=== PATIENT | female | born 1940 | race Caucasian/White ===

== ENCOUNTER 2016-04-08 15:17 | Outpatient (CLI) | payer MEDICARE | END 2016-04-08 15:18 | disposition home or self-care (01) | DX: R61 Generalized hyperhidrosis (principal); R68.83 Chills (without fever); R05 Cough ==

== ENCOUNTER 2016-04-08 15:40 | Outpatient (CLI) | payer MEDICARE | END 2016-04-08 15:41 | disposition home or self-care (01) | DX: J98.11 Atelectasis (principal); R05 Cough; R61 Generalized hyperhidrosis; R68.83 Chills (without fever) ==

== ENCOUNTER 2016-04-25 08:28 | Outpatient (CLI) | payer MEDICARE | END 2016-04-25 08:29 | disposition home or self-care (01) | DX: Q50.5 Embryonic cyst of broad ligament (principal) ==

== ENCOUNTER 2016-06-26 12:07 | Outpatient (CLI) | payer MEDICARE | END 2016-06-26 12:08 | disposition home or self-care (01) | DX: R50.9 Fever, unspecified (principal); M79.1 Myalgia; R05 Cough ==

== ENCOUNTER 2016-07-07 10:04 | Emergency (ER) | payer MEDICARE ==
[2016-07-07] MEDS ORDERED: SODIUM CHLORIDE 0.9% 1,000 ML IV ONE (10:48)
[2016-07-07] MEDS ORDERED: ONDANSETRON 4 MG/2 ML VIAL IVP STA (10:49)
[2016-07-07] MEDS ORDERED: ONDANSETRON 4 MG/2 ML VIAL ONE (11:03)
[2016-07-07] MEDS ORDERED: IOPAMIDOL-300 100 ML VIAL IVP ONE (12:03)
[2016-07-07] MEDS ORDERED: POTASSIUM BICARB 25 MEQ TABLET PO STA (12:21)
[2016-07-07] MEDS ORDERED: POTASSIUM BICARB 25 MEQ TABLET PO ONE (12:23)
[2016-07-07] MEDS ORDERED: DOXYCYCLINE 100 MG TABLET PO STA (13:10)
[2016-07-07] MEDS ORDERED: DOXYCYCLINE 100 MG TABLET PO ONE (13:22)
== END 2016-07-07 14:08 | disposition home or self-care (01) ==
DX: K57.32 Diverticulitis of large intestine without perforation or abscess without bleeding (principal); E86.0 Dehydration; R55 Syncope and collapse; K21.9 Gastro-esophageal reflux disease without esophagitis; Z90.49 Acquired absence of other specified parts of digestive tract; E03.9 Hypothyroidism, unspecified; Z88.1 Allergy status to other antibiotic agents; Z88.0 Allergy status to penicillin
CPT/HCPCS: 36415; 74177; 80053; 81003; 83605; 83690; 84484; 85025; 87040; 99283; 99284; A9270; Q9967

== ENCOUNTER 2016-10-10 11:13 | Outpatient (CLI) | payer MEDICARE ==
--- NOTE | 2016-10-10 18:12 | Ultrasound Report ---
LEFT BREAST ULTRASOUND: 10/10/2016 CLINICAL INDICATION: Nodule on mammogram. TECHNIQUE: Real-time scanning was performed with petroleum products sales representative static images obtained. Ultrasound of the left periareolar breast was performed. In the lower-outer periareolar breast, ther e is a 0.9 x 0.5 x 0.8 cm nodule, with vascularity. The appearance is suspicious. Biopsy is recomme nded. The nodule appears amenable to ultrasound-guided core needle biopsy. IMPRESSION: SMALL SOLID NODULE IN THE LEFT PERIAREOLAR BREAST. RECOMMENDATION: BIOPSY. THE NODULE APPEARS AMENABLE TO ULTRASOUND-GUIDED CORE NEEDLE BIOPSY. BIRADS CATEGORY: 4, SUSPICIOUS ABNORMALITY. Results and recommendations discussed with the patient at the time of the examination, and called to Dr. Sharma on 10/10/2016. Biopsy is scheduled for 10/24/2016 at 9:45 a.m. JOB #: [id number] EXT JOB #:[id number]
--- NOTE | 2016-10-10 19:24 | Mammography Report ---
DIGITAL DIAGNOSTIC BILATERAL MAMMOGRAM: 10/10/2016 CLINICAL INDICATION: Nipple itching left greater than right. TECHNIQUE: Bilateral CC, MLO, true lateral views. COMPARISON: 01/04/2016, 11/26/2013, 10/22/2012, 09/27/2011, 12/12/2009, 11/20/2007, 11/20/2006. The breasts again demonstrate fatty replacement bilaterally. A few coarse, typically benign calcific ations are present. In the left retroareolar breast, there is a circumscribed 9 mm nodule. No mammo graphically suspicious findings are appreciated in the right breast. Please also refer to left breas t ultrasound of the same day. IMPRESSION: SUSPICIOUS ABNORMALITY, WITH A SOLID NODULE ON ULTRASOUND CORRELATING WITH THE LEFT RETR OAREOLAR MAMMOGRAPHIC ABNORMALITY. RECOMMENDATION: BIOPSY. THE NODULE APPEARS AMENABLE TO ULTRASOUND-GUIDED CORE NEEDLE BIOPSY. BIRADS CATEGORY: 4, SUSPICIOUS ABNORMALITY. Results and recommendations discussed with the patient at the time of the examination, and called to Dr. Sharma on 10/10/2016. Biopsy is scheduled for 10/24/2016 at 9:45 a.m. STANDARD QUALIFYING STATEMENTS 1. This examination was reviewed with the aid of Computed-Aided Detection (CAD). 2. A negative or benign imaging report should not delay biopsy if clinically suspicious findings are present. Consider surgical consultation if warranted. More than 5% of cancers are not identified b y imaging. 3. Dense breasts may obscure an underlying neoplasm. JOB #: [id number] EXT JOB #:[id number]
== END 2016-10-10 11:14 | disposition home or self-care (01) ==
LOC: DI 11:13
PROVIDERS: ATTEND Internal Medicine
DX: N63 Unspecified lump in breast (principal)
CPT/HCPCS: 76642; G0204; 77066

== ENCOUNTER 2016-10-23 08:50 | Outpatient (CLI) | payer MEDICARE ==
[2016-10-23] MEDS: BUFFERED LIDOCAINE 10 ML SYRINGE IU ONE ×2 (11:01→11:03)
[2016-10-23 11:36] VITALS: BP 152/91
[2016-10-23] MEDS ORDERED: SODIUM CHLORIDE 0.9% EPI SCH (12:00)
[2016-10-23] MEDS ORDERED: BUPIVACAINE 0.5% EPI SCH (12:00)
--- NOTE | 2016-10-23 12:08 | Ultrasound Report ---
ULTRASOUND-GUIDED CORE NEEDLE BIOPSY LEFT BREAST NODULE: 10/23/2016 CLINICAL INDICATION: Periareolar nodule. FINDINGS: Following obtaining informed consent, the left breast was prepped and draped in the usual sterile fashion. Using standard aseptic technique, both 1% buffered lidocaine and Marcaine were injec falguni into the left breast for local anesthesia. A small sade was made in the skin with a #11 blade. A 12-gauge Celero vacuum-assisted device was used to obtain three specimens. A Celero marker was placed into the biopsy cavity under ultrasound guidance. The patient was taken to a separate mammography machine, and a two view digital mammogram was performed, documenting the greg er in the expected location and no significant postbiopsy hematoma. The wound was dressed and ice applied. The patient was observed for approximately 15 minutes, then wa s discharged from [facility] in good condition following instructions on wound care and obtai margaret biopsy results. The tissue was sent for histologic analysis. IMPRESSION: ULTRASOUND-GUIDED BIOPSY OF THE LEFT BREAST. AN ADDENDUM WILL BE MADE TO THIS REPORT WHEN PATHOLOGY IS REVIEWED TO ESTABLISH CONCORDANCE. JOB #: [id number] EXT JOB #:[id number]
== END 2016-10-23 08:51 | disposition home or self-care (01) ==
LOC: DI 08:50
PROVIDERS: ATTEND Internal Medicine
DX: N60.02 Solitary cyst of left breast (principal); N60.82 Other benign mammary dysplasias of left breast
CPT/HCPCS: 19083; G0206; 88305

== ENCOUNTER 2016-11-05 13:59 | Inpatient (IN) | payer MEDICARE ==
[2016-11-05] MEDS ORDERED: HYDROmorphone 1 MG/ML SYRINGE IVP STA (15:17)
[2016-11-05] MEDS ORDERED: SODIUM CHLORIDE 0.9% 1,000 ML IV ONE (15:17)
[2016-11-05] MEDS ORDERED: ONDANSETRON 4 MG/2 ML VIAL IVP STA (15:18)
[2016-11-05 15:40] LABS: BASOPHILS # (AUTO) 0.1 10^3/uL (0.0-0.1); BASOPHILS % (AUTO) 0.6 %; EOSINOPHILS % (AUTO) 0.3 %; HCT - HEMATOCRIT 38.6 % (37.0-47.0); HGB - HEMOGLOBIN 13.1 g/dL (12.0-16.0); LYMPHOCYTES # (AUTO) 1.4 10^3/uL (1.5-3.5); LYMPHOCYTES % (AUTO) 12.7 %; MEAN CORPUSCULAR HEMOGLOBIN 29.7 pg (27.0-31.0); MEAN CORPUSCULAR HGB CONC 33.9 g/dL (32.0-36.0); MEAN CORPUSCULAR VOLUME 87.8 fL (81.0-99.0); MEAN PLATELET VOLUME 8.5 fL (7.9-10.8); MONOCYTES # (AUTO) 0.8 10^3/uL (0.0-1.0); NEUTROPHILS # (AUTO) 8.9 10^3/uL (1.5-6.6); NEUTROPHILS % (AUTO) 79.4 %; UNCORRECTED WHITE BLOOD COUNT 11.2 x10^3/uL; WHITE BLOOD COUNT 11.2 x10^3/uL (4.8-10.8)
[2016-11-05] MEDS ORDERED: HYDROmorphone 1 MG/ML SYRINGE ONE (15:46)
[2016-11-05] MEDS ORDERED: ONDANSETRON 4 MG/2 ML VIAL ONE (15:46)
--- NOTE | 2016-11-05 15:48 | ED Physician Documentation ---
History of Present Illness - Stated complaint Stated Complaint: DEVERTICULITIS - Chief complaint Chief Complaint: Abd Pain - Additonal information Additional information: hx from pt 76 female hx recurrent diverticulitis onset lower abd pain last night felt like prior case of divertic so she started doxy which is the only ab she is not allergic too now pain is severe - much worse than prior episode, mostly lower abd, + diarrhea pshx appy Review of Systems Constitutional: denies: Fever Cardiac: denies: Chest pain / pressure Respiratory: denies: Dyspnea GI: reports: Abdominal Pain, Diarrhea Neurologic: denies: Generalized weakness Endocrine: denies: Easy bruising / bleeding Immunocompromised: denies: Immunocompromised PD PAST MEDICAL HISTORY - Past Medical History Cardiovascular: None Respiratory: None Neuro: None Endocrine/Autoimmune: HyPOthyroidism GI: GERD, Diverticulitis, 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 HEENT: Chronic hearing loss Musculoskeletal: None Derm: Herpes zoster - Past Surgical History Past Surgical History: Yes General: Appendectomy HEENT: Tonsil/Adenoidectomy - Present Medications Home Medications: Ambulatory Orders Medication Instructions Recorded Confirmed Levothyroxine Sodium [Tirosint] 100 mcg PO DAILY 06/08/13 11/05/16 Doxycycline Hyclate 100 mg PO BID #20 capsule 07/07/16 11/05/16 - Allergies Allergies/Adverse Reactions: Allergies Allergy/AdvReac Type Severity Reaction Status Date / Time metronidazole [From Flagyl] Allergy Severe Unknown Verified 11/05/16 14:33 Metronidazole HCl * Allergy Mild Unknown Verified 11/05/16 14:33 [From Flagyl] acetaminophen [From Vicodin] Allergy Unknown Verified 11/05/16 14:33 cephalexin monohydrate * Allergy Unknown Verified 11/05/16 14:33 [From Keflex] codeine Allergy Respiratory Verified 11/05/16 14:33 hydrocodone bitartrate * Allergy Unknown Verified 11/05/16 14:33 [From Vicodin] meperidine HCl * Allergy Hives Verified 11/05/16 14:33 [From Demerol] moxifloxacin HCl * Allergy Unknown Verified 11/05/16 14:33 [From Avelox] naproxen [From Naprosyn] Allergy Hives Verified 11/05/16 14:33 Penicillins Allergy Unknown Verified 11/05/16 14:33 ciprofloxacin AdvReac Mild vomiting Verified 11/05/16 14:33 - Social History Does the pt smoke?: No Smoking Status: Never smoker Does the pt drink ETOH?: Yes Does the pt have substance abuse?: No - Immunizations Immunizations are current?: Yes - POLST Patient has POLST: No PD ED PE NORMAL - Vitals Vital signs reviewed: Yes - Cardiac Cardiac: RRR - Respiratory Respiratory: No respiratory distress - Abdomen Abdomen: Other (dec bowel sounds, mildly distended, markedly tender with rebound to lower abd diffusely, no inguinal hernia apprciated) - Derm Derm: Normal color - Neuro Neuro: Alert and oriented X 3 Results - Vitals Vitals: Vital Signs - 24 hr 11/05/16 11/05/16 11/05/16 14:30 17:53 20:13 Temperature 37.6 C H 36.7 C Heart Rate 91 74 83 Respiratory 16 14 18 Rate Blood Pressure 142/84 H 124/65 120/77 O2 Saturation 96 99 96 Oxygen O2 Source Room air - Labs Labs: Laboratory Tests 11/05/16 11/05/16 11/05/16 15:25 15:25 17:45 WBC 11.2 H RBC 4.40 Hgb 13.1 Hct 38.6 MCV 87.8 MCH 29.7 MCHC 33.9 RDW 13.0 Plt Count 220 MPV 8.5 Neut # 8.9 H Lymph # 1.4 L [place] # 0.8 Eos # 0.0 Baso # 0.1 Absolute Nucleated RBC 0.00 Nucleated RBCs 0.0 Sodium 139 Potassium 2.8 L Chloride 104 Carbon Dioxide 26 Anion Gap 9.0 BUN 9 Creatinine 0.9 Estimated GFR (MDRD) 61 L Glucose 131 H Calcium 9.3 Total Bilirubin 0.8 AST 15 ALT 20 Alkaline Phosphatase 62 Total Protein 6.8 Albumin 3.8 Globulin 3.0 Albumin/Globulin Ratio 1.3 Lipase 21 L Urine Color YELLOW Urine Clarity CLEAR Urine pH 5.5 Ur Specific [place] 1.015 Urine Protein NEGATIVE Urine Glucose (UA) NEGATIVE Urine Ketones NEGATIVE Urine Occult Blood TRACE-INTA Urine Nitrite NEGATIVE Urine Bilirubin NEGATIVE Urine Urobilinogen 0.2 (NORMAL) Ur Leukocyte Esterase NEGATIVE Ur Microscopic Review NOT INDICATED Urine Culture Comments NOT INDICATED - Rads (name of study) CT abd pelvis Radiology: See rad report (marked mid and distal sigmoid diverticultis without obstruction or abscess, large ddx) PD MEDICAL DECISION MAKING - ED course ED course: pt has many med allergies and only can take doxy already on PO doxy at home states she cannot take penicillins or cephalosporins or cipro or flagyl so will try doxy IV given severity of pain and CT findings and failing PO tx at home albeit with a less than ideal ab regimen 2/2 allergies, feel pt merits admission Departure - Departure Disposition: [facility] DC/Evaristo Clinical Impression: Diverticulitis of gastrointestinal tract Discharge Date/Time: 11/05/16 22:32
[2016-11-05 15:52] LABS: ALBUMIN/GLOBULIN RATIO 1.3 (1.0-2.2); BILIRUBIN,TOTAL 0.8 mg/dL (0.2-1.0); CALCIUM 9.3 mg/dL (8.5-10.3); CREATININE 0.9 mg/dL (0.4-1.0); POTASSIUM 2.8 mmol/L (3.5-5.0); TOTAL PROTEIN 6.8 g/dL (6.7-8.2)
[2016-11-05 18:16] LABS: BILIRUBIN,URINE NEGATIVE (NEGATIVE); PH,URINE 5.5 PH (5.0-7.5); UA CHARGE (STRIP ONLY) YES; UR CULTURE IF IND NOT INDICATED
--- NOTE | 2016-11-05 19:46 | CT Preliminary Report ---
Exam: CT Abdomen/Pelvis W/O IMPRESSION: Marked mid and distal sigmoid diverticulitis without obstruction or abscess formation at this time. Full differential would also include colitis, pseudomembranous colitis, inflammatory bowel disease, ischemia. This is in the same region that previously had very mild inflammatory changes. [facility] SITE ID: [id number]
--- NOTE | 2016-11-05 20:17 | CT Report ---
EXAM: CT ABDOMEN AND PELVIS EXAM DATE: 11/05/2016 04:16 PM. CLINICAL HISTORY: History of diverticulitis. Lower abdominal pain for the last 2 days. COMPARISONS: 07/07/2016. TECHNIQUE: Routine helical CT imaging was performed through the abdomen and pelvis. IV contrast: None . Enteric contrast: No. Reconstructions: Coronal and sagittal. In accordance with CT protocol optimization, one or more of the following dose reduction techniques w ere utilized for this exam: automated exposure control, adjustment of mA and/or KV based on patient s ize, or use of iterative reconstructive technique. FINDINGS: Lung Bases: Unremarkable. Liver: Normal. No masses. Gallbladder/Bile Ducts: Cholecystectomy. Spleen: Normal. Pancreas: Normal. Adrenal Glands: Normal. Kidneys: Normal. No masses or hydronephrosis. Peritoneal Cavity/Bowel: Diverticula off the colon. Interval development of marked irregular wall thi ckening, multiple inflamed diverticuli, and moderate amount of adjacent mesenteric edema involving th e mid and distal 10 cm of the sigmoid colon. This is in the same region where previously only a small amount of mesenteric edema was present. No extraluminal air. Small amount of free fluid adjacent to it. Appendix not visualized. No free air nor significant adenopathy. Large and small bowel normal caliber. Pelvic Organs: No stones in the small caliber urinary bladder. Uterus is normal caliber. Small amount of free fluid adjacent to the inflamed sigmoid colon. Vasculature: No aneurysms or other significant abnormality. Bones: Marked degenerative disk disease L5-S1. Other: None. IMPRESSION: Marked mid and distal sigmoid diverticulitis without obstruction or abscess formation at this time. Full differential would also include colitis, pseudomembranous colitis, inflammatory bowel disease, ischemia. This is in the same region that previously had very mild inflammatory changes. [facility] Referring Provider Line: [phone] SITE ID: [id number]
[2016-11-05] MEDS ORDERED: DOXYCYCLINE INJ 100 MG in SODIUM CHLORIDE 0.9% MINIBAG 100 ML IV STA (20:22)
[2016-11-05] MEDS ORDERED: ONDANSETRON ODT 4 MG TABLET TL PRN (20:50)
[2016-11-05] MEDS ORDERED: ONDANSETRON 4 MG/2 ML VIAL IVP PRN (20:50)
[2016-11-05] MEDS ORDERED: HYDROmorphone 1 MG/ML SYRINGE IVP PRN (20:50)
[2016-11-05] MEDS ORDERED: IMIPENEM/CILASTATIN 250 MG in SODIUM CHLORIDE 0.9% MINIBAG 100 ML IV SCH (21:00)
[2016-11-05] MEDS ORDERED: CLINDAMYCIN INJ 300 MG in SODIUM CHLORIDE 0.9% 50 ML IV SCH (21:23)
[2016-11-05] MEDS ORDERED: SODIUM CHLORIDE 0.9% 50 ML IV ONE (22:35)
[2016-11-05] MEDS: SODIUM CHLORIDE 0.9% 1,000 ML IV SCH (22:38)
[2016-11-05] MEDS: AZTREONAM 2 GM in SODIUM CHLORIDE 0.9% MINIBAG 100 ML IV SCH (22:38)
[2016-11-05] MEDS: SODIUM CHLORIDE FLUSH 0.9% 10 ML SYRINGE IVP SCH (23:04)
[2016-11-05] MEDS ORDERED: CLINDAMYCIN 300 MG/2 ML VIAL ONE (23:10)
--- NOTE | 2016-11-06 00:01 | HISTORY & PHYSICAL EXAMINATION ---
Chief Complaint - Chief Complaint Chief Complaint: LLQ pain in a patient with recurrent boughts of diverticulitis for 7 years. History of Present Illness - Admitted From Admitted From:: Emergency room - History Obtained [facility] History obtained from: Patient and Dr. Chavez - History of Present Illness HPI Comment/Other: She has had multiple episodes over the last 6-7 years with several episodes documented by ct scan : 2008, 2013, 03/2014, 12/2015 and 06/2016. She recently had abdominal pain again starting 10 days or so again on the left side side and was started on doxycycline again. She states this is her 10th episode and is lamenting this is unfair because she is on a high fiber diet and drinks plenty of water. She has multiple drug allergies. In reviewing her ct scans, the disease is usually confined to the sigmoid colon. However, the 03/2014 event was located in the splenic flexure area on 11/12. She is allergic to pcn, flagyl and cipro which limits the oral antibiotics that can be used to treated her disease. She has not needed to be hospitalized for the diverticulitis. Her last colonoscopies were about 2010 as well as 05/2015 with no significant problems being identified other than benign tubular adenomas. She has history of Barretts with upper endoscopy in 2012 and most recently 05/2015 (pathology is negative for dysplasia and H pylori) . She denies any problems with chronic diarrhea or constipation and or problems emptying her rectum. She gets pain from time to time in the mid lower abdominal area that may improve by having a bowel movement. A pelvic ultrasound was done 04/16 and a small ovarian cyst was seen but nothing else. No c/o seeing blood in her stools. No family history of colon cancer. She has received opinions from multiple surgeons including Dr. Cunningham at [facility] 02/2015, and a surgeon at [facility] 06/2015. She's also had an opinion from Dr. Jonah Hairston in 2014 and 2015. All have recommended surgery and she agreed to have a bowel resection in November [address] Hairston. However Dr. Hairston referred her to [facility]. She is unclear why she's not had surgery. She states this is by far the worst episode she's ever had. The pain was ferocious. At first it was just lower abdominal aching with diarrhea and nausea for greater than a week. She finally saw her primary care provider was put on doxycycline but it hasn't helped. She was seen by Dr. Susan Chavez in the emergency room where she is afebrile with a mildly elevated white cell count and has mild peritoneal findings on exam. CAT scan confirms the recurrent diverticulitis but no abscess, or free air. She is now admitted for IV antibiotics. Review of Systems - Constitutional Constitutional: reports: Fatigue, Fever (maybe low grade, she can't tell), Poor appetite. denies: Chills, Malaise, Weakness, Diaphoresis, Night sweats - Eyes Eyes: denies: Pain, Irritation, Amaurosis, Blurred vision - Ears, Nose & Throat Ears, Nose & Throat: denies: Ear pain - Cardiovascular Cariovascular: denies: Irregular heart rate, Palpitations, Chest pain, Lightheadedness, Syncope - Respiratory Respiratory: reports: Snoring (loudly at times). denies: Cough, Sputum production, Wheezing, SOB at rest, SOB with exertion, Apnea - Gastrointestinal Gastrointestinal: reports: Abdominal pain, Abdominal distention, Diarrhea, Reflux/heartburn. denies: Rectal bleeding - Genitourinary Genitourinary: denies: Dysuria, Frequency, Urgency, Flank pain - Musculoskeletal Musculoskeletal: denies: Muscle pain, Back pain, Muscle aches - Integumentary Integumentary: denies: Rash, Pruritis, Lesions - Neurological Neurological: denies: General weakness, Focal weakness, Headache, Dizziness, Numbness, Memory problems - Psychiatric Psychiatric: reports: Anxiety (and stress with husbands recent diagnosis of prostate cancer) - Endocrine Endocrine: denies: Polyuria, Polydypsia - Hematologic/Lymphatic Hematologic/Lymphatic: denies: Anemia, Bruising, Petechiae History - Past Medical History Cardiovascular: reports: High cholesterol Respiratory: reports: None Neuro: reports: None Endocrine/Autoimmune: reports: HyPOthyroidism GI: reports: GERD (EGD 2010, and 05/2015. Stomach polyp. Barretts visually seen by path negtive with the last EGD), Hiatal hernia, Colon polyps, Diverticulitis (10 episodes. surgery recommended since 2014. ), Cholelithiasis (s/p lap frankie here 2008 and post op with retained CBD. Sent to [facility] and had pancreatitis after ERCP so then sent to [facility]. 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 She is still completely independent, cleans house, drives a car, pays bills.) Living Situation: With spouse/s.o. Social History Notes: stopped smoking in 1974 and smoke less than half a pack per day - Substance History Use: Uses substance without health or social issues: NONE (5 glasses a year of wine) - POLST Patient has POLST: No POLST Status: DNR (While she would like all measures to save her life such as emergency surgery, intubation for pneumonia and respiratory failure, blood transfusion products, antibiotics, ICU care, she does not want to be resuscitated in the event of a cardiopulmonary arrest that occurs after all the above been done) Meds/Allgy - Home Medications Home Medications: Ambulatory Orders Medication Instructions Recorded Confirmed Levothyroxine Sodium [Tirosint] 100 mcg PO DAILY 06/08/13 11/05/16 Doxycycline Hyclate 100 mg PO BID #20 capsule 07/07/16 11/05/16 - Allergies Allergies/Adverse Reactions: Allergies Allergy/AdvReac Type Severity Reaction Status Date / Time metronidazole [From Flagyl] Allergy Severe Unknown Verified 11/05/16 14:33 Metronidazole HCl * Allergy Mild Unknown Verified 11/05/16 14:33 [From Flagyl] acetaminophen [From Vicodin] Allergy Unknown Verified 11/05/16 14:33 cephalexin monohydrate * Allergy Unknown Verified 11/05/16 14:33 [From Keflex] codeine Allergy Respiratory Verified 11/05/16 14:33 hydrocodone bitartrate * Allergy Unknown Verified 11/05/16 14:33 [From Vicodin] meperidine HCl * Allergy Hives Verified 11/05/16 14:33 [From Demerol] moxifloxacin HCl * Allergy Unknown Verified 11/05/16 14:33 [From Avelox] naproxen [From Naprosyn] Allergy Hives Verified 11/05/16 14:33 Penicillins Allergy Unknown Verified 11/05/16 14:33 ciprofloxacin AdvReac Mild vomiting Verified 11/05/16 14:33 Exam - Vital Signs Vital Signs: Vital Signs x48h Temp Pulse Resp BP Pulse Ox 11/05/16 22:47 37.6 C H 79 18 121/77 92 - Physical Exam General Appearance: positive: Alert, Mild distress, Other (thin slender elderly female who looks stated age) Eyes Bilateral: positive: PERRL, EOMI ENT: positive: Dry mucous membranes (with dried lip stick) Neck: positive: Thyroid nml, No JVD. negative: Lymphadenopathy (R), Lymphadenopathy (L), Stiff neck, Carotid bruit Respiratory: positive: Chest non-tender. negative: Wheezes, Rales, Rhonchi Cardiovascular: positive: Regular rate & rhythm. negative: Systolic murmur, Gallop/S4, Friction rub Peripheral Pulses: positive: 2+ Abdomen: positive: No distention, Tenderness (with moving bed or moving pelvis) , Guarding, Abnml bowel sounds (quiet). negative: Rebound Back: positive: Nml inspection Skin: positive: Color nml, No rash, Warm, Dry Extremities: positive: Non-tender, Full ROM, Nml appearance Neurologic/Psychiatric: positive: Oriented x3, CN's nml (2-12), Motor nml, Sensation nml. negative: Facial droop, Slurred/abnml speech Conclusion/Plan - Problem List (1) Sigmoid diverticulitis Conclusion/Plan: recurrent and treatment limited by multiple allergies to antibiotics. peritoneal findings on exam but CT negative for free air or abcess. I called the infectious disease consult line with the [facility] and spoke to Dr. Infante. He offered 3 recommendations. One was a combination of clindamycin and aztreonam. OR cefepime as a single agent in spite of her history of allergy to penicillin. OR ceftriaxone and clindamycin given that she doesn't do well with Flagyl. Again he feels that her risk of reaction to the cephalosporin is much lower in spite of her history of penicillin allergy. But I explained that she does have a documented history with rash to cephalosporins. As such I will be ordering clindamycin and aztreonam. She would like to see Dr. Hairston again. She really wants to be considered for a bowel resection. I will call his office and let him know that she is here. He is not construction economist tonight but she has specifically requested him. Check CBC in am. (2) Hypokalemia due to loss of potassium Conclusion/Plan: most likely the diarrhea she describes. will supplement with 4 K rider 10 meq bags. recheck in am, (3) LLQ abdominal pain Conclusion/Plan: she is NPO. will control pain with dilaudid 0.5 mg IVP q2 h prn. - Lab Results Fish Bones: 11/05/16 15:25 11/05/16 15:25 Issues/Core Measures - Anticipated LOS Anticipated Stay Length: 2 or more midnights - DVT/VTE - Prophylaxis VTE/DVT Device ordered at admit?: Yes
[2016-11-06] MEDS: POTASSIUM CHLOR 10 MEQ/100 ML 100 ML IV SCH ×4 (00:58→07:21)
[2016-11-06] MEDS: SODIUM CHLORIDE FLUSH 0.9% 10 ML SYRINGE IVP SCH ×3 (05:39→21:31)
[2016-11-06 05:57] LABS: BASOPHILS # (AUTO) 0.1 10^3/uL (0.0-0.1); BASOPHILS % (AUTO) 0.6 %; EOSINOPHILS % (AUTO) 0.3 %; HCT - HEMATOCRIT 34.2 % (37.0-47.0); HGB - HEMOGLOBIN 11.7 g/dL (12.0-16.0); LYMPHOCYTES # (AUTO) 1.6 10^3/uL (1.5-3.5); LYMPHOCYTES % (AUTO) 15.7 %; MEAN CORPUSCULAR HEMOGLOBIN 30.2 pg (27.0-31.0); MEAN CORPUSCULAR HGB CONC 34.3 g/dL (32.0-36.0); MEAN CORPUSCULAR VOLUME 87.9 fL (81.0-99.0); MEAN PLATELET VOLUME 8.7 fL (7.9-10.8); MONOCYTES # (AUTO) 0.8 10^3/uL (0.0-1.0); MONOCYTES % (AUTO) 7.4 %; NEUTROPHILS # (AUTO) 7.8 10^3/uL (1.5-6.6); RED BLOOD COUNT 3.89 10^6/uL (4.20-5.40); RED CELL DISTRIBUTION WIDTH 12.8 % (12.0-15.0); UNCORRECTED WHITE BLOOD COUNT 10.3 x10^3/uL; WHITE BLOOD COUNT 10.3 x10^3/uL (4.8-10.8)
[2016-11-06] MEDS: AZTREONAM 2 GM in SODIUM CHLORIDE 0.9% MINIBAG 100 ML IV SCH ×3 (05:58→21:30)
[2016-11-06 06:07] LABS: CALCIUM 8.5 mg/dL (8.5-10.3); CREATININE 0.7 mg/dL (0.4-1.0); POTASSIUM 3.5 mmol/L (3.5-5.0)
--- NOTE | 2016-11-06 08:07 | PROVIDER PROGRESS NOTE ---
Assessment/Plan - Problem List (1) Sigmoid diverticulitis Assessment/Plan: improving with less pain continue Clindamycin and Aztreonam start clear liquid today patient prefers outpatient f/u with Dr. Hairston for possible surgical intervention (2) LLQ abdominal pain Assessment/Plan: due to above; improving (3) Hypokalemia due to loss of potassium Assessment/Plan: received supplement resolving (4) Leukocytosis Assessment/Plan: resolving; likely due to diverticulitis (5) Hypothyroid Assessment/Plan: continue home medicine - Current Meds Current Meds: Current Medications Generic Name Dose Route Start Last Admin Trade Name Freq PRN Reason Stop Dose Admin Sodium Chloride 1,000 mls @ 100 mls/hr 11/05/16 21:00 11/05/16 22:38 Normal Saline 0.9% IV 100 mls/hr .Q10H ADEBAYO Administration Aztreonam 2 gm/ Sodium 100 mls @ 100 mls/hr 11/05/16 22:00 11/06/16 05:58 Chloride IV 100 mls/hr TID ADEBAYO Administration Sodium Chloride 10 ml 11/05/16 22:00 11/06/16 05:39 Normal Saline Flush 0.9% IVP 10 ml Q8HR ADEBAYO Administration - Lab Result Fish Bone Diagrams: 11/06/16 05:39 11/06/16 05:39 - Diagnostic Imaging Results Diagnostic Imaging Results: Final report reviewed - Additional Planning Condition/Complexity: Improved Plan Discussed with:: Patient Time Spent: 31-60 minutes Subjective - Subjective Patient Reports: Headache Nursing Reports: Headache Objective Vital Signs: Vital Signs - 24 hr 11/05/16 11/06/16 22:47 00:45 Temperature 37.6 C H 36.8 C Heart Rate [ 79 72 Brachial] Respiratory 18 12 Rate Blood Pressure 121/77 108/64 [Right Brachial artery] O2 Saturation 92 92 Oxygen O2 Source Room air I&O (Last 24 Hrs): Intake and Output Totals x24h 11/04/16 11/05/16 11/06/16 23:59 23:59 23:59 Intake Total 770 Output Total 350 Balance 420 General: Alert, Oriented x3, Cooperative HEENT: Atraumatic, PERRLA, EOMI Neck: Supple Neuro: Alert, Oriented Times 3 Cardiovascular: Regular rate, Normal S1, Normal S2 Respiratory: No respiratory distress, Breath sounds nml Abdomen: Normal bowel sounds, Soft, Other (tender in lower abdomen; positive for guarding, no rebound.) Extremities: No clubbing, No cyanosis Skin: No rashes - Results Results: Laboratory Results WBC 10.3 x10^3/uL (4.8-10.8) 11/06/16 05:39 RBC 3.89 10^6/uL (4.20-5.40) L 11/06/16 05:39 Hgb 11.7 g/dL (12.0-16.0) L 11/06/16 05:39 Hct 34.2 % (37.0-47.0) L 11/06/16 05:39 MCV 87.9 fL (81.0-99.0) 11/06/16 05:39 MCH 30.2 pg (27.0-31.0) 11/06/16 05:39 MCHC 34.3 g/dL (32.0-36.0) 11/06/16 05:39 RDW 12.8 % (12.0-15.0) 11/06/16 05:39 Plt Count 196 10^3/uL (130-450) 11/06/16 05:39 MPV 8.7 fL (7.9-10.8) 11/06/16 05:39 Neut # 7.8 10^3/uL (1.5-6.6) H 11/06/16 05:39 Lymph # 1.6 10^3/uL (1.5-3.5) 11/06/16 05:39 [place] # 0.8 10^3/uL (0.0-1.0) 11/06/16 05:39 Eos # 0.0 10^3/uL (0.0-0.7) 11/06/16 05:39 Baso # 0.1 10^3/uL (0.0-0.1) 11/06/16 05:39 Absolute Nucleated RBC 0.00 x10^3/uL 11/06/16 05:39 Nucleated RBCs 0.0 /100WBC 11/06/16 05:39 Sodium 141 mmol/L (135-145) 11/06/16 05:39 Potassium 3.5 mmol/L (3.5-5.0) 11/06/16 05:39 Chloride 110 mmol/L (101-111) 11/06/16 05:39 Carbon Dioxide 23 mmol/L (21-32) 11/06/16 05:39 Anion Gap 8.0 (6-13) 11/06/16 05:39 BUN 7 mg/dL (6-20) 11/06/16 05:39 Creatinine 0.7 mg/dL (0.4-1.0) 11/06/16 05:39 Estimated GFR (MDRD) 82 (>89) L 11/06/16 05:39 Glucose 104 mg/dL (70-100) H 11/06/16 05:39 Calcium 8.5 mg/dL (8.5-10.3) 11/06/16 05:39 Total Bilirubin 0.8 mg/dL (0.2-1.0) 11/05/16 15:25 AST 15 IU/L (10-42) 11/05/16 15:25 ALT 20 IU/L (10-60) 11/05/16 15:25 Alkaline Phosphatase 62 IU/L (42-121) 11/05/16 15:25 Total Protein 6.8 g/dL (6.7-8.2) 11/05/16 15:25 Albumin 3.8 g/dL (3.2-5.5) 11/05/16 15:25 Globulin 3.0 g/dL (2.1-4.2) 11/05/16 15:25 Albumin/Globulin Ratio 1.3 (1.0-2.2) 11/05/16 15:25 Lipase 21 U/L (22-51) L 11/05/16 15:25 Urine Color YELLOW 11/05/16 17:45 Urine Clarity CLEAR (CLEAR) 11/05/16 17:45 Urine pH 5.5 PH (5.0-7.5) 11/05/16 17:45 Ur Specific [place] 1.015 (1.002-1.030) 11/05/16 17:45 Urine Protein NEGATIVE mg/dL (NEGATIVE) 11/05/16 17:45 Urine Glucose (UA) NEGATIVE mg/dL (NEGATIVE) 11/05/16 17:45 Urine Ketones NEGATIVE mg/dL (NEGATIVE) 11/05/16 17:45 Urine Occult Blood TRACE-INTA (NEGATIVE) 11/05/16 17:45 Urine Nitrite NEGATIVE (NEGATIVE) 11/05/16 17:45 Urine Bilirubin NEGATIVE (NEGATIVE) 11/05/16 17:45 Urine Urobilinogen 0.2 (NORMAL) E.U./dL (NORMAL) 11/05/16 17:45 Ur Leukocyte Esterase NEGATIVE (NEGATIVE) 11/05/16 17:45 Ur Microscopic Review NOT INDICATED 11/05/16 17:45 Urine Culture Comments NOT INDICATED 11/05/16 17:45 - Procedures Procedures: Procedures EXCISION OF ASCENDING COLON, ENDO (06/08/15) EXCISION OF DUODENUM, ENDO, DIAGN (06/08/15) EXCISION OF LOWER ESOPHAGUS, ENDO, DIAGN (06/08/15) EXCISION OF STOMACH, ENDO (06/08/15)
[2016-11-06] MEDS: POLYETHYLENE GLYCOL 3350 17 GM PACKET PO SCH (10:28)
[2016-11-06] MEDS: LEVOTHYROXINE 100 MCG TABLET PO SCH (10:29)
[2016-11-06] MEDS: SODIUM CHLORIDE FLUSH 0.9% 10 ML SYRINGE IVP PRN (10:48)
[2016-11-06] MEDS: SODIUM CHLORIDE 0.9% 1,000 ML IV SCH ×2 (12:22→23:37)
[2016-11-07] MEDS: AZTREONAM 2 GM in SODIUM CHLORIDE 0.9% MINIBAG 100 ML IV SCH ×3 (05:56→21:29)
[2016-11-07] MEDS: SODIUM CHLORIDE FLUSH 0.9% 10 ML SYRINGE IVP SCH ×3 (05:57→21:28)
[2016-11-07] MEDS: POLYETHYLENE GLYCOL 3350 17 GM PACKET PO SCH (08:56)
[2016-11-07] MEDS: LEVOTHYROXINE 100 MCG TABLET PO SCH (09:46)
[2016-11-07] MEDS: SODIUM CHLORIDE 0.9% 1,000 ML IV SCH ×2 (09:49→21:29)
--- NOTE | 2016-11-07 10:04 | PROVIDER PROGRESS NOTE ---
Assessment/Plan - Problem List (1) Sigmoid diverticulitis Assessment/Plan: Assessment/Plan: improving with less pain continue Clindamycin and Aztreonam tolerated clear; change to full liquid diarrhea-- check stool culture and C-diff patient prefers outpatient f/u with Dr. Hairston for possible surgical intervention may be able to do outpatient iv treatment for total 7 days for diverticulitis (2) LLQ abdominal pain Assessment/Plan: due to above; improving (3) Hypokalemia due to loss of potassium Assessment/Plan: received supplement resolving (4) Leukocytosis Assessment/Plan: resolving; likely due to diverticulitis (5) Hypothyroid Assessment/Plan: continue home medicine - Current Meds Current Meds: Current Medications Generic Name Dose Route Start Last Admin Trade Name Freq PRN Reason Stop Dose Admin Sodium Chloride 1,000 mls @ 100 mls/hr 11/05/16 21:00 11/06/16 23:37 Normal Saline 0.9% IV 100 mls/hr .Q10H ADEBAYO Administration Aztreonam 2 gm/ Sodium 100 mls @ 100 mls/hr 11/05/16 22:00 11/07/16 05:56 Chloride IV 100 mls/hr TID ADEBAYO Administration Levothyroxine Sodium 100 mcg 11/06/16 09:00 11/06/16 10:29 Synthroid PO 100 mcg DAILY ADEBAYO Administration Polyethylene Glycol 17 gm 11/06/16 09:00 11/07/16 08:56 Miralax PO Not Given DAILY ADEBAYO Sodium Chloride 10 ml 11/05/16 20:50 11/06/16 10:48 Normal Saline Flush 0.9% IVP 10 ml PRN PRN Administration NEEDED PER PROVIDER ORDERS Sodium Chloride 10 ml 11/05/16 22:00 11/07/16 05:57 Normal Saline Flush 0.9% IVP Not Given Q8HR ADEBAYO - Lab Result Fish Bone Diagrams: 11/06/16 05:39 11/06/16 05:39 - Diagnostic Imaging Results Diagnostic Imaging Results: Final report reviewed - Additional Planning Condition/Complexity: Improved My Orders: My Active Orders 11/06/16 14:30 Acetaminophen [Tylenol] 650 mg PO Q6HR PRN 11/07/16 CDIFF [C. DIFF BY PCR] [RAPID] Routine CUL, STOOL [CULTURE, STOOL] [RM] Routine 11/07/16 Lunch Full Liquid Diet [DIET] Plan Discussed with:: Patient, Family Time Spent: 15-30 minutes Subjective - Subjective Patient Reports: Diarrhea, Other Nursing Reports: Diarrhea Objective Vital Signs: Vital Signs - 24 hr 11/06/16 11/06/16 11/07/16 15:37 23:29 07:45 Temperature 37.4 C 37 C 36.9 C Heart Rate [ 80 82 70 Brachial] Respiratory 18 18 16 Rate Blood Pressure 114/64 [Left Brachial artery] Blood Pressure 110/60 106/59 L [Right Brachial artery] O2 Saturation 93 94 95 Oxygen O2 Source Room air I&O (Last 24 Hrs): Intake and Output Totals x24h 11/05/16 11/06/16 11/07/16 23:59 23:59 23:59 Intake Total 2994 1581 Output Total 1495 650 Balance 1499 931 General: Alert, Oriented x3, Cooperative HEENT: Atraumatic, PERRLA Neck: Supple Neuro: Alert, Non Focal Cardiovascular: Regular rate, Normal S1, Normal S2 Respiratory: No respiratory distress, Breath sounds nml Abdomen: Normal bowel sounds, Soft, Other (still having mild guarding @ lower abdomen) Extremities: No clubbing, No cyanosis Skin: No rashes - Results Results: Laboratory Results WBC 10.3 x10^3/uL (4.8-10.8) 11/06/16 05:39 RBC 3.89 10^6/uL (4.20-5.40) L 11/06/16 05:39 Hgb 11.7 g/dL (12.0-16.0) L 11/06/16 05:39 Hct 34.2 % (37.0-47.0) L 11/06/16 05:39 MCV 87.9 fL (81.0-99.0) 11/06/16 05:39 MCH 30.2 pg (27.0-31.0) 11/06/16 05:39 MCHC 34.3 g/dL (32.0-36.0) 11/06/16 05:39 RDW 12.8 % (12.0-15.0) 11/06/16 05:39 Plt Count 196 10^3/uL (130-450) 11/06/16 05:39 MPV 8.7 fL (7.9-10.8) 11/06/16 05:39 Neut # 7.8 10^3/uL (1.5-6.6) H 11/06/16 05:39 Lymph # 1.6 10^3/uL (1.5-3.5) 11/06/16 05:39 [place] # 0.8 10^3/uL (0.0-1.0) 11/06/16 05:39 Eos # 0.0 10^3/uL (0.0-0.7) 11/06/16 05:39 Baso # 0.1 10^3/uL (0.0-0.1) 11/06/16 05:39 Absolute Nucleated RBC 0.00 x10^3/uL 11/06/16 05:39 Nucleated RBCs 0.0 /100WBC 11/06/16 05:39 Sodium 141 mmol/L (135-145) 11/06/16 05:39 Potassium 3.5 mmol/L (3.5-5.0) 11/06/16 05:39 Chloride 110 mmol/L (101-111) 11/06/16 05:39 Carbon Dioxide 23 mmol/L (21-32) 11/06/16 05:39 Anion Gap 8.0 (6-13) 11/06/16 05:39 BUN 7 mg/dL (6-20) 11/06/16 05:39 Creatinine 0.7 mg/dL (0.4-1.0) 11/06/16 05:39 Estimated GFR (MDRD) 82 (>89) L 11/06/16 05:39 Glucose 104 mg/dL (70-100) H 11/06/16 05:39 Calcium 8.5 mg/dL (8.5-10.3) 11/06/16 05:39 Total Bilirubin 0.8 mg/dL (0.2-1.0) 11/05/16 15:25 AST 15 IU/L (10-42) 11/05/16 15:25 ALT 20 IU/L (10-60) 11/05/16 15:25 Alkaline Phosphatase 62 IU/L (42-121) 11/05/16 15:25 Total Protein 6.8 g/dL (6.7-8.2) 11/05/16 15:25 Albumin 3.8 g/dL (3.2-5.5) 11/05/16 15:25 Globulin 3.0 g/dL (2.1-4.2) 11/05/16 15:25 Albumin/Globulin Ratio 1.3 (1.0-2.2) 11/05/16 15:25 Lipase 21 U/L (22-51) L 11/05/16 15:25 Urine Color YELLOW 11/05/16 17:45 Urine Clarity CLEAR (CLEAR) 11/05/16 17:45 Urine pH 5.5 PH (5.0-7.5) 11/05/16 17:45 Ur Specific [place] 1.015 (1.002-1.030) 11/05/16 17:45 Urine Protein NEGATIVE mg/dL (NEGATIVE) 11/05/16 17:45 Urine Glucose (UA) NEGATIVE mg/dL (NEGATIVE) 11/05/16 17:45 Urine Ketones NEGATIVE mg/dL (NEGATIVE) 11/05/16 17:45 Urine Occult Blood TRACE-INTA (NEGATIVE) 11/05/16 17:45 Urine Nitrite NEGATIVE (NEGATIVE) 11/05/16 17:45 Urine Bilirubin NEGATIVE (NEGATIVE) 11/05/16 17:45 Urine Urobilinogen 0.2 (NORMAL) E.U./dL (NORMAL) 11/05/16 17:45 Ur Leukocyte Esterase NEGATIVE (NEGATIVE) 11/05/16 17:45 Ur Microscopic Review NOT INDICATED 11/05/16 17:45 Urine Culture Comments NOT INDICATED 11/05/16 17:45 - Procedures Procedures: Procedures EXCISION OF ASCENDING COLON, ENDO (06/08/15) EXCISION OF DUODENUM, ENDO, DIAGN (06/08/15) EXCISION OF LOWER ESOPHAGUS, ENDO, DIAGN (06/08/15) EXCISION OF STOMACH, ENDO (06/08/15)
[2016-11-07] MEDS ORDERED: CLINDAMYCIN INJ 900 MG in SODIUM CHLORIDE 0.9% 50 ML IV SCH (14:00)
[2016-11-07] MEDS ORDERED: CLINDAMYCIN IV SCH (14:00)
[2016-11-07] MEDS ORDERED: SODIUM CHLORIDE 0.9% IV SCH (14:00)
[2016-11-07] MEDS: CLINDAMYCIN 600 MG/50 ML 50 ML IV SCH ×2 (14:08→19:28)
[2016-11-07] MEDS: SACCHAROMYCES BOULARDII 250 MG CAPSULE PO SCH (16:42)
[2016-11-07] MEDS ORDERED: SACCHAROMYCES BOULARDII 250 MG CAPSULE ONE (16:42)
[2016-11-07] MEDS ORDERED: SODIUM CHLORIDE 0.9% 1,000 ML IV ONE (21:29)
[2016-11-08] MEDS: CLINDAMYCIN 600 MG/50 ML 50 ML IV SCH ×2 (03:44→12:21)
[2016-11-08] MEDS: SODIUM CHLORIDE FLUSH 0.9% 10 ML SYRINGE IVP SCH ×3 (05:45→22:47)
[2016-11-08] MEDS: AZTREONAM 2 GM in SODIUM CHLORIDE 0.9% MINIBAG 100 ML IV SCH ×3 (05:45→21:54)
[2016-11-08] MEDS: SODIUM CHLORIDE 0.9% 1,000 ML IV SCH ×3 (08:43→19:04)
[2016-11-08] MEDS: POLYETHYLENE GLYCOL 3350 17 GM PACKET PO SCH (08:44)
[2016-11-08] MEDS: LEVOTHYROXINE 100 MCG TABLET PO SCH (08:44)
[2016-11-08] MEDS: SACCHAROMYCES BOULARDII 250 MG CAPSULE PO SCH ×2 (08:44→17:17)
--- NOTE | 2016-11-08 11:19 | PROVIDER PROGRESS NOTE ---
Assessment/Plan - Problem List (1) Sigmoid diverticulitis Assessment/Plan: improving with less pain continue Clindamycin and Aztreonam tolerated full liquid diarrhea-- checked stool culture and C-diff; both are negative patient had multiple bowel movement after eating; couldn't rest well scared about infection, side effects of antibiotic treatment agree surgery consult today check lab in am added probiotic yesterday (2) LLQ abdominal pain Assessment/Plan: due to above; improving (3) Hypokalemia due to loss of potassium Assessment/Plan: received supplement resolving (4) Leukocytosis Assessment/Plan: resolving; likely due to diverticulitis (5) Hypothyroid Assessment/Plan: continue home medicine - Current Meds Current Meds: Current Medications Generic Name Dose Route Start Last Admin Trade Name Freq PRN Reason Stop Dose Admin Sodium Chloride 1,000 mls @ 100 mls/hr 11/05/16 21:00 11/08/16 08:43 Normal Saline 0.9% IV 100 mls/hr .Q10H ADEBAYO Administration Aztreonam 2 gm/ Sodium 100 mls @ 100 mls/hr 11/05/16 22:00 11/08/16 05:45 Chloride IV 100 mls/hr TID ADEBAYO Administration Clindamycin Phosphate 50 mls @ 100 mls/hr 11/07/16 12:00 11/08/16 03:44 Cleocin 600 Mg/50 Ml IV 100 mls/hr Q8H ADEBAYO Administration Levothyroxine Sodium 100 mcg 11/06/16 09:00 11/08/16 08:44 Synthroid PO 100 mcg DAILY ADEBAYO Administration Polyethylene Glycol 17 gm 11/06/16 09:00 11/08/16 08:44 Miralax PO Not Given DAILY ADEBAYO Saccharomyces Boulardii 250 mg 11/07/16 17:00 11/08/16 08:44 Florastor PO 250 mg BIDWM ADEBAYO Administration Sodium Chloride 10 ml 11/05/16 20:50 11/06/16 10:48 Normal Saline Flush 0.9% IVP 10 ml PRN PRN Administration NEEDED PER PROVIDER ORDERS Sodium Chloride 10 ml 11/05/16 22:00 11/08/16 05:45 Normal Saline Flush 0.9% IVP Not Given Q8HR ADEBAYO - Lab Result Fish Bone Diagrams: 11/06/16 05:39 11/06/16 05:39 - Additional Planning Condition/Complexity: Stable My Orders: My Active Orders 11/07/16 10:40 CUL, STOOL [CULTURE, STOOL] [RM] Routine 11/07/16 12:00 Clindamycin 600 mg/50 ml [Cleocin 600 mg/50 ml] 50 ml IV Q8H 11/07/16 17:00 Saccharomyces Boulardii [Florastor] 250 mg PO BIDWM 11/07/16 Lunch Full Liquid Diet [DIET] 11/08/16 Dietitian to Assess and Manage Nutrition [CONS] Routine General Surgery Consult [CONS] Routine 11/09/16 05:00 BMP - BASIC METABOLIC PANEL [CHEM] Routine CBC [CBC - COMP BLD CT W/AUTO DIFF] [HEME] Routine Consult/Specialty: Surgery Plan Discussed with:: Patient, Case Management, Other (surgeon) Time Spent: 15-30 minutes Subjective - Subjective Patient Reports: Other (has had frequent small amount diarrhea since yesterday after eating; seems some better; didn't rest well enough due to bowel movement; less pain at abdomen. does not like full liquid diet; drinks a lot of water) Objective Vital Signs: Vital Signs - 24 hr 11/07/16 11/08/16 11/08/16 16:05 00:10 07:56 Temperature 36.5 C 36.8 C 36.6 C Heart Rate [ 62 66 61 Brachial] Respiratory 16 16 18 Rate Blood Pressure 125/64 [Left Brachial artery] Blood Pressure 126/65 147/74 H [Right Brachial artery] O2 Saturation 96 94 96 Oxygen O2 Source Room air I&O (Last 24 Hrs): Intake and Output Totals x24h 11/06/16 11/07/16 11/08/16 23:59 23:59 23:59 Intake Total 2994 3351 1082 Output Total 1495 650 Balance 1499 2701 1082 General: Alert, Oriented x3, Cooperative, Other (emotional; crying, feel frustrated about her condition) HEENT: Atraumatic, PERRLA Neck: Supple Neuro: Non Focal Cardiovascular: Regular rate, Normal S1, Normal S2 Respiratory: No respiratory distress, Breath sounds nml Abdomen: Normal bowel sounds, Soft, Other (no guarding today) Extremities: No clubbing, No cyanosis - Results Results: Laboratory Results WBC 10.3 x10^3/uL (4.8-10.8) 11/06/16 05:39 RBC 3.89 10^6/uL (4.20-5.40) L 11/06/16 05:39 Hgb 11.7 g/dL (12.0-16.0) L 11/06/16 05:39 Hct 34.2 % (37.0-47.0) L 11/06/16 05:39 MCV 87.9 fL (81.0-99.0) 11/06/16 05:39 MCH 30.2 pg (27.0-31.0) 11/06/16 05:39 MCHC 34.3 g/dL (32.0-36.0) 11/06/16 05:39 RDW 12.8 % (12.0-15.0) 11/06/16 05:39 Plt Count 196 10^3/uL (130-450) 11/06/16 05:39 MPV 8.7 fL (7.9-10.8) 11/06/16 05:39 Neut # 7.8 10^3/uL (1.5-6.6) H 11/06/16 05:39 Lymph # 1.6 10^3/uL (1.5-3.5) 11/06/16 05:39 [place] # 0.8 10^3/uL (0.0-1.0) 11/06/16 05:39 Eos # 0.0 10^3/uL (0.0-0.7) 11/06/16 05:39 Baso # 0.1 10^3/uL (0.0-0.1) 11/06/16 05:39 Absolute Nucleated RBC 0.00 x10^3/uL 11/06/16 05:39 Nucleated RBCs 0.0 /100WBC 11/06/16 05:39 Sodium 141 mmol/L (135-145) 11/06/16 05:39 Potassium 3.5 mmol/L (3.5-5.0) 11/06/16 05:39 Chloride 110 mmol/L (101-111) 11/06/16 05:39 Carbon Dioxide 23 mmol/L (21-32) 11/06/16 05:39 Anion Gap 8.0 (6-13) 11/06/16 05:39 BUN 7 mg/dL (6-20) 11/06/16 05:39 Creatinine 0.7 mg/dL (0.4-1.0) 11/06/16 05:39 Estimated GFR (MDRD) 82 (>89) L 11/06/16 05:39 Glucose 104 mg/dL (70-100) H 11/06/16 05:39 Calcium 8.5 mg/dL (8.5-10.3) 11/06/16 05:39 Total Bilirubin 0.8 mg/dL (0.2-1.0) 11/05/16 15:25 AST 15 IU/L (10-42) 11/05/16 15:25 ALT 20 IU/L (10-60) 11/05/16 15:25 Alkaline Phosphatase 62 IU/L (42-121) 11/05/16 15:25 Total Protein 6.8 g/dL (6.7-8.2) 11/05/16 15:25 Albumin 3.8 g/dL (3.2-5.5) 11/05/16 15:25 Globulin 3.0 g/dL (2.1-4.2) 11/05/16 15:25 Albumin/Globulin Ratio 1.3 (1.0-2.2) 11/05/16 15:25 Lipase 21 U/L (22-51) L 11/05/16 15:25 Urine Color YELLOW 11/05/16 17:45 Urine Clarity CLEAR (CLEAR) 11/05/16 17:45 Urine pH 5.5 PH (5.0-7.5) 11/05/16 17:45 Ur Specific [place] 1.015 (1.002-1.030) 11/05/16 17:45 Urine Protein NEGATIVE mg/dL (NEGATIVE) 11/05/16 17:45 Urine Glucose (UA) NEGATIVE mg/dL (NEGATIVE) 11/05/16 17:45 Urine Ketones NEGATIVE mg/dL (NEGATIVE) 11/05/16 17:45 Urine Occult Blood TRACE-INTA (NEGATIVE) 11/05/16 17:45 Urine Nitrite NEGATIVE (NEGATIVE) 11/05/16 17:45 Urine Bilirubin NEGATIVE (NEGATIVE) 11/05/16 17:45 Urine Urobilinogen 0.2 (NORMAL) E.U./dL (NORMAL) 11/05/16 17:45 Ur Leukocyte Esterase NEGATIVE (NEGATIVE) 11/05/16 17:45 Ur Microscopic Review NOT INDICATED 11/05/16 17:45 Urine Culture Comments NOT INDICATED 11/05/16 17:45 - Procedures Procedures: Procedures EXCISION OF ASCENDING COLON, ENDO (06/08/15) EXCISION OF DUODENUM, ENDO, DIAGN (06/08/15) EXCISION OF LOWER ESOPHAGUS, ENDO, DIAGN (06/08/15) EXCISION OF STOMACH, ENDO (06/08/15)
[2016-11-08] MEDS: CLINDAMYCIN 150 MG CAPSULE PO SCH (19:05)
[2016-11-09] MEDS: AZTREONAM 2 GM in SODIUM CHLORIDE 0.9% MINIBAG 100 ML IV SCH ×3 (05:19→21:22)
[2016-11-09] MEDS: CLINDAMYCIN 150 MG CAPSULE PO SCH ×3 (05:19→21:22)
[2016-11-09] MEDS: CALCIUM CARBONATE CHEW 500 MG TABLET PO PRN (05:19)
[2016-11-09] MEDS: SODIUM CHLORIDE FLUSH 0.9% 10 ML SYRINGE IVP SCH ×3 (05:37→21:23)
[2016-11-09 06:36] LABS: BASOPHILS # (AUTO) 0.1 10^3/uL (0.0-0.1); EOSINOPHILS # (AUTO) 0.2 10^3/uL (0.0-0.7); EOSINOPHILS % (AUTO) 2.5 %; HCT - HEMATOCRIT 32.8 % (37.0-47.0); HGB - HEMOGLOBIN 11.3 g/dL (12.0-16.0); LYMPHOCYTES % (AUTO) 30.1 %; MEAN CORPUSCULAR HEMOGLOBIN 30.1 pg (27.0-31.0); MEAN CORPUSCULAR HGB CONC 34.5 g/dL (32.0-36.0); MEAN CORPUSCULAR VOLUME 87.3 fL (81.0-99.0); MONOCYTES # (AUTO) 0.5 10^3/uL (0.0-1.0); MONOCYTES % (AUTO) 7.3 %; NEUTROPHILS % (AUTO) 59.1 %; NUCLEATED RED BLOOD CELLS AUTO 0.1 /100WBC; RED BLOOD COUNT 3.76 10^6/uL (4.20-5.40); RED CELL DISTRIBUTION WIDTH 12.8 % (12.0-15.0); UNCORRECTED WHITE BLOOD COUNT 6.8 x10^3/uL; WHITE BLOOD COUNT 6.8 x10^3/uL (4.8-10.8)
[2016-11-09 06:55] LABS: CALCIUM 8.6 mg/dL (8.5-10.3); CREATININE 0.8 mg/dL (0.4-1.0)
[2016-11-09] MEDS: SACCHAROMYCES BOULARDII 250 MG CAPSULE PO SCH ×2 (07:45→16:16)
[2016-11-09] MEDS: LEVOTHYROXINE 100 MCG TABLET PO SCH (07:45)
[2016-11-09] MEDS: SODIUM CHLORIDE 0.9% 1,000 ML IV SCH (07:45)
[2016-11-09] MEDS: POLYETHYLENE GLYCOL 3350 17 GM PACKET PO SCH (07:46)
[2016-11-09] MEDS: FAMOTIDINE 20 MG TABLET PO SCH ×2 (09:08→21:23)
--- NOTE | 2016-11-09 10:24 | PROVIDER PROGRESS NOTE ---
Assessment/Plan - Problem List (1) Sigmoid diverticulitis Assessment/Plan: improving with less pain continue Clindamycin and Aztreonam tolerated diet diarrhea-- checked stool culture and C-diff; both are negative seen by general surgery-- discussed with Dr. Hairston; no surgery this time; recommend iv antibiotics and outpatient follow up with him; he also recommended Entapenem to replace Aztreonam since it can be given daily if ID is okay discussed with ID in [facility] Dr. Manjarrez on 11/08/16. She does not recommend Entapenem unless " you have to" due to resistant issue; and patient may have allergic reaction since entapenem has cross sensitivity to PCN and Cephalosporins. she recommends that we continue the current treatment for total 7 to 10 days. another option is bactrim DS bid with clindamycin if patient has no allergy to Sulfa changed clinda to oral after the discussion with patient; soft diet as tolerated. on added probiotic pt has more epigastric pain after taking clinda, no N/V; one time diarrhea over the night; continue to monitor; if developing more SE from oral clinda, may need iv (2) LLQ abdominal pain Assessment/Plan: due to above; improving (3) Hypokalemia due to loss of potassium Assessment/Plan: worse; getting K rider (4) Leukocytosis Assessment/Plan: resolving; likely due to diverticulitis (5) Hypothyroid Assessment/Plan: continue home medicine - Current Meds Current Meds: Current Medications Generic Name Dose Route Start Last Admin Trade Name Freq PRN Reason Stop Dose Admin Calcium Carbonate/Glycine 500 mg 11/09/16 04:54 11/09/16 05:19 Tums PO 500 mg QID PRN Administration INDIGESTION Clindamycin HCl 600 mg 11/08/16 20:00 11/09/16 05:19 Cleocin PO 600 mg Q8HR ADEBAYO Administration Famotidine 20 mg 11/09/16 09:00 11/09/16 09:08 Pepcid PO 20 mg BID ADEBAYO Administration Sodium Chloride 1,000 mls @ 100 mls/hr 11/05/16 21:00 11/09/16 07:45 Normal Saline 0.9% IV 100 mls/hr .Q10H ADEBAYO Administration Aztreonam 2 gm/ Sodium 100 mls @ 100 mls/hr 11/05/16 22:00 11/09/16 05:19 Chloride IV 100 mls/hr TID ADEBAYO Administration Levothyroxine Sodium 100 mcg 11/06/16 09:00 11/09/16 07:45 Synthroid PO 100 mcg DAILY ADEBAYO Administration Polyethylene Glycol 17 gm 11/06/16 09:00 11/09/16 07:46 Miralax PO Not Given DAILY ADEBAYO Saccharomyces Boulardii 250 mg 11/07/16 17:00 11/09/16 07:45 Florastor PO 250 mg BIDWM ADEBAYO Administration Sodium Chloride 10 ml 11/05/16 20:50 11/06/16 10:48 Normal Saline Flush 0.9% IVP 10 ml PRN PRN Administration NEEDED PER PROVIDER ORDERS Sodium Chloride 10 ml 11/05/16 22:00 11/09/16 05:37 Normal Saline Flush 0.9% IVP Not Given Q8HR ADEBAYO - Lab Result Fish Bone Diagrams: 11/09/16 06:06 11/09/16 06:06 - Additional Planning My Orders: My Active Orders 11/08/16 20:00 Clindamycin [Cleocin] 600 mg PO Q8HR 11/08/16 Dinner Soft (Low Fiber) Diet [DIET] 11/09/16 09:00 Famotidine [Pepcid] 20 mg PO BID Consult/Specialty: Surgery (discussed with surgery today) Plan Discussed with:: Patient, Spouse Subjective - Subjective Patient Reports: Feeling Better, Abdominal Pain, Diarrhea Nursing Reports: No Complaints Objective Vital Signs: Vital Signs - 24 hr 11/08/16 11/08/16 11/09/16 15:26 20:41 00:02 Temperature 36.9 C 37.2 C 36.7 C Heart Rate [ 59 L 63 66 Brachial] Respiratory 16 18 Rate Blood Pressure 106/60 [Left Brachial artery] Blood Pressure 159/69 H 133/75 H [Right Brachial artery] O2 Saturation 98 96 96 11/09/16 08:54 Temperature 36.9 C Heart Rate [ 72 Brachial] Respiratory 16 Rate Blood Pressure [Left Brachial artery] Blood Pressure 131/67 H [Right Brachial artery] O2 Saturation 97 Oxygen O2 Source Room air I&O (Last 24 Hrs): Intake and Output Totals x24h 11/07/16 11/08/16 11/09/16 23:59 23:59 23:59 Intake Total 3351 4346 1454 Output Total 650 Balance 4891 4346 1454 General: Alert, Oriented x3, Cooperative HEENT: Atraumatic, PERRLA, EOMI Neck: Supple Neuro: Non Focal Cardiovascular: Regular rate, Normal S1, Normal S2 Respiratory: Chest non-tender, No respiratory distress, Breath sounds nml Abdomen: Normal bowel sounds, Soft, No tenderness, Other (more blowed today, no guarding) Extremities: No clubbing, No cyanosis Skin: No rashes - Results Results: Laboratory Results WBC 6.8 x10^3/uL (4.8-10.8) 11/09/16 06:06 RBC 3.76 10^6/uL (4.20-5.40) L 11/09/16 06:06 Hgb 11.3 g/dL (12.0-16.0) L 11/09/16 06:06 Hct 32.8 % (37.0-47.0) L 11/09/16 06:06 MCV 87.3 fL (81.0-99.0) 11/09/16 06:06 MCH 30.1 pg (27.0-31.0) 11/09/16 06:06 MCHC 34.5 g/dL (32.0-36.0) 11/09/16 06:06 RDW 12.8 % (12.0-15.0) 11/09/16 06:06 Plt Count 219 10^3/uL (130-450) 11/09/16 06:06 MPV 9.0 fL (7.9-10.8) 11/09/16 06:06 Neut # 4.0 10^3/uL (1.5-6.6) 11/09/16 06:06 Lymph # 2.0 10^3/uL (1.5-3.5) 11/09/16 06:06 [place] # 0.5 10^3/uL (0.0-1.0) 11/09/16 06:06 Eos # 0.2 10^3/uL (0.0-0.7) 11/09/16 06:06 Baso # 0.1 10^3/uL (0.0-0.1) 11/09/16 06:06 Absolute Nucleated RBC 0.00 x10^3/uL 11/09/16 06:06 Nucleated RBCs 0.1 /100WBC 11/09/16 06:06 Sodium 143 mmol/L (135-145) 11/09/16 06:06 Potassium 3.0 mmol/L (3.5-5.0) L 11/09/16 06:06 Chloride 110 mmol/L (101-111) 11/09/16 06:06 Carbon Dioxide 25 mmol/L (21-32) 11/09/16 06:06 Anion Gap 8.0 (6-13) 11/09/16 06:06 BUN 6 mg/dL (6-20) 11/09/16 06:06 Creatinine 0.8 mg/dL (0.4-1.0) 11/09/16 06:06 Estimated GFR (MDRD) 70 (>89) L 11/09/16 06:06 Glucose 140 mg/dL (70-100) H 11/09/16 06:06 Calcium 8.6 mg/dL (8.5-10.3) 11/09/16 06:06 Total Bilirubin 0.8 mg/dL (0.2-1.0) 11/05/16 15:25 AST 15 IU/L (10-42) 11/05/16 15:25 ALT 20 IU/L (10-60) 11/05/16 15:25 Alkaline Phosphatase 62 IU/L (42-121) 11/05/16 15:25 Total Protein 6.8 g/dL (6.7-8.2) 11/05/16 15:25 Albumin 3.8 g/dL (3.2-5.5) 11/05/16 15:25 Globulin 3.0 g/dL (2.1-4.2) 11/05/16 15:25 Albumin/Globulin Ratio 1.3 (1.0-2.2) 11/05/16 15:25 Lipase 21 U/L (22-51) L 11/05/16 15:25 Urine Color YELLOW 11/05/16 17:45 Urine Clarity CLEAR (CLEAR) 11/05/16 17:45 Urine pH 5.5 PH (5.0-7.5) 11/05/16 17:45 Ur Specific [place] 1.015 (1.002-1.030) 11/05/16 17:45 Urine Protein NEGATIVE mg/dL (NEGATIVE) 11/05/16 17:45 Urine Glucose (UA) NEGATIVE mg/dL (NEGATIVE) 11/05/16 17:45 Urine Ketones NEGATIVE mg/dL (NEGATIVE) 11/05/16 17:45 Urine Occult Blood TRACE-INTA (NEGATIVE) 11/05/16 17:45 Urine Nitrite NEGATIVE (NEGATIVE) 11/05/16 17:45 Urine Bilirubin NEGATIVE (NEGATIVE) 11/05/16 17:45 Urine Urobilinogen 0.2 (NORMAL) E.U./dL (NORMAL) 11/05/16 17:45 Ur Leukocyte Esterase NEGATIVE (NEGATIVE) 11/05/16 17:45 Ur Microscopic Review NOT INDICATED 11/05/16 17:45 Urine Culture Comments NOT INDICATED 11/05/16 17:45 - Procedures Procedures: Procedures EXCISION OF ASCENDING COLON, ENDO (06/08/15) EXCISION OF DUODENUM, ENDO, DIAGN (06/08/15) EXCISION OF LOWER ESOPHAGUS, ENDO, DIAGN (06/08/15) EXCISION OF STOMACH, ENDO (06/08/15)
--- NOTE | 2016-11-09 10:40 | PROVIDER PROGRESS NOTE ---
Subjective - General Admit Date: 11/05/16 - Review of Systems Gastrointestinal: positive: Diarrhea, Other (minimal abdominal pain) Objective - Patient Data Vital Signs: Vital Signs x48h Temp Pulse Resp BP Pulse Ox 11/09/16 08:54 36.9 C 72 16 131/67 H 97 Intake & Output: Intake and Output Totals x24h 11/07/16 11/08/16 11/09/16 23:59 23:59 23:59 Intake Total 3351 4346 1454 Output Total 650 Balance 2701 4346 1454 - Lab Results Lab Results: 11/09/16 06:06 11/09/16 06:06 Other Lab Results: Lab Results x24hrs 11/09/16 11/09/16 Range/Units 06:06 06:06 WBC 6.8 (4.8-10.8) x10^3/uL RBC 3.76 L (4.20-5.40) 10^6/uL Hgb 11.3 L (12.0-16.0) g/dL Hct 32.8 L (37.0-47.0) % MCV 87.3 (81.0-99.0) fL MCH 30.1 (27.0-31.0) pg MCHC 34.5 (32.0-36.0) g/dL RDW 12.8 (12.0-15.0) % Plt Count 219 (130-450) 10^3/uL MPV 9.0 (7.9-10.8) fL Neut # 4.0 (1.5-6.6) 10^3/uL Lymph # 2.0 (1.5-3.5) 10^3/uL Rich # 0.5 (0.0-1.0) 10^3/uL Eos # 0.2 (0.0-0.7) 10^3/uL Baso # 0.1 (0.0-0.1) 10^3/uL Absolute Nucleated RBC 0.00 x10^3/uL Nucleated RBCs 0.1 /100WBC Sodium 143 (135-145) mmol/L Potassium 3.0 L (3.5-5.0) mmol/L Chloride 110 (101-111) mmol/L Carbon Dioxide 25 (21-32) mmol/L Anion Gap 8.0 (6-13) BUN 6 (6-20) mg/dL Creatinine 0.8 (0.4-1.0) mg/dL Estimated GFR (MDRD) 70 L (>89) Glucose 140 H (70-100) mg/dL Calcium 8.6 (8.5-10.3) mg/dL - Current Medications Current Medications: Current Medications Generic Name Dose Route Start Last Admin Trade Name Freq PRN Reason Stop Dose Admin Calcium Carbonate/Glycine 500 mg 11/09/16 04:54 11/09/16 05:19 Tums PO 500 mg QID PRN Administration INDIGESTION Clindamycin HCl 600 mg 11/08/16 20:00 11/09/16 05:19 Cleocin PO 600 mg Q8HR ADEBAYO Administration Famotidine 20 mg 11/09/16 09:00 11/09/16 09:08 Pepcid PO 20 mg BID ADEBAYO Administration Sodium Chloride 1,000 mls @ 100 mls/hr 11/05/16 21:00 11/09/16 07:45 Normal Saline 0.9% IV 100 mls/hr .Q10H ADEBAYO Administration Aztreonam 2 gm/ Sodium 100 mls @ 100 mls/hr 11/05/16 22:00 11/09/16 05:19 Chloride IV 100 mls/hr TID ADEBAYO Administration Levothyroxine Sodium 100 mcg 11/06/16 09:00 11/09/16 07:45 Synthroid PO 100 mcg DAILY ADEBAYO Administration Polyethylene Glycol 17 gm 11/06/16 09:00 11/09/16 07:46 Miralax PO Not Given DAILY ADEBAYO Saccharomyces Boulardii 250 mg 11/07/16 17:00 11/09/16 07:45 Florastor PO 250 mg BIDWM ADEBAYO Administration Sodium Chloride 10 ml 11/05/16 20:50 11/06/16 10:48 Normal Saline Flush 0.9% IVP 10 ml PRN PRN Administration NEEDED PER PROVIDER ORDERS Sodium Chloride 10 ml 11/05/16 22:00 11/09/16 05:37 Normal Saline Flush 0.9% IVP Not Given Q8HR ADEBAYO - Physical Exam Abdomen: positive: Non-tender Impression/Plan - Problem List Problem List: Recurrent diverticulitis. Improved on IV antibiotics awaiting setup for home iv antibiotics. Discussed surgery in about 2 months. Will have patient f/u in clinic after discharge. May resume diet.
[2016-11-09] MEDS: POTASSIUM CHLOR 10 MEQ/100 ML 100 ML IV SCH ×4 (11:38→14:57)
[2016-11-09] MEDS: ACETAMINOPHEN 325 MG TABLET PO PRN ×2 (21:22→23:49)
[2016-11-10] MEDS: AZTREONAM 2 GM in SODIUM CHLORIDE 0.9% MINIBAG 100 ML IV SCH ×3 (06:18→22:08)
[2016-11-10] MEDS: SODIUM CHLORIDE FLUSH 0.9% 10 ML SYRINGE IVP SCH ×3 (06:18→22:08)
[2016-11-10] MEDS: CLINDAMYCIN 150 MG CAPSULE PO SCH ×3 (06:18→22:08)
[2016-11-10] MEDS: FAMOTIDINE 20 MG TABLET PO SCH ×2 (08:19→22:07)
[2016-11-10] MEDS: SACCHAROMYCES BOULARDII 250 MG CAPSULE PO SCH ×2 (08:19→17:57)
[2016-11-10] MEDS: POLYETHYLENE GLYCOL 3350 17 GM PACKET PO SCH (08:19)
[2016-11-10] MEDS: LEVOTHYROXINE 100 MCG TABLET PO SCH (08:19)
--- NOTE | 2016-11-10 08:28 | PROVIDER PROGRESS NOTE ---
Assessment/Plan - Problem List (1) Sigmoid diverticulitis Assessment/Plan: improving with less pain continue Clindamycin and Aztreonam tolerated diet diarrhea-- checked stool culture and C-diff; both are negative seen by general surgery-- discussed with Dr. Hairston; no surgery this time; recommend iv antibiotics and outpatient follow up with him; he also recommended Entapenem to replace Aztreonam since it can be given daily if ID is okay discussed with ID in [facility] Dr. Manjarrez on 11/08/16. She does not recommend Entapenem unless " you have to" due to resistant issue; and patient may have allergic reaction since entapenem has cross sensitivity to PCN and Cephalosporins. she recommends that we continue the current treatment for total 7 to 10 days. another option is bactrim DS bid with clindamycin if patient has no allergy to Sulfa changed clinda to oral after the discussion with patient; soft diet as tolerated. on added probiotic pt had more epigastric pain after taking clinda, no N/V; one time diarrhea over the night; continue to monitor; if developing more SE from oral clinda, may need iv so far tolerating regiment; no frequent diarrhea; no abdominal pain likely home in am (2) Hypertension Assessment/Plan: elevated BP noted since yesterday will monitor; could be situational. (3) LLQ abdominal pain Assessment/Plan: see #1 (4) Hypokalemia due to loss of potassium Assessment/Plan: see #1 (5) Leukocytosis Assessment/Plan: see #1 (6) Hypothyroid Assessment/Plan: see #1 (7) Diarrhea Assessment/Plan: see #1 - Current Meds Current Meds: Current Medications Generic Name Dose Route Start Last Admin Trade Name Freq PRN Reason Stop Dose Admin Acetaminophen 650 mg 11/06/16 14:30 11/09/16 23:49 Tylenol PO 325 mg Q6HR PRN Administration Pain or Fever > 38C (100.4F) Calcium Carbonate/Glycine 500 mg 11/09/16 04:54 11/09/16 05:19 Tums PO 500 mg QID PRN Administration INDIGESTION Clindamycin HCl 600 mg 11/08/16 20:00 11/10/16 06:18 Cleocin PO 600 mg Q8HR ADEBAYO Administration Famotidine 20 mg 11/09/16 09:00 11/10/16 08:19 Pepcid PO 20 mg BID ADEBAYO Administration Aztreonam 2 gm/ Sodium 100 mls @ 100 mls/hr 11/05/16 22:00 11/10/16 06:18 Chloride IV 100 mls/hr TID ADEBAYO Administration Levothyroxine Sodium 100 mcg 11/06/16 09:00 11/10/16 08:19 Synthroid PO 100 mcg DAILY ADEBAYO Administration Polyethylene Glycol 17 gm 11/06/16 09:00 11/10/16 08:19 Miralax PO Not Given DAILY ADEBAYO Saccharomyces Boulardii 250 mg 11/07/16 17:00 11/10/16 08:19 Florastor PO 250 mg BIDWM ADEBAYO Administration Sodium Chloride 10 ml 11/05/16 20:50 11/06/16 10:48 Normal Saline Flush 0.9% IVP 10 ml PRN PRN Administration NEEDED PER PROVIDER ORDERS Sodium Chloride 10 ml 11/05/16 22:00 11/10/16 06:18 Normal Saline Flush 0.9% IVP 10 ml Q8HR ADEBAYO Administration - Lab Result Fish Bone Diagrams: 11/09/16 06:06 11/09/16 06:06 - Additional Planning Condition/Complexity: Improved My Orders: My Active Orders 11/09/16 09:00 Famotidine [Pepcid] 20 mg PO BID Time Spent: 15-30 minutes (discussed the plan with patient; questions and concerns were answered.) Subjective - Subjective Patient Reports: Feeling Better, Other (my blood pressure high after the potassium) Nursing Reports: No Complaints Objective Vital Signs: Vital Signs - 24 hr 11/09/16 11/09/16 11/09/16 08:54 16:12 23:37 Temperature 36.9 C 36.6 C 36.7 C Heart Rate [ 72 62 67 Brachial] Respiratory 16 18 16 Rate Blood Pressure 131/67 H 148/86 H 151/73 H [Right Brachial artery] O2 Saturation 97 98 97 11/10/16 08:07 Temperature 36.6 C Heart Rate [ 70 Brachial] Respiratory 16 Rate Blood Pressure 147/86 H [Right Brachial artery] O2 Saturation 96 Oxygen O2 Source Room air I&O (Last 24 Hrs): Intake and Output Totals x24h 11/08/16 11/09/16 11/10/16 23:59 23:59 23:59 Intake Total 4346 3813 150 Balance 4346 3813 150 General: Alert, Oriented x3, Cooperative HEENT: Atraumatic, PERRLA Neck: Supple Neuro: Non Focal Cardiovascular: Regular rate, Normal S1, Normal S2 Respiratory: No respiratory distress Abdomen: Normal bowel sounds, Soft, No tenderness Extremities: No clubbing, No cyanosis Skin: No rashes - Results Results: Laboratory Results WBC 6.8 x10^3/uL (4.8-10.8) 11/09/16 06:06 RBC 3.76 10^6/uL (4.20-5.40) L 11/09/16 06:06 Hgb 11.3 g/dL (12.0-16.0) L 11/09/16 06:06 Hct 32.8 % (37.0-47.0) L 11/09/16 06:06 MCV 87.3 fL (81.0-99.0) 11/09/16 06:06 MCH 30.1 pg (27.0-31.0) 11/09/16 06:06 MCHC 34.5 g/dL (32.0-36.0) 11/09/16 06:06 RDW 12.8 % (12.0-15.0) 11/09/16 06:06 Plt Count 219 10^3/uL (130-450) 11/09/16 06:06 MPV 9.0 fL (7.9-10.8) 11/09/16 06:06 Neut # 4.0 10^3/uL (1.5-6.6) 11/09/16 06:06 Lymph # 2.0 10^3/uL (1.5-3.5) 11/09/16 06:06 [place] # 0.5 10^3/uL (0.0-1.0) 11/09/16 06:06 Eos # 0.2 10^3/uL (0.0-0.7) 11/09/16 06:06 Baso # 0.1 10^3/uL (0.0-0.1) 11/09/16 06:06 Absolute Nucleated RBC 0.00 x10^3/uL 11/09/16 06:06 Nucleated RBCs 0.1 /100WBC 11/09/16 06:06 Sodium 143 mmol/L (135-145) 11/09/16 06:06 Potassium 3.0 mmol/L (3.5-5.0) L 11/09/16 06:06 Chloride 110 mmol/L (101-111) 11/09/16 06:06 Carbon Dioxide 25 mmol/L (21-32) 11/09/16 06:06 Anion Gap 8.0 (6-13) 11/09/16 06:06 BUN 6 mg/dL (6-20) 11/09/16 06:06 Creatinine 0.8 mg/dL (0.4-1.0) 11/09/16 06:06 Estimated GFR (MDRD) 70 (>89) L 11/09/16 06:06 Glucose 140 mg/dL (70-100) H 11/09/16 06:06 Calcium 8.6 mg/dL (8.5-10.3) 11/09/16 06:06 Total Bilirubin 0.8 mg/dL (0.2-1.0) 11/05/16 15:25 AST 15 IU/L (10-42) 11/05/16 15:25 ALT 20 IU/L (10-60) 11/05/16 15:25 Alkaline Phosphatase 62 IU/L (42-121) 11/05/16 15:25 Total Protein 6.8 g/dL (6.7-8.2) 11/05/16 15:25 Albumin 3.8 g/dL (3.2-5.5) 11/05/16 15:25 Globulin 3.0 g/dL (2.1-4.2) 11/05/16 15:25 Albumin/Globulin Ratio 1.3 (1.0-2.2) 11/05/16 15:25 Lipase 21 U/L (22-51) L 11/05/16 15:25 Urine Color YELLOW 11/05/16 17:45 Urine Clarity CLEAR (CLEAR) 11/05/16 17:45 Urine pH 5.5 PH (5.0-7.5) 11/05/16 17:45 Ur Specific [place] 1.015 (1.002-1.030) 11/05/16 17:45 Urine Protein NEGATIVE mg/dL (NEGATIVE) 11/05/16 17:45 Urine Glucose (UA) NEGATIVE mg/dL (NEGATIVE) 08/08/17 17:45 Urine Ketones NEGATIVE mg/dL (NEGATIVE) 11/05/16 17:45 Urine Occult Blood TRACE-INTA (NEGATIVE) 11/05/16 17:45 Urine Nitrite NEGATIVE (NEGATIVE) 11/05/16 17:45 Urine Bilirubin NEGATIVE (NEGATIVE) 11/05/16 17:45 Urine Urobilinogen 0.2 (NORMAL) E.U./dL (NORMAL) 11/05/16 17:45 Ur Leukocyte Esterase NEGATIVE (NEGATIVE) 11/05/16 17:45 Ur Microscopic Review NOT INDICATED 11/05/16 17:45 Urine Culture Comments NOT INDICATED 11/05/16 17:45 - Procedures Procedures: Procedures EXCISION OF ASCENDING COLON, ENDO (06/08/15) EXCISION OF DUODENUM, ENDO, DIAGN (06/08/15) EXCISION OF LOWER ESOPHAGUS, ENDO, DIAGN (06/08/15) EXCISION OF STOMACH, ENDO (06/08/15)
[2016-11-10] MEDS: CALCIUM CARBONATE CHEW 500 MG TABLET PO PRN (17:55)
[2016-11-10] MEDS: ACETAMINOPHEN 325 MG TABLET PO PRN ×2 (19:46→22:07)
--- NOTE | 2016-11-11 03:39 | PROVIDER PROGRESS NOTE ---
Subjective - General Admit Date: 11/05/16 - Review of Systems Gastrointestinal: positive: Diarrhea, Other (minimal abdominal pain) Objective - Patient Data Vital Signs: Vital Signs x48h Temp Pulse Resp BP Pulse Ox 11/11/16 01:50 37.2 C 86 16 142/68 H 96 Intake & Output: Intake and Output Totals x24h 11/09/16 11/10/16 11/11/16 23:59 23:59 23:59 Intake Total 3813 2191 Balance 3813 2191 - Lab Results Lab Results: 11/09/16 06:06 11/09/16 06:06 - Current Medications Current Medications: Current Medications Generic Name Dose Route Start Last Admin Trade Name Freq PRN Reason Stop Dose Admin Acetaminophen 650 mg 11/06/16 14:30 11/10/16 22:07 Tylenol PO 325 mg Q6HR PRN Administration Pain or Fever > 38C (100.4F) Calcium Carbonate/Glycine 500 mg 11/09/16 04:54 11/10/16 17:55 Tums PO 500 mg QID PRN Administration INDIGESTION Clindamycin HCl 600 mg 11/08/16 20:00 11/10/16 22:08 Cleocin PO 600 mg Q8HR ADEBAYO Administration Famotidine 20 mg 11/09/16 09:00 11/10/16 22:07 Pepcid PO 20 mg BID ADEBAYO Administration Aztreonam 2 gm/ Sodium 100 mls @ 100 mls/hr 11/05/16 22:00 11/10/16 22:08 Chloride IV 100 mls/hr TID ADEBAYO Administration Levothyroxine Sodium 100 mcg 11/06/16 09:00 11/10/16 08:19 Synthroid PO 100 mcg DAILY ADEBAYO Administration Polyethylene Glycol 17 gm 11/06/16 09:00 11/10/16 08:19 Miralax PO Not Given DAILY ADEBAYO Saccharomyces Boulardii 250 mg 11/07/16 17:00 11/10/16 17:57 Florastor PO 250 mg BIDWM ADEBAYO Administration Sodium Chloride 10 ml 11/05/16 20:50 11/06/16 10:48 Normal Saline Flush 0.9% IVP 10 ml PRN PRN Administration NEEDED PER PROVIDER ORDERS Sodium Chloride 10 ml 11/05/16 22:00 11/10/16 22:08 Normal Saline Flush 0.9% IVP 10 ml Q8HR ADEBAYO Administration - Physical Exam Abdomen: positive: Non-tender Impression/Plan - Problem List Problem List: Recurrent diverticulitis. PCN allergy which limits IV antibiotic choice. Improving on clinda/azactam. Will go home on IV antibiotics. Discussed need for left colon resection within the next 2 months.
[2016-11-11 05:35] LABS: POTASSIUM 3.4 mmol/L (3.5-5.0)
[2016-11-11] MEDS: CLINDAMYCIN 150 MG CAPSULE PO SCH (06:43)
[2016-11-11] MEDS: AZTREONAM 2 GM in SODIUM CHLORIDE 0.9% MINIBAG 100 ML IV SCH (06:43)
[2016-11-11] MEDS: SODIUM CHLORIDE FLUSH 0.9% 10 ML SYRINGE IVP PRN (06:43)
[2016-11-11] MEDS: CALCIUM CARBONATE CHEW 500 MG TABLET PO PRN (06:49)
[2016-11-11] MEDS: SODIUM CHLORIDE FLUSH 0.9% 10 ML SYRINGE IVP SCH ×2 (06:55→08:26)
[2016-11-11 08:03] VITALS: BP 148/74
[2016-11-11] MEDS: SACCHAROMYCES BOULARDII 250 MG CAPSULE PO SCH (08:20)
[2016-11-11] MEDS: LEVOTHYROXINE 100 MCG TABLET PO SCH (08:20)
[2016-11-11] MEDS: FAMOTIDINE 20 MG TABLET PO SCH (08:20)
--- NOTE | 2016-11-11 08:59 | Discharge Plan ---
Discharge Plan Disposition: Home, Self Care Condition: Good Prescriptions: Acetaminophen [Tylenol] 650 mg PO Q6HR PRN #30 tablet PRN Reason: Pain Or Fever > 38c (100.4f) Clindamycin [Cleocin] 600 mg PO Q8HR #15 capsule Saccharomyces Boulardii [Florastor] 250 mg PO BID #60 capsule Polyethylene Glycol 3350 [Miralax] 17 gm PO DAILY #20 packet Famotidine [Pepcid] 20 mg PO BID #20 tablet Calcium Carbonate [Tums (Calcium Carbonate 500mg)] 500 mg PO QID PRN #30 tablet PRN Reason: Indigestion Diet: Soft Activity Restrictions: No Restrictions Additional Instructions or Follow Up instructions: see your PCP this week; monitor your condition see Dr Hairston in a week If you feel very sick, such as fever, chill, nausea, vomiting, chest pain or pressure, short of breath, contact your doctor right away or call 911 Exercise 30 minutes daily at least as you can tolerate Follow up with your PCP, specialist(s) as instructed. Monitor your blood pressure at home 1 to 2 times a day; show the results to your doctor(s). It will help your doctor decide if you really have high blood pressure or not infusion company will deliver the Aztreonam to your home; three times a day for 5 days. iv site care as instructed by staff No Smoking: If you smoke, Please STOP! Call for help.
--- NOTE | 2016-11-11 09:06 | DISCHARGE SUMMARY ---
Discharge Summary Admit Date: 11/05/16 Discharge Date: 11/11/16 Discharging Provider: ALESSIA Banuelos Primary Care Provider: Wilma Sharma MD Code Status: Attempt Resuscitation Condition at Discharge: Good Discharge Disposition: 01 Home, Self Care - DIAGNOSES Admission Diagnoses: sigmoid diverticulitis hypokalemia LLQ abdominal pain Discharge Diagnoses with Status of Each Condition: Sigmoid diverticulitis: improving; on oral clindamycin and iv Aztreonam for 5 more days; outpatient f/u with PCP and surgery team Hypertension: no medication given; could be situational; outpatient monitor LLQ abdominal pain-- resolving; 2/2 diverticulitis Hypokalemia due to loss of potassium; improving Leukocytosis-- resolved Hypothyroid: stable Diarrhea-- resolving; stool study negative - HPI History of Present Illness: this 66 year old lady with history of diverticulitis came to ED with LLQ abdominal pain. she stated that this was so far the worst episode she had ever had. in ED, her CT scan confirmed the recurrent diverticulitis. she was admitted then for further treatment. patient has had multiple allergies to antibiotics, which limited treatment options. ID consult line at the : spoke to Dr. Infante. combination of clindamycin and aztreonam recommended. - CONSULTS | PROCEDURES Consultations: surgery and phone consult to ID in Procedures: none - HOSPITAL COURSE Hospital Course: patient was treated with Clindamycin and Aztreonam iv; she was seen by general surgery, who recommended conservative management with antibiotics for now, outpatient follow up for possible surgery in the near future. Dr. Hairston also recommended Entapenem to replace Aztreonam since it can be given daily if ID is okay; the case was discussed with ID in [facility] Dr. Manjarrez on 11/08/16. She does not recommend Entapenem unless " you have to" due to resistant issue; and patient may have allergic reaction since entapenem has cross sensitivity to PCN and Cephalosporins. she recommends that we continue the current treatment for total 7 to 10 days. another option is bactrim DS bid with clindamycin, unfortunately, patient is also allergic to Sulfa in preparation of discharging patient to home, clindamycin was changed to oral; probiotic was added. patient had had more epigastric pain after taking clinda orally, but controlled with snacks and PRN TUMs; Pepcid was added for extra GI protection. so far, patient has tolerated the antibiotic regiment; she has no fever, chills , nausea, vomit, abdominal pain, diarrhea. she feels more comfortable to go home and get iv antibiotic treatment at home. discharge plan was discussed. since admission, her BP is mildly elevated comparing to her baseline. she is advised to monitor it at home. - ALLERGIES Allergies/Adverse Reactions: Allergies Allergy/AdvReac Type Severity Reaction Status Date / Time metronidazole [From Flagyl] Allergy Severe Unknown Verified 11/05/16 14:33 Metronidazole HCl * Allergy Mild Unknown Verified 11/05/16 14:33 [From Flagyl] acetaminophen [From Vicodin] Allergy Unknown Verified 11/05/16 14:33 cephalexin monohydrate * Allergy Unknown Verified 11/05/16 14:33 [From Keflex] codeine Allergy Respiratory Verified 11/05/16 14:33 hydrocodone bitartrate * Allergy Unknown Verified 11/05/16 14:33 [From Vicodin] meperidine HCl * Allergy Hives Verified 11/05/16 14:33 [From Demerol] moxifloxacin HCl * Allergy Unknown Verified 11/05/16 14:33 [From Avelox] naproxen [From Naprosyn] Allergy Hives Verified 11/05/16 14:33 Penicillins Allergy Unknown Verified 11/05/16 14:33 ciprofloxacin AdvReac Mild vomiting Verified 11/05/16 14:33 - MEDICATIONS Home Medications: Ambulatory Orders Medication Instructions Recorded Confirmed Levothyroxine Sodium [Tirosint] 100 mcg PO DAILY 06/08/13 11/05/16 Acetaminophen [Tylenol] 650 mg PO Q6HR PRN #30 tablet 11/11/16 Calcium Carbonate [Tums (Calcium 500 mg PO QID PRN #30 tablet 11/11/16 Carbonate 500mg)] Clindamycin [Cleocin] 600 mg PO Q8HR #15 capsule 11/11/16 Famotidine [Pepcid] 20 mg PO BID #20 tablet 11/11/16 Polyethylene Glycol 3350 [Miralax] 17 gm PO DAILY #20 packet 11/11/16 Saccharomyces Boulardii [Florastor] 250 mg PO BID #60 capsule 11/11/16 Home Medications Other | Comments: Aztreonam iv 2g every 8 hours x 5 days ( prescription was given to [facility]) - PHYSICAL EXAM AT DISCHARGE General Appearance: positive: No acute distress, Alert Eyes Bilateral: positive: Normal inspection, PERRL Neck: positive: Nml inspection Respiratory: positive: Chest non-tender, No respiratory distress, Breath sounds nml Cardiovascular: positive: Regular rate & rhythm, No murmur, No gallop Abdomen: positive: Non-tender, Nml bowel sounds, No distention Back: positive: Nml inspection Skin: positive: Color nml, No rash Extremities: positive: Non-tender, Full ROM Neurologic/Psychiatric: positive: Oriented x3 - LABS Result Diagrams: 11/09/16 06:06 11/11/16 05:07 - DIAGNOSTIC IMAGING Diagnostic Imaging Results: Final report reviewed Diagnostic Imaging Results Comments: CT of abdomen 11/05/16-- marked mid and distal sigmoid diverticulitis without obstruction or abscess formation at this time - FOLLOW UP Follow Up: PCP within a week general surgery in a week - TIME SPENT Time Spent in Discharge (Minutes): 36
[2016-11-11] MEDS: POLYETHYLENE GLYCOL 3350 17 GM PACKET PO SCH (10:27)
== END 2016-11-11 10:30 | disposition home or self-care (01) | DRG 392 ==
LOC: ED 13:59 → MS2 20:50
PROVIDERS: ADMIT Specialist; ATTEND Nurse Practitioner
DX: K57.32 Diverticulitis of large intestine without perforation or abscess without bleeding (principal); E87.6 Hypokalemia; I10 Essential (primary) hypertension; E03.9 Hypothyroidism, unspecified; K21.9 Gastro-esophageal reflux disease without esophagitis; Z88.1 Allergy status to other antibiotic agents; Z88.0 Allergy status to penicillin; Z86.010 Personal history of colon polyps; Z87.19 Personal history of other diseases of the digestive system; Z90.49 Acquired absence of other specified parts of digestive tract; Z86.19 Personal history of other infectious and parasitic diseases; Z87.891 Personal history of nicotine dependence
CPT/HCPCS: 36415; 74176; 80048; 80051; 80053; 81001; 81003; 83690; 85025; 87045; 87046; 87086; 87493; 96361; 96374; 96375; 99283; 99284

== ENCOUNTER 2016-11-12 07:09 | Emergency (ER) | payer MEDICARE ==
[2016-11-12 07:19] VITALS: BP 148/98
[2016-11-12] MEDS ORDERED: SODIUM CHLORIDE FLUSH 0.9% 10 ML SYRINGE IVP ONE (07:36)
--- NOTE | 2016-11-12 08:09 | ED Physician Documentation ---
History of Present Illness - Stated complaint Stated Complaint: LEFT ARM PX - Chief complaint Chief Complaint: General - History obtained from History obtained from: Patient, Family - History of Present Illness Timing: Today - Additonal information Additional information: 76-year-old female recently admitted for acute diverticulitis has a 5 day regimen of IV antibiotics to finish as an outpatient and she presents this morning with a IV site in the left antecubital that is infiltrated. 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: Other : None HEENT: Chronic hearing loss Psych: Anxiety (with recent diagnosis of husbands prostate cancer) Musculoskeletal: None Derm: Herpes zoster - Past Surgical History Past Surgical History: Yes General: Cholecystectomy, Appendectomy, Colonoscopy, EGD, 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: Tubal 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, Other HEENT: Tonsil/Adenoidectomy - Present Medications Home Medications: Ambulatory Orders Medication Instructions Recorded Confirmed Levothyroxine Sodium [Tirosint] 100 mcg PO DAILY 06/08/13 11/05/16 Acetaminophen [Tylenol] 650 mg PO Q6HR PRN #30 tablet 11/11/16 Calcium Carbonate [Tums (Calcium 500 mg PO QID PRN #30 tablet 11/11/16 Carbonate 500mg)] Clindamycin [Cleocin] 600 mg PO Q8HR #15 capsule 11/11/16 Famotidine [Pepcid] 20 mg PO BID #20 tablet 11/11/16 Polyethylene Glycol 3350 [Miralax] 17 gm PO DAILY #20 packet 11/11/16 Saccharomyces Boulardii [Florastor] 250 mg PO BID #60 capsule 11/11/16 - Allergies Allergies/Adverse Reactions: Allergies Allergy/AdvReac Type Severity Reaction Status Date / Time metronidazole [From Flagyl] Allergy Severe Unknown Verified 11/05/16 14:33 Metronidazole HCl * Allergy Mild Unknown Verified 11/05/16 14:33 [From Flagyl] acetaminophen [From Vicodin] Allergy Unknown Verified 11/05/16 14:33 cephalexin monohydrate * Allergy Unknown Verified 11/05/16 14:33 [From Keflex] codeine Allergy Respiratory Verified 11/05/16 14:33 hydrocodone bitartrate * Allergy Unknown Verified 11/05/16 14:33 [From Vicodin] meperidine HCl * Allergy Hives Verified 11/05/16 14:33 [From Demerol] moxifloxacin HCl * Allergy Unknown Verified 11/05/16 14:33 [From Avelox] naproxen [From Naprosyn] Allergy Hives Verified 11/05/16 14:33 Penicillins Allergy Unknown Verified 11/05/16 14:33 ciprofloxacin AdvReac Mild vomiting Verified 11/05/16 14:33 - Social History Does the pt smoke?: No Smoking Status: Former smoker Does the pt drink ETOH?: Yes Does the pt have substance abuse?: No - Immunizations Immunizations are current?: Yes - POLST Patient has POLST: No POLST Status: DNR (While she would like all measures to save her life such as emergency surgery, intubation for pneumonia and respiratory failure, blood transfusion products, antibiotics, ICU care, she does not want to be resuscitated in the event of a cardiopulmonary arrest that occurs after all the above been done) PD ED PE NORMAL - Vitals Vital signs reviewed: Yes (hypertensive) - General General: Alert and oriented X 3, No acute distress, Well developed/nourished - HEENT HEENT: Atraumatic, PERRL - Respiratory Respiratory: No respiratory distress - Derm Derm: Normal color, Warm and dry, No rash - Extremities Extremities: No deformity, Other (There is a left antecubital IV in place with mild surrounding swelling and tenerness. ) - Neuro Neuro: No motor deficit, No sensory deficit - Psych Psych: Normal mood, Normal affect Results - Vitals Vitals: Vital Signs - 24 hr 11/12/16 07:18 Temperature 36.8 C Heart Rate 80 Respiratory 16 Rate Blood Pressure 148/98 H O2 Saturation 97 Oxygen O2 Source Room air PD MEDICAL DECISION MAKING - ED course Complexity details: considered differential, d/w patient, d/w family ED course: 76-year-old female on outpatient IV antibiotic therapy has a failed IV site and a new IV site is placed. Departure - Departure Disposition: 01 Home, Self Care Clinical Impression: IV infiltration Qualifiers: Encounter type: initial encounter Qualified Code(s): T80.1XXA - Vascular complications following infusion, transfusion and therapeutic injection, initial encounter Condition: Stable Instructions: IV Care Using IV Abx Follow-Up: Wilma Sharma MD [Primary Care Provider] - Discharge Date/Time: 11/12/16 08:16
== END 2016-11-12 08:16 | disposition home or self-care (01) ==
LOC: ED 07:09
DX: T80.1XXA Vascular complications following infusion, transfusion and therapeutic injection, initial encounter (principal); E78.00 Pure hypercholesterolemia, unspecified; E03.9 Hypothyroidism, unspecified; Z87.891 Personal history of nicotine dependence
CPT/HCPCS: 99282; 99283

== ENCOUNTER 2017-02-13 10:29 | Outpatient (CLI) | payer MEDICARE ==
[2017-02-13 10:58] LABS: BASOPHILS # (AUTO) 0.1 10^3/uL (0.0-0.1); BASOPHILS % (AUTO) 1.6 %; EOSINOPHILS % (AUTO) 0.6 %; HCT - HEMATOCRIT 41.4 % (37.0-47.0); HGB - HEMOGLOBIN 14.2 g/dL (12.0-16.0); LYMPHOCYTES # (AUTO) 2.3 10^3/uL (1.5-3.5); LYMPHOCYTES % (AUTO) 31.9 %; MEAN CORPUSCULAR HEMOGLOBIN 29.8 pg (27.0-31.0); MEAN CORPUSCULAR HGB CONC 34.3 g/dL (32.0-36.0); MEAN CORPUSCULAR VOLUME 87.1 fL (81.0-99.0); MEAN PLATELET VOLUME 8.6 fL (7.9-10.8); MONOCYTES # (AUTO) 0.4 10^3/uL (0.0-1.0); MONOCYTES % (AUTO) 5.3 %; NEUTROPHILS # (AUTO) 4.3 10^3/uL (1.5-6.6); NEUTROPHILS % (AUTO) 60.6 %; NUCLEATED RED BLOOD CELLS AUTO 0.1 /100WBC; RED BLOOD COUNT 4.76 10^6/uL (4.20-5.40); RED CELL DISTRIBUTION WIDTH 12.6 % (12.0-15.0); UNCORRECTED WHITE BLOOD COUNT 7.1 x10^3/uL; WHITE BLOOD COUNT 7.1 x10^3/uL (4.8-10.8)
[2017-02-13 11:12] LABS: CALCIUM 9.6 mg/dL (8.5-10.3); CREATININE 0.9 mg/dL (0.4-1.0); POTASSIUM 3.5 mmol/L (3.5-5.0)
== END 2017-02-13 10:30 | disposition home or self-care (01) ==
LOC: LAB 10:29
PROVIDERS: ATTEND Nurse Anesthetist, Certified Registered
DX: Z01.812 Encounter for preprocedural laboratory examination (principal); E03.9 Hypothyroidism, unspecified; K57.92 Diverticulitis of intestine, part unspecified, without perforation or abscess without bleeding
CPT/HCPCS: 36415; 80048; 84443; 85025; 86850; 86900; 86901

== ENCOUNTER 2017-02-14 06:04 | Inpatient (IN) | payer MEDICARE ==
[2017-02-14] MEDS ORDERED: LACTATED RINGERS 1,000 ML IV ONE ×4 (06:35→14:00)
[2017-02-14] MEDS ORDERED: ERTAPENEM 1 GM VIAL ONE (06:36)
[2017-02-14] MEDS ORDERED: BUPIVACAINE 0.5%-EPI 1:200000 PF 10 ML VIAL SUBQ ONE (08:14)
[2017-02-14] MEDS ORDERED: ePHEDrine 50 MG/ML AMP IVP ONE (09:00)
[2017-02-14] MEDS ORDERED: ONDANSETRON 4 MG/2 ML VIAL IVP ONE (09:00)
[2017-02-14] MEDS ORDERED: fentaNYL 100 MCG/2 ML VIAL IVP ONE (09:00)
[2017-02-14] MEDS ORDERED: ROCURONIUM 50 MG/5 ML VIAL IVP ONE (09:00)
[2017-02-14] MEDS ORDERED: PROPOFOL 200 MG/20 ML VIAL IVP ONE (09:00)
[2017-02-14] MEDS ORDERED: LIDOCAINE-MPF 0.5% 50 ML VIAL IM ONE (11:54)
[2017-02-14] MEDS ORDERED: HYDROmorphone 1 MG/ML SYRINGE ONE (12:49)
[2017-02-14] MEDS ORDERED: fentaNYL 100 MCG/2 ML VIAL ONE (12:49)
[2017-02-14] MEDS ORDERED: ONDANSETRON 4 MG/2 ML VIAL ONE (12:49)
[2017-02-14] MEDS ORDERED: SODIUM CHLORIDE FLUSH 0.9% 10 ML SYRINGE IVP PRN (12:54)
[2017-02-14] MEDS ORDERED: ONDANSETRON 4 MG/2 ML VIAL IVP PRN (12:59)
[2017-02-14] MEDS ORDERED: D5NS W/20 MEQ KCL 1,000 ML IV SCH (13:00)
[2017-02-14] MEDS ORDERED: MORPHINE 2 MG/ML CARPUJECT ONE (13:18)
[2017-02-14] MEDS ORDERED: ACETAMINOPHEN 1,000 MG/100 ML 100 ML IV ONE (13:19)
[2017-02-14] MEDS ORDERED: KETOROLAC 15 MG/ML VIAL ONE (13:19)
[2017-02-14] MEDS ORDERED: METOCLOPRAMIDE 10 MG/2 ML VIAL ONE (13:51)
[2017-02-14] MEDS ORDERED: PROMETHAZINE 25 MG/1 ML VIAL ONE (14:01)
[2017-02-14] MEDS: SODIUM CHLORIDE FLUSH 0.9% 10 ML SYRINGE IVP SCH ×2 (15:47→21:28)
[2017-02-14] MEDS: KETOROLAC 15 MG/ML VIAL IVP PRN (16:31)
[2017-02-14] MEDS: ACETAMINOPHEN 1,000 MG/100 ML 100 ML IV SCH ×2 (16:36→23:30)
[2017-02-14] MEDS: D5NS W/20 MEQ KCL 1,000 ML IV SCH (16:55)
[2017-02-14] MEDS: HYDROmorphone PCA 10 MG IV PRN (17:00)
[2017-02-14 20:50] LABS: HCT - HEMATOCRIT 34.3 % (37.0-47.0); HGB - HEMOGLOBIN 11.3 g/dL (12.0-16.0)
[2017-02-14] MEDS: FAMOTIDINE 20 MG/50 ML 50 ML IV SCH (21:28)
[2017-02-14 21:43] LABS: MAGNESIUM 1.8 mg/dL (1.7-2.8); PHOSPHORUS 3.8 mg/dL (2.5-4.6)
[2017-02-14 21:44] LABS: ALBUMIN/GLOBULIN RATIO 1.3 (1.0-2.2); BILIRUBIN,TOTAL 0.5 mg/dL (0.2-1.0); BUN - BLOOD UREA NITROGEN 8 mg/dL (6-20); CARBON DIOXIDE - CO2 24 mmol/L (21-32); CHLORIDE 101 mmol/L (101-111); CREATININE 0.7 mg/dL (0.4-1.0); GFR - MDRD 82 (>89); GLUCOSE 141 mg/dL (70-100); POTASSIUM 3.6 mmol/L (3.5-5.0); SODIUM 135 mmol/L (135-145); TOTAL PROTEIN 5.4 g/dL (6.7-8.2)
[2017-02-14 21:50] LABS: CALCIUM, IONIZED 1.05 mmol/L (1.15-1.33); VBG PH 7.458 (7.31-7.41)
[2017-02-15 05:09] LABS: BASOPHILS % (AUTO) 0.5 %; EOSINOPHILS % (AUTO) 0.4 %; HCT - HEMATOCRIT 33.3 % (37.0-47.0); HGB - HEMOGLOBIN 11.2 g/dL (12.0-16.0); LYMPHOCYTES # (AUTO) 1.8 10^3/uL (1.5-3.5); LYMPHOCYTES % (AUTO) 20.3 %; MEAN CORPUSCULAR HEMOGLOBIN 30.1 pg (27.0-31.0); MEAN CORPUSCULAR HGB CONC 33.5 g/dL (32.0-36.0); MEAN CORPUSCULAR VOLUME 89.6 fL (81.0-99.0); MEAN PLATELET VOLUME 8.7 fL (7.9-10.8); MONOCYTES # (AUTO) 0.5 10^3/uL (0.0-1.0); MONOCYTES % (AUTO) 6.1 %; NEUTROPHILS # (AUTO) 6.5 10^3/uL (1.5-6.6); NEUTROPHILS % (AUTO) 72.7 %; RED BLOOD COUNT 3.72 10^6/uL (4.20-5.40); UNCORRECTED WHITE BLOOD COUNT 8.9 x10^3/uL; WHITE BLOOD COUNT 8.9 x10^3/uL (4.8-10.8)
[2017-02-15 05:15] LABS: CREATININE 0.7 mg/dL (0.4-1.0); POTASSIUM 3.6 mmol/L (3.5-5.0)
[2017-02-15] MEDS: D5NS W/20 MEQ KCL 1,000 ML IV SCH ×2 (06:25→20:00)
[2017-02-15] MEDS: ACETAMINOPHEN 1,000 MG/100 ML 100 ML IV SCH ×4 (06:26→21:14)
[2017-02-15] MEDS: LEVOTHYROXINE 88 MCG TABLET PO SCH (06:26)
[2017-02-15] MEDS: SODIUM CHLORIDE FLUSH 0.9% 10 ML SYRINGE IVP SCH ×3 (06:26→21:14)
[2017-02-15] MEDS: HEPARIN 5,000 UNIT/ML VIAL SUBQ SCH ×3 (09:20→21:14)
[2017-02-15] MEDS: FAMOTIDINE 20 MG/50 ML 50 ML IV SCH ×2 (09:22→21:13)
--- NOTE | 2017-02-15 23:38 | PROVIDER PROGRESS NOTE ---
Subjective - General Admit Date: 02/14/17 Procedure Date: 02/14/17 Post Op Days: 1 - Review of Systems General: positive: No symptoms Gastrointestinal: positive: No symptoms Objective - Patient Data Vital Signs: Vital Signs x48h Temp Pulse Pulse Resp BP Pulse Ox 02/15/17 23:00 76 15 91/62 95 02/15/17 22:00 67 11 L 85/53 L 96 02/15/17 21:00 70 10 L 88/63 L 96 02/15/17 20:00 37.9 C H 70 9 L 102/76 95 02/15/17 19:00 72 16 88/54 L 93 02/15/17 18:00 85 16 92/55 L 92 02/15/17 17:00 83 16 92/55 L 94 02/15/17 16:00 37.1 C 74 12 91/53 L 91 L Weight: Weight 02/13/17 02/14/17 02/15/17 23:59 23:59 23:59 Weight (kg) 64.5 kg Intake & Output: Intake and Output Totals x24h 02/13/17 02/14/17 02/15/17 23:59 23:59 23:59 Intake Total 1331.25 2958.75 Output Total 1400 1035 Balance -68.75 1923.75 - Lab Results Lab Results: 02/15/17 04:41 02/15/17 04:41 Other Lab Results: Lab Results x24hrs 02/15/17 02/15/17 Range/Units 04:41 04:41 WBC 8.9 (4.8-10.8) x10^3/uL RBC 3.72 L (4.20-5.40) 10^6/uL Hgb 11.2 L (12.0-16.0) g/dL Hct 33.3 L (37.0-47.0) % MCV 89.6 (81.0-99.0) fL MCH 30.1 (27.0-31.0) pg MCHC 33.5 (32.0-36.0) g/dL RDW 13.0 (12.0-15.0) % Plt Count 174 (130-450) 10^3/uL MPV 8.7 (7.9-10.8) fL Neut # 6.5 (1.5-6.6) 10^3/uL Lymph # 1.8 (1.5-3.5) 10^3/uL [place] # 0.5 (0.0-1.0) 10^3/uL Eos # 0.0 (0.0-0.7) 10^3/uL Baso # 0.0 (0.0-0.1) 10^3/uL Absolute Nucleated RBC 0.00 x10^3/uL Nucleated RBC % 0.0 /100WBC Sodium 140 (135-145) mmol/L Potassium 3.6 (3.5-5.0) mmol/L Chloride 106 (101-111) mmol/L Carbon Dioxide 25 (21-32) mmol/L Anion Gap 9.0 (6-13) BUN 7 (6-20) mg/dL Creatinine 0.7 (0.4-1.0) mg/dL Estimated GFR (MDRD) 82 L (>89) Glucose 127 H (70-100) mg/dL Calcium 8.0 L (8.5-10.3) mg/dL - Current Medications Current Medications: Current Medications Generic Name Dose Route Start Last Admin Trade Name Freq PRN Reason Stop Dose Admin Heparin Sodium (Porcine) 5,000 unit 02/15/17 08:00 02/15/17 21:14 SUBQ 5,000 unit TID ADEBAYO Administration Hydromorphone HCl 10 mg 02/14/17 13:00 02/14/17 17:00 Dilaudid Health Advocate (Use Health Advocate Order Set) IV 10 mg PRN PRN Administration PAIN Protocol Famotidine 50 mls @ 100 mls/hr 02/14/17 21:00 02/15/17 22:00 Pepcid 20 Mg/50 Ml IV Infused BID ADEBAYO Infusion Acetaminophen 100 mls @ 400 mls/hr 02/14/17 16:00 02/15/17 21:30 Ofirmev IV Infused Q6H ADEBAYO Infusion Potassium Chloride/Dextrose/Sod Cl 1,000 mls @ 75 mls/hr 02/14/17 16:38 02/15 20:00 IV 75 mls/hr .[id number] ADEBAYO Administration Ketorolac Tromethamine 15 mg 02/14/17 15:51 02/14/17 16:31 Toradol Inj IVP 11/22/17 15:50 15 mg Q6HR PRN Administration PAIN Levothyroxine Sodium 88 mcg 02/15/17 07:00 02/15/17 06:26 Synthroid PO 88 mcg QDAC ADEBAYO Administration Sodium Chloride 10 ml 02/14/17 14:00 02/15/17 21:14 Normal Saline Flush 0.9% IVP Not Given Q8HR ADEBAYO - Physical Exam Abdomen: positive: Non-tender, Other (incisions clean without evidence of infection) Impression/Plan - Problem List Problem List: s/p laparoscopic sigmoid resection pod#1. Not really needing any pain medication. Currently recieving acetamenophen iv. Awaiting return of bowel. Function. Bp a little low but stable. Most likely physiologic. Hgb stable with no evidence of infection. No obvious cardiac issues. Mobilize patient. Follow up.
[2017-02-16] MEDS: ACETAMINOPHEN 1,000 MG/100 ML 100 ML IV SCH ×4 (04:14→21:22)
[2017-02-16 06:06] LABS: BASOPHILS % (AUTO) 0.3 %; EOSINOPHILS # (AUTO) 0.1 10^3/uL (0.0-0.7); EOSINOPHILS % (AUTO) 1.3 %; HCT - HEMATOCRIT 31.1 % (37.0-47.0); HGB - HEMOGLOBIN 10.3 g/dL (12.0-16.0); LYMPHOCYTES # (AUTO) 1.7 10^3/uL (1.5-3.5); LYMPHOCYTES % (AUTO) 15.9 %; MEAN CORPUSCULAR HEMOGLOBIN 29.9 pg (27.0-31.0); MEAN CORPUSCULAR VOLUME 90.6 fL (81.0-99.0); MEAN PLATELET VOLUME 9.3 fL (7.9-10.8); MONOCYTES # (AUTO) 0.6 10^3/uL (0.0-1.0); NEUTROPHILS # (AUTO) 8.1 10^3/uL (1.5-6.6); NEUTROPHILS % (AUTO) 76.5 %; RED BLOOD COUNT 3.43 10^6/uL (4.20-5.40); RED CELL DISTRIBUTION WIDTH 12.8 % (12.0-15.0); UNCORRECTED WHITE BLOOD COUNT 10.6 x10^3/uL; WHITE BLOOD COUNT 10.6 x10^3/uL (4.8-10.8)
[2017-02-16 06:17] LABS: CALCIUM 7.6 mg/dL (8.5-10.3); CREATININE 0.6 mg/dL (0.4-1.0); POTASSIUM 3.5 mmol/L (3.5-5.0)
[2017-02-16] MEDS: HEPARIN 5,000 UNIT/ML VIAL SUBQ SCH (06:24)
[2017-02-16] MEDS: LEVOTHYROXINE 88 MCG TABLET PO SCH (06:24)
[2017-02-16] MEDS: SODIUM CHLORIDE FLUSH 0.9% 10 ML SYRINGE IVP SCH ×3 (06:24→21:22)
[2017-02-16] MEDS: FAMOTIDINE 20 MG/50 ML 50 ML IV SCH ×2 (08:43→20:49)
[2017-02-16] MEDS: D5NS W/20 MEQ KCL 1,000 ML IV SCH ×2 (10:59→20:49)
[2017-02-16] MEDS: SENNA 8.6 MG TABLET PO SCH ×2 (17:21→19:30)
[2017-02-16] MEDS: KETOROLAC 15 MG/ML VIAL IVP PRN (18:27)
[2017-02-16] MEDS: HYDROmorphone PCA 10 MG IV PRN (20:49)
[2017-02-16] MEDS ORDERED: D5NS W/20 MEQ KCL 1,000 ML IV SCH (23:46)
--- NOTE | 2017-02-16 23:49 | PROVIDER PROGRESS NOTE ---
Subjective - General Admit Date: 02/14/17 Procedure Date: 02/14/17 Post Op Days: 2 Procedure Performed: laparoscopic sigmoid colectomy and mobilization of splenic flexure - Review of Systems General: positive: No symptoms Gastrointestinal: positive: No symptoms, Other (some flatus) Objective - Patient Data Vital Signs: Vital Signs x48h Temp Pulse Resp BP Pulse Ox 02/16/17 23:00 72 12 117/72 96 02/16/17 22:00 68 11 L 110/66 96 02/16/17 21:00 37.2 C 72 11 L 117/72 94 02/16/17 20:00 66 11 L 86/57 L 96 02/16/17 19:00 66 16 99/55 L 96 02/16/17 18:00 71 13 88/55 L 02/16/17 17:40 93 02/16/17 17:18 36.9 C 76 16 122/65 96 02/16/17 15:57 77 12 127/68 94 Weight: Weight 02/14/17 02/15/17 02/16/17 23:59 23:59 23:59 Weight (kg) 64.5 kg Intake & Output: Intake and Output Totals x24h 02/14/17 02/15/17 02/16/17 23:59 23:59 23:59 Intake Total 1331.25 2958.75 2947.5 Output Total 1400 1035 1630 Balance -68.75 1923.75 1317.5 - Lab Results Lab Results: 02/16/17 04:45 02/16/17 04:45 Other Lab Results: Lab Results x24hrs 02/16/17 02/16/17 Range/Units 04:45 04:45 WBC 10.6 (4.8-10.8) x10^3/uL RBC 3.43 L (4.20-5.40) 10^6/uL Hgb 10.3 L (12.0-16.0) g/dL Hct 31.1 L (37.0-47.0) % MCV 90.6 (81.0-99.0) fL MCH 29.9 (27.0-31.0) pg MCHC 33.0 (32.0-36.0) g/dL RDW 12.8 (12.0-15.0) % Plt Count 158 (130-450) 10^3/uL MPV 9.3 (7.9-10.8) fL Neut # 8.1 H (1.5-6.6) 10^3/uL Lymph # 1.7 (1.5-3.5) 10^3/uL Faulk # 0.6 (0.0-1.0) 10^3/uL Eos # 0.1 (0.0-0.7) 10^3/uL Baso # 0.0 (0.0-0.1) 10^3/uL Absolute Nucleated RBC 0.00 x10^3/uL Nucleated RBC % 0.0 /100WBC Sodium 138 (135-145) mmol/L Potassium 3.5 (3.5-5.0) mmol/L Chloride 109 (101-111) mmol/L Carbon Dioxide 24 (21-32) mmol/L Anion Gap 5.0 L (6-13) BUN 6 (6-20) mg/dL Creatinine 0.6 (0.4-1.0) mg/dL Estimated GFR (MDRD) 98 (>89) Glucose 127 H (70-100) mg/dL Calcium 7.6 L (8.5-10.3) mg/dL - Current Medications Current Medications: Current Medications Generic Name Dose Route Start Last Admin Trade Name Freq PRN Reason Stop Dose Admin Hydromorphone HCl 10 mg 02/14/17 13:00 02/16/17 20:49 Dilaudid Health Care Administrator (Use Health Care Administrator Order Set) IV 10 mg PRN PRN Administration PAIN Protocol Famotidine 50 mls @ 100 mls/hr 02/14/17 21:00 02/16/17 21:20 Pepcid 20 Mg/50 Ml IV Infused BID ADEBAYO Infusion Acetaminophen 100 mls @ 400 mls/hr 02/14/17 16:00 02/16/17 21:45 Ofirmev IV Infused Q6H ADEBAYO Infusion Ketorolac Tromethamine 15 mg 02/14/17 15:51 02/16/17 18:27 Toradol Inj IVP 02/19/17 15:50 15 mg Q6HR PRN Administration PAIN Levothyroxine Sodium 88 mcg 02/15/17 07:00 02/16/17 06:24 Synthroid PO 88 mcg QDAC ADEBAYO Administration Ondansetron HCl 4 mg 02/14/17 12:59 02/16/17 18:26 Zofran Inj IVP 4 mg Q6HR PRN Administration Nausea / Vomiting Senna 17.2 - 25.8 mg 02/16/17 14:00 02/16/17 19:30 Senokot PO 02/17/17 08:01 Not Given Q6H ADEBAYO Sodium Chloride 10 ml 02/14/17 14:00 02/16/17 21:22 Normal Saline Flush 0.9% IVP Not Given Q8HR ADEBAYO - Physical Exam Respiratory: positive: No respiratory distress, Breath sounds nml Cardiovascular: positive: Regular rate & rhythm Abdomen: positive: Non-tender, Other (incisions clean without evidence of infection) Impression/Plan - Problem List Problem List: s/p laparoscopic sigmoid resection pod#2. Doing well. Abdominal pain minimal. Blood pressure improving. Mobilize patient advance diet follow bp d/c amanda
[2017-02-17] MEDS: SENNA 8.6 MG TABLET PO SCH ×2 (01:09→08:23)
--- NOTE | 2017-02-17 01:23 | CONSULTATION NOTE ---
DATE OF CONSULTATION: REQUESTING PROVIDER: Wilma Salas. REASON FOR REFERRAL: Abdominal pain. HISTORY OF PRESENT ILLNESS: The patient is a 76-year-old female who presents with recurrent diverticu litis. Her last episode was approximately a year ago. She had a followup colonoscopy which showed mul tiple diverticula throughout her colon with several adenomatous polyps being removed. She now present s with about a 10-day history of abdominal pain. She had been started on doxycycline due to her aller gies to multiple antibiotics. She continued to have pain and therefore, she came to the emergency [facility]cca to be evaluated. She had a CT scan of the abdomen and pelvis which showed diverticulitis in the mid to distal sigmoid colon without evidence of complication such as perforation. She has been on antibi otics and still has some abdominal pain. Her white blood cell count has normalized. PAST SURGICAL HISTORY: Appendectomy. MEDICAL PROBLEMS: Hypothyroidism, recurrent diverticulitis, gastroesophageal reflux disease and histo ry of Kunz's. MEDICATIONS Thyroid replacement. SOCIAL HISTORY: The patient is . ALLERGIES: FLAGYL, TYLENOL, KEFLEX, CODEINE, NORCO, DEMEROL, AVELOX, NAPROSYN, PENICILLIN AND CIPRO. HABITS: The patient denies any smoking or drug use, socially uses alcohol. FAMILY HISTORY: Noncontributory. REVIEW OF SYSTEMS: A complete review of systems obtained. Pertinent positives are gastrointestinal - gastroesophageal re flux disease occasionally and abdominal pain. A 12-point review of systems obtained with pertinent po sitives discussed and all others being negative. PHYSICAL EXAMINATION VITAL SIGNS: Temperature is 36.6, pulse is 61, blood pressure 147/74. GENERAL: The patient is lying in bed. She is cooperative and not in any significant distress at the urrent time. HEENT: Eyes not icteric. NECK: No lymphadenopathy. HEART: Regular. LUNGS: Clear. BACK: Nontender. ABDOMEN: Soft, mild tenderness in the left lower quadrant. No peritoneal signs, no obvious hernias. EXTREMITIES: No edema or cyanosis. NEUROLOGICAL: The patient appears to be neurologically intact without any deficits. PSYCHOLOGICAL: The patient is coherent, cooperative, and appears to answer questions fully. DIAGNOSTIC DATA: White blood cell count of 10.3, hemoglobin 11.7. CT scan of the abdomen and pelvis s ee history of present illness, assessment is recurrent sigmoid diverticulitis. I feel that the patient will need at least 5-7 days more of IV antibiotics. Because she is allergic t op most oral antibiotics I would recommend to see if we can set up home IV antibiotics. PLAN: 1. Advance diet as tolerated as abdominal pain resolves. 2. Continue IV antibiotics. 3. Will try and set up home IV infusion of antibiotics. JOB #: [id number] EXT JOB #:[id number]
[2017-02-17] MEDS: ACETAMINOPHEN 1,000 MG/100 ML 100 ML IV SCH ×4 (04:11→21:55)
[2017-02-17 05:39] LABS: BASOPHILS # (AUTO) 0.1 10^3/uL (0.0-0.1); BASOPHILS % (AUTO) 0.6 %; EOSINOPHILS # (AUTO) 0.2 10^3/uL (0.0-0.7); EOSINOPHILS % (AUTO) 2.7 %; HCT - HEMATOCRIT 30.6 % (37.0-47.0); HGB - HEMOGLOBIN 10.2 g/dL (12.0-16.0); LYMPHOCYTES # (AUTO) 1.2 10^3/uL (1.5-3.5); LYMPHOCYTES % (AUTO) 13.7 %; MEAN CORPUSCULAR HEMOGLOBIN 30.1 pg (27.0-31.0); MEAN CORPUSCULAR HGB CONC 33.2 g/dL (32.0-36.0); MEAN CORPUSCULAR VOLUME 90.8 fL (81.0-99.0); MEAN PLATELET VOLUME 8.9 fL (7.9-10.8); MONOCYTES # (AUTO) 0.5 10^3/uL (0.0-1.0); MONOCYTES % (AUTO) 5.4 %; NEUTROPHILS # (AUTO) 6.9 10^3/uL (1.5-6.6); NEUTROPHILS % (AUTO) 77.6 %; RED BLOOD COUNT 3.37 10^6/uL (4.20-5.40); RED CELL DISTRIBUTION WIDTH 12.9 % (12.0-15.0); UNCORRECTED WHITE BLOOD COUNT 8.9 x10^3/uL; WHITE BLOOD COUNT 8.9 x10^3/uL (4.8-10.8)
[2017-02-17 05:54] LABS: CALCIUM 8.1 mg/dL (8.5-10.3); CREATININE 0.6 mg/dL (0.4-1.0); POTASSIUM 3.3 mmol/L (3.5-5.0)
[2017-02-17] MEDS: SODIUM CHLORIDE FLUSH 0.9% 10 ML SYRINGE IVP SCH ×3 (06:41→21:56)
[2017-02-17] MEDS: LEVOTHYROXINE 88 MCG TABLET PO SCH (06:41)
[2017-02-17] MEDS ORDERED: HYDROmorphone 0.5 MG/0.5 ML SYRINGE IVP PRN (08:58)
[2017-02-17] MEDS ORDERED: D5NS W/20 MEQ KCL 1,000 ML IV SCH (08:59)
[2017-02-17] MEDS: NS W/40 MEQ KCL 1,000 ML IV SCH (09:12)
[2017-02-17] MEDS: FAMOTIDINE 20 MG TABLET PO SCH ×2 (09:39→20:41)
--- NOTE | 2017-02-17 11:27 | OPERATIVE REPORT ---
DATE OF SURGERY: 02/14/2017 00:00:00 PREOPERATIVE DIAGNOSIS: Recurrent sigmoid diverticulitis. POSTOPERATIVE DIAGNOSIS: Recurrent sigmoid diverticulitis. PROCEDURES 1. Laparoscopic sigmoid colon resection with colorectal anastomosis. 2. Mobilization of the splenic flexure. OPERATING SURGEON: Cesar Hairston MD IRONING WORKER: Sandy Gipson MD ANESTHESIA PROVIDER: Freddy Kay MD ANESTHESIA: General. INDICATION FOR PROCEDURE: Patient is a 76-year-old female who has had multiple episodes of diverticulitis in the sigmoid colon. She did have one episode diverticulitis at the splenic flexure in 2013. The colonoscopy last year had several polyps removed from the right colon with multiple diverticula noted throughout the colon. She did have one area that was a little irritated and was injected with dye a year ago. Her recent CT scan did not show any abnormalities other than the treated diverticulitis of the sigmoid colon 3 months ago. Because of the recurrent diverticulitis, she would like to undergo surgical resection of the sigmoid colon. I stated that I would look at the splenic flexure at the time and make a decision whether to excise it or not. This would make the colon surgery a lot more difficult if needing to have the splenic flexure. However, if it did appear to be abnormal, I definitely would remove it. FINDINGS OF THE PROCEDURE: Patient had significant diverticula throughout the sigmoid colon. This carried all the way up to the sigmoid-left colon junction. Therefore, the entire sigmoid colon, along with part of the descending colon distally was excised. A colorectal anastomosis was performed using a 28 EEA stapling device. After completing the anastomosis and inserting air, there did not appear to be an air leak. There also did not appear to be any tension at the anastomosis. The area that was injected with dye at the splenic flexure appeared to be soft, without any significant disease grossly. Patient had a considerable amount of adherent tissue in the splenic flexure and transverse colon. 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 Because of the dense nature and not able to introduce any planes in order to properly free up the transverse colon, I did not feel that it would be appropriate to resect the splenic flexure at this time. If needed, a laparotomy would be performed to do this, due to the dense nature of the tissue in the upper abdominal area. I felt she was better served by doing the left hemicolectomy only where she had the multiple episodes of diverticulitis. PROCEDURE: After informed consent was obtained, the patient was taken to the operating room and placed in supine position. General endotracheal anesthesia was administered. Patient was then placed in lithotomy position. The patient's abdomen was then prepped and draped in the usual sterile fashion. An incision was then made in the infraumbilical area, and a 5 mm Optiview trocar was inserted through the incision, through the fascia, and into the abdominal cavity under direct vision. The abdomen was then insufflated. A 5 mm port was placed in the right mid abdomen and a 12 mm port placed in the right lower quadrant. Patient did have adhesions in the right lower quadrant from previous appendectomy, and these were taken down using the LigaSure cautery device. The small bowel was then brought out of the pelvis. The patient's entire sigmoid colon was diseased with multiple diverticula obviously being seen. First the mesentery of the sigmoid colon was then divided medially. There were multiple adhesions to the lateral sidewall of the pelvis laterally. These were taken down using the LigaSure cautery device. The ureter was then identified and preserved. The lateral attachments to the sigmoid colon were then divided, going down in the rectum to the pelvis. The colon appeared to be narrowed going into the rectum. At this point, where it did dilate up is where the anastomosis would be performed. Attention then turned to dividing the superior hemorrhoidal vessels. The mesentery of the sigmoid colon was identified with the dissection performed underneath it, lifting it from its posterior attachments. Ureter was then identified throughout the pelvis looking through the defect created in the mesentery. The superior hemorrhoidal vessels were then identified, isolated, clipped proximally and then divided. Lateral peritoneal attachments going up the left colon were then divided using LigaSure cautery device. The patient had dense omentum in the left upper quadrant, which was attached to both sigmoid colon and the anterolateral wall of the abdomen. These were taken down using LigaSure cautery device. Splenic flexure was then taken down using the LigaSure cautery device. This took a considerable amount of time in order to divide the colosplenic and phrenocolic ligaments. However, once this was done, I was able to free up the flexure. Looking at the colon in this area, the colon appeared to be viable, without any thickened tissue or obvious inflammation. I attempted to take the omentum down from the transverse colon distal portion. However, there was no plane between omentum and the mesentery that I could discern. This left a defect in the omentum. The ligament was then divided laterally, which would allow the omentum to be brought down in the pelvis, relying on the right- sided vasculature of the omentum. There also allowed the transverse colon to be brought down from, fully mobilizing the left colon. A 5 mm port was placed in the left lower quadrant, allowing visualization of this portion of the procedure. Now that I felt that I had mobilized the left colon adequately, the resection was then performed. A Pfannenstiel incision was then performed and carried down to the fascial layer using electrocautery. The anterior rectus sheath was then divided transversely, with flaps being developed superiorly and inferiorly above the rectus muscle. The midline peritoneum was then opened and the wound protector was then placed. The sigmoid colon was then brought out through this wound. I had marked intraabdominal where the diverticulitis not seen in the descending colon. Any remaining mesentery was then divided using the LigaSure cautery device at this position. A purse string stapling device was then placed across the distal descending colon, with the distal end being divided on the device and removed from the patient. A 28 EEA anvil was then inserted in the open lumen of the distal descending colon, with the suture then being tied. The distal end of the descending colon was then brought back down into the abdominal cavity. The peritoneum was then closed using a 3-0 Vicryl suture. The anterior rectus sheath was closed using running #0 Vicryl suture. The abdomen was then insufflated. A dilator up to 28 was then placed through the anus and up the rectum to its proximal end. The 28 EEA stapling device was then placed through the anus and up into the proximal rectum. The pointed end of the EEA was then brought through the stapled end of the rectum and the anvil was then attached to this spike. The EEA stapling device was then closed and engaged, stapling the 2 bowel lumens together. The EEA stapling device was then removed, with both donuts being intact. Fluid was then placed in the pelvis and air insufflated into the rectum. No air leak was noted. The rigid sigmoidoscopy was then removed after evacuating the air. Pelvis was then irrigated, and no bleeding was noted. The end of the omentum was then placed down into the pelvis. The 12 mm port fascial defect was closed using #0 Vicryl suture using a suture passer. The ports were then removed and the abdomen then desufflated. The wounds were irrigated and hemostasis was obtained using electrocautery. Skin incisions were closed using 4-0 Monocryl subcuticular stitch, Dermabond then being applied. The patient was then awakened , extubated, and taken from the operating room in stable condition. ESTIMATED BLOOD LOSS: 100 mL. COMPLICATIONS: None. CONDITION OF PATIENT AT END OF PROCEDURE: Stable. SPECIMENS: Sigmoid colon. DRAINS OR PACKS: None. CLASSIFICATION OF WOUND: Clean-contaminated. JOB #: [id number] EXT JOB #:[id number] MTDD
[2017-02-18] MEDS: ACETAMINOPHEN 1,000 MG/100 ML 100 ML IV SCH ×3 (03:34→17:44)
[2017-02-18 05:16] LABS: BASOPHILS # (AUTO) 0.1 10^3/uL (0.0-0.1); BASOPHILS % (AUTO) 0.9 %; EOSINOPHILS # (AUTO) 0.3 10^3/uL (0.0-0.7); EOSINOPHILS % (AUTO) 3.2 %; HCT - HEMATOCRIT 30.7 % (37.0-47.0); HGB - HEMOGLOBIN 10.2 g/dL (12.0-16.0); LYMPHOCYTES # (AUTO) 1.2 10^3/uL (1.5-3.5); LYMPHOCYTES % (AUTO) 14.5 %; MEAN CORPUSCULAR HEMOGLOBIN 29.9 pg (27.0-31.0); MEAN CORPUSCULAR HGB CONC 33.3 g/dL (32.0-36.0); MEAN CORPUSCULAR VOLUME 89.9 fL (81.0-99.0); MONOCYTES # (AUTO) 0.5 10^3/uL (0.0-1.0); MONOCYTES % (AUTO) 6.5 %; NEUTROPHILS # (AUTO) 5.9 10^3/uL (1.5-6.6); NEUTROPHILS % (AUTO) 74.9 %; RED BLOOD COUNT 3.41 10^6/uL (4.20-5.40); RED CELL DISTRIBUTION WIDTH 12.7 % (12.0-15.0); UNCORRECTED WHITE BLOOD COUNT 7.9 x10^3/uL; WHITE BLOOD COUNT 7.9 x10^3/uL (4.8-10.8)
[2017-02-18 05:29] LABS: CALCIUM 8.1 mg/dL (8.5-10.3); CREATININE 0.6 mg/dL (0.4-1.0); POTASSIUM 3.4 mmol/L (3.5-5.0)
[2017-02-18] MEDS: traMADol 50 MG TABLET PO PRN ×3 (06:52→17:52)
[2017-02-18] MEDS: LEVOTHYROXINE 88 MCG TABLET PO SCH (06:53)
[2017-02-18] MEDS: SODIUM CHLORIDE FLUSH 0.9% 10 ML SYRINGE IVP SCH ×2 (06:53→17:44)
[2017-02-18] MEDS: NS W/40 MEQ KCL 1,000 ML IV SCH (07:17)
[2017-02-18] MEDS: FAMOTIDINE 20 MG TABLET PO SCH (10:00)
[2017-02-18] MEDS ORDERED: IBUPROFEN 400 MG TABLET PO PRN (13:04)
--- NOTE | 2017-02-18 17:30 | Discharge Plan ---
Discharge Plan Disposition: 01 Home, Self Care Condition: Good Prescriptions: traMADol [Ultram] 50 mg PO Q6HR PRN #60 tablet PRN Reason: Pain Diet: Regular Activity Restrictions: no lifting over 15 lbs Shower Restrictions: No Driving Restrictions: Yes Weight Bearing: Full Weight Instruction Topics: Abdomen Surg Dc, Limited Bowel Resection Surg No Smoking: If you smoke, Please STOP! Call for help. Follow-up with: Wilma Sharma MD [Primary Care Provider] - 2 Weeks Cesar Hairston MD [Provider Admit Priv/Credential] - 1 Week
[2017-02-18 17:43] VITALS: BP 142/83
== END 2017-02-18 18:10 | disposition home or self-care (01) | DRG 331 ==
LOC: MS2 06:04 → MS3 08:33 → ICU 14:45
PROVIDERS: ADMIT Surgery; ATTEND Surgery
PROC: 0DJD8ZZ Inspection of Lower Intestinal Tract, Via Natural or Artificial Opening Endoscopic (ICD-10-PCS; 2017-02-14)
PROC: 0DTN0ZZ Resection of Sigmoid Colon, Open Approach (ICD-10-PCS; principal; 2017-02-14 07:30)
DX: K57.32 Diverticulitis of large intestine without perforation or abscess without bleeding (principal); K66.0 Peritoneal adhesions (postprocedural) (postinfection); E03.9 Hypothyroidism, unspecified; K21.9 Gastro-esophageal reflux disease without esophagitis; K22.70 Barrett's esophagus without dysplasia; I95.9 Hypotension, unspecified; Z88.0 Allergy status to penicillin; Z88.1 Allergy status to other antibiotic agents; Z86.010 Personal history of colon polyps; Z87.891 Personal history of nicotine dependence
CPT/HCPCS: 36415; 80048; 80053; 82330; 83735; 84100; 84484; 85014; 85018; 85025; 87150; 87493; 88307; 93005

== ENCOUNTER 2017-03-28 08:00 | Outpatient (CLI) | payer MEDICARE | END 2017-03-28 08:01 | disposition home or self-care (01) | LOC: LAB.R 08:00 | PROVIDERS: ATTEND Surgery | DX: R19.7 Diarrhea, unspecified (principal) | CPT/HCPCS: 87045; 87046; 87205; 87493 ==

== ENCOUNTER 2017-05-15 10:39 | Inpatient (IN) | payer MEDICARE ==
[2017-05-15 11:53] LABS: BASOPHILS # (AUTO) 0.1 10^3/uL (0.0-0.1); BASOPHILS % (AUTO) 0.6 %; EOSINOPHILS % (AUTO) 0.6 %; HGB - HEMOGLOBIN 13.4 g/dL (12.0-16.0); LYMPHOCYTES # (AUTO) 1.6 10^3/uL (1.5-3.5); MEAN CORPUSCULAR HEMOGLOBIN 29.7 pg (27.0-31.0); MEAN CORPUSCULAR VOLUME 87.5 fL (81.0-99.0); MEAN PLATELET VOLUME 8.5 fL (7.9-10.8); MONOCYTES # (AUTO) 0.2 10^3/uL (0.0-1.0); MONOCYTES % (AUTO) 2.2 %; NEUTROPHILS # (AUTO) 6.5 10^3/uL (1.5-6.6); NEUTROPHILS % (AUTO) 77.6 %; PLT - PLATELET COUNT 210 10^3/uL (130-450); RED BLOOD COUNT 4.51 10^6/uL (4.20-5.40); WHITE BLOOD COUNT 8.4 x10^3/uL (4.8-10.8)
--- NOTE | 2017-05-15 12:01 | ED Physician Documentation ---
PD HPI ABD PAIN - Stated complaint Stated Complaint: ABD PX - Chief complaint Chief Complaint: Abd Pain - History obtained from History obtained from: Patient - History of Present Illness Timing - onset: Yesterday Timing - duration: Days (1) Timing - details: Gradual onset, Still present, Waxing and waning Quality: Cramping, Aching, Pain Location: LLQ Radiation: No: Chest, Lower back Improved by: Position Worsened by: Moving, Palpation Associated symptoms: Fever (subjective), Diarrhea (loose stools yesterday and today). No: Nausea, Vomiting Similar symptoms before: Has not had sx before Recently seen: Not recently seen Review of Systems Constitutional: reports: Fever, Chills Nose: denies: Rhinorrhea / runny nose, Congestion Throat: denies: Sore throat Respiratory: denies: Cough GI: reports: Abdominal Pain, Nausea, Diarrhea. denies: Abdominal Swelling, Vomiting, Constipation, Hematemesis, Bloody / black stool : denies: Dysuria, Frequency Skin: denies: Rash Neurologic: denies: Generalized weakness, Near syncope PD PAST MEDICAL HISTORY - Past Medical History Past Medical History: Yes Cardiovascular: High cholesterol, Atrial flutter Respiratory: None Neuro: None Endocrine/Autoimmune: HyPOthyroidism GI: GERD, Hiatal hernia, Colon polyps, Chronic diarrhea, Diverticulitis, Cholelithiasis, Other TABLEAU DEVELOPER: Other : None HEENT: Chronic vision loss, Chronic hearing loss Psych: Anxiety Musculoskeletal: None Derm: Herpes zoster - Past Surgical History Past Surgical History: Yes General: Cholecystectomy, Appendectomy, Colonoscopy, EGD, Other /TABLEAU DEVELOPER: Dilation and currettage, Tubal ligation, LEEP (Cervical surgery) HEENT: Tonsil/Adenoidectomy - Present Medications Home Medications: Ambulatory Orders Medication Instructions Recorded Confirmed Levothyroxine Sodium [Tirosint] 88 mcg PO DAILY 06/08/13 02/14/17 - Allergies Allergies/Adverse Reactions: Allergies Allergy/AdvReac Type Severity Reaction Status Date / Time metronidazole [From Flagyl] Allergy Severe Unknown Verified 01/30/17 10:38 Metronidazole HCl * Allergy Mild Unknown Verified 01/30/17 10:38 [From Flagyl] cephalexin monohydrate * Allergy Unknown Verified 01/30/17 10:38 [From Keflex] codeine Allergy Respiratory Verified 01/30/17 10:38 hydrocodone bitartrate * Allergy Unknown Verified 01/30/17 10:38 [From Vicodin] meperidine HCl * Allergy Hives Verified 01/30/17 10:38 [From Demerol] moxifloxacin HCl * Allergy Unknown Verified 01/30/17 10:38 [From Avelox] naproxen [From Naprosyn] Allergy Hives Verified 01/30/17 10:38 Penicillins Allergy Unknown Verified 01/30/17 10:38 ciprofloxacin AdvReac Mild vomiting Verified 01/30/17 10:38 - Social History Does the pt smoke?: No Smoking Status: Never smoker Does the pt drink ETOH?: Yes Does the pt have substance abuse?: No - Family History Family history: reports: Non contributory - Immunizations Immunizations are current?: Yes - POLST Patient has POLST: No POLST Status: DNR (While she would like all measures to save her life such as emergency surgery, intubation for pneumonia and respiratory failure, blood transfusion products, antibiotics, ICU care, she does not want to be resuscitated in the event of a cardiopulmonary arrest that occurs after all the above been done) PD ED PE NORMAL - Vitals Vital signs reviewed: Yes - General General: Alert and oriented X 3, No acute distress, Well developed/nourished - HEENT HEENT: Pharynx benign - Neck Neck: Supple, no meningeal sign, No adenopathy - Cardiac Cardiac: RRR, No murmur - Respiratory Respiratory: Clear bilaterally - Abdomen Abdomen: Normal bowel sounds, Soft, Non distended, No organomegaly, Other ( tender left lower without guarding. Some mild diffuse tenderness without percussion tender. Bowel sounds decreased.) - Female Female : Deferred - Rectal Rectal: Deferred - Back Back: No CVA TTP - Derm Derm: Normal color, Warm and dry - Extremities Extremities: No deformity, No tenderness to palpate, Normal ROM s pain, No edema , No calf tenderness / cord - Neuro Neuro: Alert and oriented X 3, No motor deficit, Normal speech Results - Vitals Vitals: Vital Signs - 24 hr 05/15/17 05/15/17 10:41 13:46 Temperature 36.7 C Heart Rate 64 70 Respiratory 22 18 Rate Blood Pressure 141/96 H 131/72 H O2 Saturation 97 96 Oxygen O2 Source Room air - Labs Labs: Laboratory Tests 05/15/17 05/15/17 11:49 11:49 WBC 8.4 RBC 4.51 Hgb 13.4 Hct 39.4 MCV 87.5 MCH 29.7 MCHC 34.0 RDW 13.0 Plt Count 210 MPV 8.5 Neut # 6.5 Lymph # 1.6 Elk # 0.2 Eos # 0.0 Baso # 0.1 Absolute Nucleated RBC 0.00 Nucleated RBC % 0.0 Sodium 138 Potassium 3.6 Chloride 101 Carbon Dioxide 24 Anion Gap 13.0 BUN 14 Creatinine 0.9 Estimated GFR (MDRD) 61 L Glucose 109 H Calcium 9.4 Total Bilirubin 0.6 AST 22 ALT 23 Alkaline Phosphatase 60 Total Protein 7.2 Albumin 4.2 Globulin 3.0 Albumin/Globulin Ratio 1.4 Lipase 37 - Rads (name of study) abd CT Radiology: Prelim report reviewed (sigmoid/lower colon diverticulitis. No perforation. No obstruction. ) PD MEDICAL DECISION MAKING - ED course Complexity details: reviewed results, re-evaluated patient (very limited on IV abx choices due to allergies. Will need IV initially. Otherwise stable. ), considered differential, d/w patient, d/w engagement quality consultant (Dr. Hairston) Departure - Departure Disposition: 66 [facility] DC/Xfer Clinical Impression: Diverticulitis Abdominal pain Qualifiers: Abdominal location: lower abdomen, unspecified Qualified Code(s): R10.30 - Lower abdominal pain, unspecified Condition: Stable Record reviewed to determine appropriate education?: Yes
[2017-05-15 12:12] LABS: ALBUMIN 4.2 g/dL (3.2-5.5); ALBUMIN/GLOBULIN RATIO 1.4 (1.0-2.2); BILIRUBIN,TOTAL 0.6 mg/dL (0.2-1.0); CALCIUM 9.4 mg/dL (8.5-10.3); CREATININE 0.9 mg/dL (0.4-1.0); TOTAL PROTEIN 7.2 g/dL (6.7-8.2)
[2017-05-15] MEDS ORDERED: HYDROmorphone 1 MG/ML SYRINGE IVP STA (12:13)
[2017-05-15] MEDS ORDERED: SODIUM CHLORIDE 0.9% 1,000 ML IV ONE (12:13)
[2017-05-15] MEDS ORDERED: ONDANSETRON 4 MG/2 ML VIAL IVP STA (12:13)
[2017-05-15] MEDS ORDERED: IOPAMIDOL-300 100 ML VIAL ONE (12:38)
[2017-05-15] MEDS ORDERED: IOPAMIDOL-300 100 ML VIAL IVP ONE (13:07)
--- NOTE | 2017-05-15 13:36 | CT Preliminary Report ---
Exam: CT ABDOMEN/PELVIS W/ IMPRESSION: 1. Abnormal distal descending and proximal sigmoid colon consistent with diverticulitis. Differential includes colitis, pseudomembranous colitis as well as ischemia. 2. The new bulky asymmetric wall thickening along the antimesenteric aspect of of the involved descen ding colon raises the possibility of underlying mass lesion in this region. Therefore, follow-up CT a bdomen (using oral contrast) and pelvis after treatment or direct inspection of this portion of the c olon should be considered to rule out mass lesion that was not present previously. [facility] SITE ID: [id number]
--- NOTE | 2017-05-15 13:47 | CT Report ---
EXAM: CT ABDOMEN AND PELVIS EXAM DATE: 05/15/2017 01:05 PM. CLINICAL HISTORY: History of diverticulitis. Diffuse abdominal pain since yesterday. COMPARISONS: 11/05/2016. TECHNIQUE: Routine helical CT imaging was performed through the abdomen and pelvis. IV contrast: Isov ue-300, 100 mL. Enteric contrast: No. Reconstructions: Coronal and sagittal. In accordance with CT protocol optimization, one or more of the following dose reduction techniques w ere utilized for this exam: automated exposure control, adjustment of mA and/or KV based on patient s ize, or use of iterative reconstructive technique. FINDINGS: Lung Bases: Unremarkable. Liver: Several stable subcentimeter cysts. Gallbladder/Bile Ducts: Cholecystectomy. Common bile duct remains 21 mm in diameter proximally, taper ing to 6 mm distally. No calcified stones in the area of the common bile duct. No intrahepatic biliar y duct dilatation. Spleen: Normal. Pancreas: Normal. Adrenal Glands: Normal. Kidneys: Normal. No masses or hydronephrosis. Peritoneal Cavity/Bowel: Several new clips in the left upper quadrant, superior-most aspect of the le ft paracolic gutter. Patient has undergone interval resection of the mid to distal sigmoid colon. New marked asymmetric wall thickening beginning at the descending colon, axial image 36, coronal imag e 23, with moderate circumferential wall thickening over the 8 cm segment distal to this, now involvi ng the proximal sigmoid colon. Small amount of edema adjacent to this abnormal portion of the colon. Large and small bowel of normal caliber. Tiny amount of left paracolic and pelvic fluid. No free air nor abscess. Appendix not visualized but no inflammatory changes adjacent to the cecum. Pelvic Organs: Trace of free pelvic fluid. The bladder and visualized pelvic organs are within normal limits. Vasculature: No aneurysms or other significant abnormality. Bones: No significant abnormality. Other: None. IMPRESSION: 1. Abnormal distal descending andproximal sigmoid colon consistent with diverticulitis. Full differen tial includes colitis, pseudomembranous colitis as well as ischemia. 2. The new bulky asymmetric wall thickening along the antimesenteric aspect of the involved descendin g colon raises the possibility of underlying mass lesion in this region. Therefore, follow-up CT abdo men (using oral contrast) and pelvis after treatment or direct inspection of this portion of the colo n should be considered to rule out mass lesion that was not present previously. [facility] Referring Provider Line: [phone] SITE ID: [id number]
[2017-05-15] MEDS ORDERED: AZTREONAM 2 GM in SODIUM CHLORIDE 0.9% MINIBAG 100 ML IV STA (14:18)
[2017-05-15] MEDS ORDERED: HYDROmorphone 1 MG/ML SYRINGE IVP PRN (15:27)
[2017-05-15] MEDS ORDERED: ONDANSETRON 4 MG/2 ML VIAL IVP PRN (15:28)
[2017-05-15] MEDS: SODIUM CHLORIDE FLUSH 0.9% 10 ML SYRINGE ONE (16:50)
[2017-05-15] MEDS: MEROPENEM 1 GM in SODIUM CHLORIDE 0.9% MINIBAG 100 ML IV SCH ×2 (17:02→23:28)
[2017-05-15] MEDS ORDERED: metroNIDAZOLE 500 MG/100 ML 500 MG/100 ML BAG IV SCH (18:00)
[2017-05-15] MEDS: CLINDAMYCIN IV 600 MG/50 ML IV SCH (18:04)
[2017-05-15 18:08] LABS: BILIRUBIN,URINE NEGATIVE (NEGATIVE); GLUCOSE, URINE (UA) NEGATIVE (NEGATIVE); KETONES,URINE (UA) NEGATIVE (NEGATIVE); LEUKOCYTE ESTERASE, URINE NEGATIVE (NEGATIVE); NITRITE,URINE NEGATIVE (NEGATIVE); OCCULT BLOOD,URINE NEGATIVE (NEGATIVE); PH,URINE 5.5 PH (5.0-7.5); PROTEIN,URINE NEGATIVE (NEGATIVE); UROBILINOGEN,URINE 0.2 (NORMAL) E.U./dL (NORMAL)
[2017-05-15 18:09] LABS: CLARITY,URINE CLEAR (CLEAR)
[2017-05-15] MEDS: SODIUM CHLORIDE 0.9% 1,000 ML IV SCH (22:20)
[2017-05-15] MEDS: CALCIUM CARBONATE CHEW 500 MG TABLET PO PRN (22:28)
[2017-05-16] MEDS: CLINDAMYCIN IV 600 MG/50 ML IV SCH ×3 (01:54→17:41)
[2017-05-16] MEDS: SODIUM CHLORIDE FLUSH 0.9% 10 ML SYRINGE ONE ×2 (05:33→05:35)
[2017-05-16 06:07] LABS: HGB - HEMOGLOBIN 11.6 g/dL (12.0-16.0); MEAN CORPUSCULAR HEMOGLOBIN 29.2 pg (27.0-31.0); MEAN CORPUSCULAR HGB CONC 33.5 g/dL (32.0-36.0); MEAN CORPUSCULAR VOLUME 87.1 fL (81.0-99.0); MEAN PLATELET VOLUME 8.9 fL (7.9-10.8); RED BLOOD COUNT 3.97 10^6/uL (4.20-5.40); WHITE BLOOD COUNT 9.1 x10^3/uL (4.8-10.8)
--- NOTE | 2017-05-16 06:10 | XRAY Preliminary Report ---
Exam: XR ABDOMEN ACUTE IMPRESSION: 1. No bowel obstruction seen. 2. Mild bibasilar atelectasis and possible trace pleural effusions. [facility] SITE ID: [id number]
--- NOTE | 2017-05-16 06:10 | XRAY Report ---
EXAM: ABDOMINAL SERIES AND PA CHEST EXAM DATE: 05/16/2017 05:37 AM. CLINICAL HISTORY: Abdominal pain. COMPARISON: Chest, 04/08/2016. TECHNIQUE: 2 views abdomen and 1 view chest. FINDINGS: CHEST: Lungs/Pleura: Mild bibasilar atelectasis. Possible trace pleural effusions. No pneumothorax. Mediastinum: Within exam limitations, cardiomediastinal contour is normal. ABDOMEN: Bowel Gas Pattern: No dilated loops or abnormal air-fluid levels. Free Air: None. Other: Postoperative changes. IMPRESSION: 1. No bowel obstruction seen. 2. Mild bibasilar atelectasis and possible trace pleural effusions. [facility] Referring Provider Line: [phone] SITE ID: [id number]
[2017-05-16] MEDS: LEVOTHYROXINE 88 MCG TABLET PO SCH (06:36)
[2017-05-16] MEDS: MEROPENEM 1 GM in SODIUM CHLORIDE 0.9% MINIBAG 100 ML IV SCH ×2 (09:11→16:17)
--- NOTE | 2017-05-16 13:25 | PROVIDER PROGRESS NOTE ---
Subjective - General Admit Date: 05/15/17 Procedure Date: 02/14/17 Post Op Days: 91 - Review of Systems Gastrointestinal: positive: Other (No c/o significant abdominal pain. Normal bowel movement last night.) Objective - Patient Data Vital Signs: Vital Signs x48h Temp Pulse Resp BP Pulse Ox 05/16/17 12:47 37 C 69 16 94/55 L 93 05/16/17 06:55 37.4 C 78 16 90/50 L 93 05/16/17 06:46 37.4 C Weight: Weight 05/14/17 05/15/17 05/16/17 23:59 23:59 23:59 Weight (kg) 56.699 kg Intake & Output: Intake and Output Totals x24h 05/14/17 05/15/17 05/16/17 23:59 23:59 23:59 Intake Total 1190 1780 Output Total 125 550 Balance 1065 1230 - Lab Results Lab Results: 05/16/17 05:44 05/15/17 11:49 Other Lab Results: Lab Results x24hrs 05/16/17 05/15/17 Range/Units 05:44 17:50 WBC 9.1 (4.8-10.8) x10^3/uL RBC 3.97 L (4.20-5.40) 10^6/uL Hgb 11.6 L (12.0-16.0) g/dL Hct 34.5 L (37.0-47.0) % MCV 87.1 (81.0-99.0) fL MCH 29.2 (27.0-31.0) pg MCHC 33.5 (32.0-36.0) g/dL RDW 13.0 (12.0-15.0) % Plt Count 207 (130-450) 10^3/uL MPV 8.9 (7.9-10.8) fL Urine Color YELLOW Urine Clarity CLEAR (CLEAR) Urine pH 5.5 (5.0-7.5) PH Ur Specific [place] 1.020 (1.002-1.030) Urine Protein NEGATIVE (NEGATIVE) mg/dL Urine Glucose (UA) NEGATIVE (NEGATIVE) mg/dL Urine Ketones NEGATIVE (NEGATIVE) mg/dL Urine Occult Blood NEGATIVE (NEGATIVE) Urine Nitrite NEGATIVE (NEGATIVE) Urine Bilirubin NEGATIVE (NEGATIVE) Urine Urobilinogen 0.2 (NORMAL) (NORMAL) E.U./dL Ur Leukocyte Esterase NEGATIVE (NEGATIVE) Ur Microscopic Review NOT INDICATED Urine Culture Comments NOT INDICATED - Current Medications Current Medications: Current Medications Generic Name Dose Route Start Last Admin Trade Name Freq PRN Reason Stop Dose Admin Calcium Carbonate/Glycine 1,000 mg 05/15/17 22:12 05/15/17 22:28 Tums PO 05/20/17 22:11 1,000 mg Q6HR PRN Administration INDIGESTION Meropenem 1 gm/ Sodium 100 mls @ 200 mls/hr 05/15/17 16:00 05/16/17 11:25 Chloride IV Infused Q8H ADEBAYO Infusion Clindamycin Phosphate 50 mls @ 100 mls/hr 05/15/17 18:00 05/16/17 13:01 Cleocin 600 Mg/50 Ml IV Infused Q8H ADEBAYO Infusion Sodium Chloride 1,000 mls @ 50 mls/hr 05/15/17 18:00 05/16/17 12:01 Normal Saline 0.9% IV 50 mls/hr .Q20H ADEBAYO Infusion Levothyroxine Sodium 88 mcg 05/16/17 07:00 05/16/17 06:36 Synthroid PO 88 mcg QDAC ADEBAYO Administration - Physical Exam Respiratory: positive: Breath sounds nml Cardiovascular: positive: Regular rate & rhythm Abdomen: positive: Non-tender Impression/Plan - Problem List Problem List: recurrent diverticulitis at splenic flexure responding to iv antibiotics with minimal to no symptoms currently. She is allergic to all oral antibiotics used to treat diverticulitis. Recommend 2 more days of inpatient iv antibiotics. Continue iv antibiotics. Advance diet.
[2017-05-16] MEDS ORDERED: SODIUM CHLORIDE FLUSH 0.9% 10 ML SYRINGE ONE (16:13)
[2017-05-16] MEDS: CALCIUM CARBONATE CHEW 500 MG TABLET PO PRN (16:15)
[2017-05-16] MEDS: SODIUM CHLORIDE 0.9% 1,000 ML IV SCH (17:46)
[2017-05-16] MEDS ORDERED: ACETAMINOPHEN 325 MG TABLET PO PRN (20:12)
[2017-05-17] MEDS ORDERED: SODIUM CHLORIDE FLUSH 0.9% 10 ML SYRINGE ONE ×7 (00:27→23:43)
[2017-05-17] MEDS: MEROPENEM 1 GM in SODIUM CHLORIDE 0.9% MINIBAG 100 ML IV SCH ×4 (00:36→23:48)
[2017-05-17] MEDS: CLINDAMYCIN IV 600 MG/50 ML IV SCH ×3 (01:14→18:25)
[2017-05-17 06:35] LABS: BASOPHILS # (AUTO) 0.1 10^3/uL (0.0-0.1); BASOPHILS % (AUTO) 0.9 %; EOSINOPHILS # (AUTO) 0.1 10^3/uL (0.0-0.7); EOSINOPHILS % (AUTO) 1.6 %; HGB - HEMOGLOBIN 11.2 g/dL (12.0-16.0); LYMPHOCYTES # (AUTO) 1.5 10^3/uL (1.5-3.5); LYMPHOCYTES % (AUTO) 21.6 %; MEAN CORPUSCULAR HEMOGLOBIN 28.9 pg (27.0-31.0); MEAN CORPUSCULAR HGB CONC 33.1 g/dL (32.0-36.0); MEAN CORPUSCULAR VOLUME 87.3 fL (81.0-99.0); MEAN PLATELET VOLUME 8.7 fL (7.9-10.8); MONOCYTES # (AUTO) 0.8 10^3/uL (0.0-1.0); MONOCYTES % (AUTO) 10.6 %; NEUTROPHILS # (AUTO) 4.7 10^3/uL (1.5-6.6); NEUTROPHILS % (AUTO) 65.3 %; PLT - PLATELET COUNT 189 10^3/uL (130-450); RED BLOOD COUNT 3.87 10^6/uL (4.20-5.40); RED CELL DISTRIBUTION WIDTH 13.1 % (12.0-15.0); WHITE BLOOD COUNT 7.2 x10^3/uL (4.8-10.8)
[2017-05-17] MEDS: LEVOTHYROXINE 88 MCG TABLET PO SCH (06:53)
[2017-05-17] MEDS: SODIUM CHLORIDE FLUSH 0.9% 10 ML SYRINGE ONE (08:31)
--- NOTE | 2017-05-17 09:47 | PROVIDER PROGRESS NOTE ---
Subjective - Prog Note Date Prog Note Date: 05/17/17 - Subjective Pt reports feeling: Improved Subjective: Mrs. Becerra's abdominal pain has resolved. She has developed diarrhea since admission, likely in association with her antibiotics. She has remained afebrile with a normal WBC and is tolerating a full liquid diet. Objective - Vital Signs/Intake & Output Reviewed Vital Signs: Yes Vital Signs: Vital Signs x48h Temp Pulse Resp BP Pulse Ox 05/17/17 08:07 37 C 78 18 108/60 93 Intake & Output: Intake & Output 05/14/17 05/15/17 05/16/17 05/17/17 23:59 23:59 23:59 23:59 Intake Total 850 720 Balance 850 720 - Objective General Appearance: positive: No acute distress Respiratory: positive: No respiratory distress Cardiovascular: positive: Regular rate & rhythm Abdomen: positive: Non-tender, No distention Extremities: positive: No pedal edema Neurologic/Psychiatric: positive: Oriented x3 - Lab Results Fish Bones: 05/17/17 06:16 05/15/17 11:49 Other Labs: Lab Results x24hrs 05/17/17 Range/Units 06:16 WBC 7.2 (4.8-10.8) x10^3/uL RBC 3.87 L (4.20-5.40) 10^6/uL Hgb 11.2 L (12.0-16.0) g/dL Hct 33.8 L (37.0-47.0) % MCV 87.3 (81.0-99.0) fL MCH 28.9 (27.0-31.0) pg MCHC 33.1 (32.0-36.0) g/dL RDW 13.1 (12.0-15.0) % Plt Count 189 (130-450) 10^3/uL MPV 8.7 (7.9-10.8) fL Neut # 4.7 (1.5-6.6) 10^3/uL Lymph # 1.5 (1.5-3.5) 10^3/uL [place] # 0.8 (0.0-1.0) 10^3/uL Eos # 0.1 (0.0-0.7) 10^3/uL Baso # 0.1 (0.0-0.1) 10^3/uL Absolute Nucleated RBC 0.00 x10^3/uL Nucleated RBC % 0.0 /100WBC Assessment/Plan - Problem List (1) Diverticulitis Impression: s/p lap assisted sigmoidectomy for recurrent diverticulitis 3 months ago with recurrent abdominal pain and CT findings suggestive of recurrent diverticulitis at the splenic flexure - Will advance to soft diet. - Continue IV antibiotics for an additional day. Patient has extensive antibiotic allergies and is not a candidate for oral antibiotics at this time. Will plan to discharge home tomorrow if she remains symptom free.
--- NOTE | 2017-05-17 09:54 | DISCHARGE SUMMARY ---
Discharge Summary Admit Date: 05/15/17 Discharge Date: 05/18/17 Discharging Provider: Leonela Condition at Discharge: Stable Discharge Disposition: 01 Home, Self Care - DIAGNOSES Admission Diagnoses: Diverticulitis Discharge Diagnoses with Status of Each Condition: Diverticulitis: resolved - HPI History of Present Illness: This is a 76 year old female status post lap assisted sigmoidectomy 3 months ago wh presented to the ER for abdominal pain and near syncope. A CT scan was performed which demonstrated recurrent diverticulitis at the splenic flexure. She was subsequently admitted to the surgical service and placed on IV antibiotics. Her pain resolved. Her WBC remained normal and she remained afebrile. Due to her extensive antibiotic allergies she was not a candidate for oral antibiotics and required inpatient administration of IV antibiotics until discharge. She did develop some diarrhea once started on the IV antibiotics. She was tolerating a soft diet without abdominal pain, nausea or emesis on the day of discharge. - HOSPITAL COURSE Hospital Course: see HPI - ALLERGIES Allergies/Adverse Reactions: Allergies Allergy/AdvReac Type Severity Reaction Status Date / Time metronidazole [From Flagyl] Allergy Severe Unknown Verified 01/30/17 10:38 Metronidazole HCl * Allergy Mild Unknown Verified 01/30/17 10:38 [From Flagyl] cephalexin monohydrate * Allergy Unknown Verified 01/30/17 10:38 [From Keflex] codeine Allergy Respiratory Verified 01/30/17 10:38 hydrocodone bitartrate * Allergy Unknown Verified 01/30/17 10:38 [From Vicodin] meperidine HCl * Allergy Hives Verified 01/30/17 10:38 [From Demerol] moxifloxacin HCl * Allergy Unknown Verified 01/30/17 10:38 [From Avelox] naproxen [From Naprosyn] Allergy Hives Verified 01/30/17 10:38 Penicillins Allergy Unknown Verified 01/30/17 10:38 ciprofloxacin AdvReac Mild vomiting Verified 01/30/17 10:38 - MEDICATIONS Home Medications: Ambulatory Orders Medication Instructions Recorded Confirmed Levothyroxine Sodium 88 mcg PO QDAC 05/15/17 05/15/17 - PHYSICAL EXAM AT DISCHARGE General Appearance: positive: No acute distress Respiratory: positive: No respiratory distress Cardiovascular: positive: Regular rate & rhythm Abdomen: positive: Non-tender, No distention Neurologic/Psychiatric: positive: Oriented x3 - LABS Result Diagrams: 05/17/17 06:16 05/15/17 11:49 - FOLLOW UP Follow Up: Dr. Hairston in 2 weeks. Call for appt. - TIME SPENT Time Spent in Discharge (Minutes): 30
--- NOTE | 2017-05-17 09:57 | Discharge Plan ---
Discharge Plan Disposition: 01 Home, Self Care Condition: Stable Diet: Soft Activity Restrictions: No Restrictions Shower Restrictions: No Driving Restrictions: No Instruction Topics: Diarrhea Additional Instructions or Follow Up instructions: If you continue to have diarrhea you may take Imodium over the counter as needed. If the diarrhea fails to resolve within 2-3 days after discharge contact your surgeon or PCP for further instructions. Drink plenty of water upon discharge to maintain hydration. If you develop recurrent abdominal pain, fever or chills contact Dr. Hairston's office. No Smoking: If you smoke, Please STOP! Call for help. Follow-up with: Cesar Hairston MD [Provider Admit Priv/Credential] - 2 Weeks
[2017-05-17] MEDS: SACCHAROMYCES BOULARDII 250 MG CAPSULE PO SCH ×2 (14:03→17:00)
[2017-05-18] MEDS: CLINDAMYCIN IV 600 MG/50 ML IV SCH ×2 (01:04→09:58)
[2017-05-18] MEDS ORDERED: SODIUM CHLORIDE FLUSH 0.9% 10 ML SYRINGE ONE ×2 (06:06→08:06)
[2017-05-18] MEDS: LEVOTHYROXINE 88 MCG TABLET PO SCH (06:13)
[2017-05-18 07:37] VITALS: BP 115/76
[2017-05-18] MEDS: MEROPENEM 1 GM in SODIUM CHLORIDE 0.9% MINIBAG 100 ML IV SCH (08:08)
[2017-05-18] MEDS: SACCHAROMYCES BOULARDII 250 MG CAPSULE PO SCH (08:55)
== END 2017-05-18 11:22 | disposition home or self-care (01) | DRG 392 ==
LOC: ED 10:39 → OBS 15:23 → OBSVTOIN 05-16 13:22 → MS2 05-16 14:12
PROVIDERS: ADMIT Surgery; ATTEND Surgery
DX: K57.32 Diverticulitis of large intestine without perforation or abscess without bleeding (principal); K52.1 Toxic gastroenteritis and colitis; E03.9 Hypothyroidism, unspecified; T36.8X5A Adverse effect of other systemic antibiotics, initial encounter; H91.90 Unspecified hearing loss, unspecified ear; H54.7 Unspecified visual loss; Y92.230 Patient room in hospital as the place of occurrence of the external cause; Z90.49 Acquired absence of other specified parts of digestive tract; Z79.899 Other long term (current) drug therapy
CPT/HCPCS: 36415; 74022; 74177; 80053; 81001; 81003; 83630; 83690; 85025; 87086; 87493; 93005; 96361; 96365; 96366; 96367; 96375; 99283; 99284

== ENCOUNTER 2017-06-24 06:18 | Day surgery (SDC) | payer MEDICARE ==
[2017-06-24] MEDS ORDERED: LACTATED RINGERS 1,000 ML IV ONE (06:48)
[2017-06-24] MEDS ORDERED: fentaNYL 100 MCG/2 ML VIAL IVP ONE (07:44)
[2017-06-24] MEDS ORDERED: MIDAZOLAM 2 MG/2 ML VIAL IVP ONE (07:44)
[2017-06-24] MEDS ORDERED: GLUCAGON 1 MG/ML VIAL IM ONE (07:44)
[2017-06-24 08:48] VITALS: BP 102/68
== END 2017-06-24 06:19 | disposition home or self-care (01) ==
LOC: SDS 06:18
PROVIDERS: ATTEND Surgery
PROC: 0DBN8ZX Excision of Sigmoid Colon, Via Natural or Artificial Opening Endoscopic, Diagnostic (ICD-10-PCS; 2017-06-24)
PROC: 0DBM8ZX Excision of Descending Colon, Via Natural or Artificial Opening Endoscopic, Diagnostic (ICD-10-PCS; 2017-06-24)
PROC: 0DBP8ZX Excision of Rectum, Via Natural or Artificial Opening Endoscopic, Diagnostic (ICD-10-PCS; principal; 2017-06-24 07:30)
DX: K57.30 Diverticulosis of large intestine without perforation or abscess without bleeding (principal); D12.4 Benign neoplasm of descending colon; K63.5 Polyp of colon
CPT/HCPCS: 45380; 45384; J7120

== ENCOUNTER 2017-09-30 09:23 | Outpatient (CLI) | payer MEDICARE ==
[2017-09-30] MEDS ORDERED: BARIUM SULFATE 135 ML BOTTLE PO ONE (10:33)
[2017-09-30] MEDS ORDERED: BARIUM SULFATE 148 GM POWDER PO ONE (10:33)
--- NOTE | 2017-09-30 10:47 | XRAY Report ---
Procedure Date: 09/30/2017 Accession Number: [id number] / [id number] Procedure: FL - Esophogram CPT Code: FULL RESULT: EXAM: Esophogram DATE: 09/30/2017 10:14 AM CLINICAL HISTORY: DYSPLOYIA HX OF ESOP STRUCTURE COMPARISON: 10/24/2008 TECHNIQUE: Esophagram was performed in the upright and prone positions.. Fluoroscopic exposure time: 2 minutes 26 seconds. Number of fluoroscopic images: 22. FINDINGS: Swallowing Mechanism: Normal. No tracheal aspiration or penetration. Esophageal Motility: Presbyesophagus, with delayed clearance. Mucosa: Normal. No ulcerations or masses. Gastroesophageal Junction: Normal. No hernia, stricture, or significant reflux. The previously noted small sliding hiatal hernia was not reproduced on today's examination. Other: A 13 mm barium pill passed slowly through the esophagus and into the stomach. No fixed stricturing. IMPRESSION: Presbyesophagus. No evidence of mass, ulceration, or stricturing. [facility]
== END 2017-09-30 09:24 | disposition home or self-care (01) ==
LOC: DI 09:23
PROVIDERS: ATTEND Surgery
DX: R13.10 Dysphagia, unspecified (principal); K22.8 Other specified diseases of esophagus
CPT/HCPCS: 74220; A9270

== ENCOUNTER 2018-01-29 08:58 | Outpatient (CLI) | payer MEDICARE | END 2018-01-29 08:59 | disposition home or self-care (01) | LOC: NS 08:58 | PROVIDERS: ATTEND Internal Medicine | DX: Z71.3 Dietary counseling and surveillance (principal); R19.7 Diarrhea, unspecified; K91.2 Postsurgical malabsorption, not elsewhere classified; Z68.24 Body mass index [BMI] 24.0-24.9, adult | CPT/HCPCS: 97802 ==

== ENCOUNTER 2018-02-05 10:12 | Outpatient (CLI) | payer MEDICARE ==
--- NOTE | 2018-02-06 08:47 | Mammography Report ---
Reason: ANNUAL SCREENING Procedure Date: 02/05/2018 Accession Number: [id number] / [id number] Procedure: SEA - Screening Mammo w/Ahmet CPT Code: FULL RESULT: EXAM: Screening Mammo w/Ahmet DATE: 02/05/2018 10:47 AM CLINICAL HISTORY: Routine screening. No personal or family history of breast cancer. Recent history of benign biopsy left. TECHNIQUE: Bilateral CC and MLO views were obtained. COMPARISON: 10/10/2016 through 10/22/2012 FINDINGS: The breasts demonstrate scattered fibroglandular densities bilaterally. Stable biopsy marker in the subareolar left breast following benign and concordant biopsy. There are no suspicious masses, calcifications or areas of distortion. IMPRESSION: Benign findings RECOMMENDATION: Routine annual screening unless otherwise clinically indicated. BI-RADS CATEGORY 2: Benign findings STANDARD QUALIFYING STATEMENTS: 1. This examination was not reviewed with the aid of Computer-Aided Detection (CAD). 2. A negative or benign imaging report should not preclude biopsy if clinically suspicious findings are present. 3. Dense breasts may obscure an underlying neoplasm. 4. This examination was reviewed with the aid of 3D breast imaging (tomosynthesis).
== END 2018-02-05 10:13 | disposition home or self-care (01) ==
LOC: DI 10:12
PROVIDERS: ATTEND Internal Medicine
DX: Z12.31 Encounter for screening mammogram for malignant neoplasm of breast (principal)
CPT/HCPCS: 77063; 77067

== ENCOUNTER 2018-02-26 12:56 | Outpatient (CLI) | payer MEDICARE | END 2018-02-26 12:57 | disposition home or self-care (01) | LOC: NS 12:56 | PROVIDERS: ATTEND Internal Medicine | DX: Z71.3 Dietary counseling and surveillance (principal); K91.2 Postsurgical malabsorption, not elsewhere classified; R19.7 Diarrhea, unspecified | CPT/HCPCS: 97803 ==

== ENCOUNTER 2018-08-03 19:14 | Outpatient (CLI) | payer MEDICARE ==
--- NOTE | 2018-08-03 20:04 | Ultrasound Report ---
Reason: R LEG PAIN AFTER DRIVING Procedure Date: 08/03/2018 Accession Number: [id number] / [id number] Procedure: US - Duplex Ext Veins Right CPT Code: FULL RESULT: EXAM: RIGHT LOWER EXTREMITY VENOUS ULTRASOUND EXAM DATE: 08/03/2018 07:51 PM. CLINICAL HISTORY: Right lower extremity pain following a long car ride. COMPARISON: None. TECHNIQUE: Real-time sonographic vascular imaging was performed by the merchandise carrier through the lower extremity utilizing both color-flow and Doppler spectral analysis. Multiple customer service representative static images were saved for review. FINDINGS: Common Femoral Vein (CFV): Normal. CFV-GSV Junction: Normal. Profunda Femoral Vein (PFV): Normal. Femoral Vein (FV) Prox: Normal. Femoral Vein (FV) Mid: Normal. Femoral Vein (FV) Dist: Normal. Popliteal Vein: Normal. Posterior Tibial Veins: Normal. Peroneal Veins: Normal. Contralateral Side CFV: Normal. Other: None. IMPRESSION: No evidence for deep venous thrombosis. [facility] The call report notification system was initiated by Dr. Ajay Son at 08:02 PM on 08/03/2018.
== END 2018-08-03 19:15 | disposition home or self-care (01) ==
LOC: DI 19:14
PROVIDERS: ATTEND Internal Medicine
DX: M79.604 Pain in right leg (principal)

== ENCOUNTER 2019-01-27 08:38 | Outpatient (CLI) | payer MEDICARE ==
--- NOTE | 2019-02-01 02:37 | Ultrasound Report ---
Reason: RUQ PAIN Procedure Date: 01/27/2019 Accession Number: [id number] / [id number] Procedure: US - Abdomen Limited CPT Code: Final Report FULL RESULT: EXAM: ABDOMEN ULTRASOUND LIMITED, RUQ EXAM DATE: 01/27/2019 09:14 AM. CLINICAL HISTORY: RUQ PAIN. COMPARISON: ABDOMEN/PELVIS W/ 05/15/2017 12:45 PM. TECHNIQUE: Real-time scanning was performed with static images obtained. FINDINGS: Liver: Echogenic. Left lobe cyst measuring 0.8 cm. 16.8 cm. Main portal vein flow: Hepatopetal. Gallbladder: Status post cholecystectomy. Biliary System: CBD measures 13.9 mm. Intrahepatic biliary dilatation is seen. Other: Right kidney measures 9.9 cm and appears normal. Inferior vena cava is patent where seen. IMPRESSION: 1. Status post cholecystectomy with biliary dilatation. Common duct measures up to 13.9 mm. This is similar compared with the prior CT. 2. Fatty liver. [facility]
== END 2019-01-27 08:39 | disposition home or self-care (01) ==
LOC: DI 08:38
PROVIDERS: ATTEND Internal Medicine
DX: K83.8 Other specified diseases of biliary tract (principal); K76.0 Fatty (change of) liver, not elsewhere classified
CPT/HCPCS: 76705

== ENCOUNTER 2019-03-11 06:13 | Day surgery (SDC) | payer MEDICARE ==
[2019-03-11] MEDS ORDERED: LACTATED RINGERS 1,000 ML IV ONE (06:25)
[2019-03-11] MEDS ORDERED: fentaNYL 100 MCG/2 ML VIAL IVP ONE (07:28)
[2019-03-11] MEDS ORDERED: MIDAZOLAM 2 MG/2 ML VIAL IVP ONE (07:28)
[2019-03-11 08:37] VITALS: BP 135/78
== END 2019-03-11 06:14 | disposition home or self-care (01) ==
LOC: SDS 06:13
PROVIDERS: ATTEND Surgery
PROC: 0DB68ZZ Excision of Stomach, Via Natural or Artificial Opening Endoscopic (ICD-10-PCS; 2019-03-11)
PROC: 0DB48ZX Excision of Esophagogastric Junction, Via Natural or Artificial Opening Endoscopic, Diagnostic (ICD-10-PCS; principal; 2019-03-11 07:30)
DX: K21.9 Gastro-esophageal reflux disease without esophagitis (principal); K31.7 Polyp of stomach and duodenum; K22.8 Other specified diseases of esophagus; R13.10 Dysphagia, unspecified; Z87.891 Personal history of nicotine dependence; Z87.19 Personal history of other diseases of the digestive system; Z79.899 Other long term (current) drug therapy
CPT/HCPCS: 43239; J7120

== ENCOUNTER 2019-06-15 11:46 | Outpatient (CLI) | payer BC, MEDICARE ==
[2019-06-15 12:30] LABS: BILIRUBIN,URINE NEGATIVE (NEGATIVE); GLUCOSE, URINE (UA) NEGATIVE (NEGATIVE); KETONES,URINE (UA) NEGATIVE (NEGATIVE); LEUKOCYTE ESTERASE, URINE NEGATIVE (NEGATIVE); NITRITE,URINE NEGATIVE (NEGATIVE); OCCULT BLOOD,URINE NEGATIVE (NEGATIVE); PH,URINE 5.5 PH (5.0-7.5); PROTEIN,URINE NEGATIVE (NEGATIVE); UROBILINOGEN,URINE 0.2 (NORMAL) E.U./dL (NORMAL)
[2019-06-15 12:31] LABS: CLARITY,URINE CLEAR (CLEAR)
== END 2019-06-15 11:47 | disposition home or self-care (01) ==
LOC: LAB 11:46
PROVIDERS: ATTEND Internal Medicine
DX: R50.9 Fever, unspecified (principal)
CPT/HCPCS: 36415; 81001; 81003; 87040; 87086

== ENCOUNTER 2019-10-11 09:32 | Outpatient (CLI) | payer BC | END 2019-10-11 09:33 | disposition home or self-care (01) | LOC: LAB 09:32 → COV 09:33 | PROVIDERS: ATTEND Ophthalmology | DX: Z01.812 Encounter for preprocedural laboratory examination (principal); Z11.59 Encounter for screening for other viral diseases ==

== ENCOUNTER 2020-03-08 09:08 | Outpatient (CLI) | payer BC ==
[2020-03-08 10:04] LABS: BASOPHILS # (AUTO) 0.1 10^3/uL (0.0-0.1); BASOPHILS % (AUTO) 0.7 %; EOSINOPHILS # (AUTO) 0.1 10^3/uL (0.0-0.7); HGB - HEMOGLOBIN 13.6 g/dL (12.0-16.0); LYMPHOCYTES # (AUTO) 2.3 10^3/uL (1.5-3.5); LYMPHOCYTES % (AUTO) 33.9 %; MEAN CORPUSCULAR HEMOGLOBIN 29.8 pg (27.0-31.0); MEAN CORPUSCULAR HGB CONC 33.2 g/dL (32.0-36.0); MEAN CORPUSCULAR VOLUME 89.7 fL (81.0-99.0); MEAN PLATELET VOLUME 10.5 fL (7.9-10.8); MONOCYTES # (AUTO) 0.5 10^3/uL (0.0-1.0); MONOCYTES % (AUTO) 6.8 %; NEUTROPHILS # (AUTO) 3.9 10^3/uL (1.5-6.6); NEUTROPHILS % (AUTO) 57.5 %; PLT - PLATELET COUNT 251 10^3/uL (130-450); RED BLOOD COUNT 4.57 10^6/uL (4.20-5.40); RED CELL DISTRIBUTION WIDTH 11.9 % (12.0-15.0); WHITE BLOOD COUNT 6.7 x10^3/uL (4.8-10.8)
[2020-03-08 10:26] LABS: THYROID STIMULATING HORMONE 0.65 uIU/mL (0.34-5.60)
[2020-03-08 11:03] LABS: ALBUMIN 4.4 g/dL (3.2-5.5); ALBUMIN/GLOBULIN RATIO 1.4 (1.0-2.2); BILIRUBIN,TOTAL 0.9 mg/dL (0.2-1.0); CALCIUM 9.7 mg/dL (8.5-10.3); CREATININE 0.9 mg/dL (0.4-1.0); PHOSPHORUS 3.5 mg/dL (2.5-4.6); TOTAL PROTEIN 7.5 g/dL (6.7-8.2)
[2020-03-10 15:22] LABS: CHOL/HDL RATIO 6.5 (<4.4); CHOLESTEROL 294 mg/dL; HDL CHOLESTEROL 45 mg/dL; LDL CHOLESTEROL,CALCULATED 188 mg/dL; LDL/HDL RATIO 4.2 (<4.4); VLDL CHOLESTEROL 61 mg/dL
[2020-03-10 19:40] LABS: HEMOGLOBIN A1c% 6.2 % (4.27-6.07)
== END 2020-03-08 09:09 | disposition home or self-care (01) ==
LOC: LAB 09:08
PROVIDERS: ATTEND Internal Medicine
DX: Z13.6 Encounter for screening for cardiovascular disorders (principal); R05 Cough; K21.9 Gastro-esophageal reflux disease without esophagitis; R21 Rash and other nonspecific skin eruption; E78.5 Hyperlipidemia, unspecified; E03.9 Hypothyroidism, unspecified; M81.0 Age-related osteoporosis without current pathological fracture; R19.4 Change in bowel habit; M19.90 Unspecified osteoarthritis, unspecified site; Z79.899 Other long term (current) drug therapy; R06.2 Wheezing; R73.01 Impaired fasting glucose
CPT/HCPCS: 36415; 80053; 80061; 80076; 82306; 82607; 83036; 83721; 83880; 84100; 84443; 85025

== ENCOUNTER 2020-05-10 15:27 | Outpatient (CLI) | payer MEDICARE ==
--- NOTE | 2020-05-11 09:32 | Mammography Report ---
BILATERAL DIGITAL SCREENING MAMMOGRAM 3D/2D: 05/10/2020 CLINICAL: Baseline exam. Comparison is made to exams dated: 02/05/2018 mammogram, 10/23/2016 ultrasound biopsy, 10/23/2016 mammo gram, and 10/10/2016 mammogram - [facility]. The tissue of both breasts is predomin antly fatty. No significant masses, calcifications, or other findings are seen in either breast. There has been no significant interval change. IMPRESSION: NEGATIVE There is no mammographic evidence of malignancy. A 1 year screening mammogram is recommended. This exam was interpreted at Station ID: [id number]. NOTE: For mammograms, a report in lay terms will be sent to the patient. Approximately 15% of breast malignancies will not be visualized mammographically. In the management of a palpable breast mass, a negative mammogram must not discourage biopsy of a clinically suspicious lesion. Electronically Signed By: Charlie Meyers acr/penrad:05/10/2020 16:29:13 ACR BI-RADS Category 1: Negative 3341F PARENCHYMAL PATTERN: (F) - The breast(s) demonstrate(s) diffuse fatty replacement. BI-RADS CATEGORY: (1) - 1 RECOMMENDATION: (ANNUAL) - Recommend routine annual screening mammography. [id number] 1 year screening LATERALITY: (B)
== END 2020-05-10 15:28 | disposition home or self-care (01) ==
LOC: DI 15:27
PROVIDERS: ATTEND Internal Medicine
DX: Z12.31 Encounter for screening mammogram for malignant neoplasm of breast (principal)

== ENCOUNTER 2020-10-24 15:37 | Outpatient (CLI) | payer MEDICARE ==
--- NOTE | 2020-10-24 17:45 | XRAY Report ---
PROCEDURE: Foot 3 View LT INDICATIONS: LT FOOT PAIN TECHNIQUE: 3 views of the foot were acquired. COMPARISON: None FINDINGS: Bones: No fractures or dislocations. No suspicious bony lesions. Soft tissues: No tibiotalar joint effusion. Achilles tendon appears normal. IMPRESSION: Normal left foot. Reviewed by: Charlie Meyers on 10/24/2020 5:44 PM PDT Approved by: Charlie Meyers on 10/24/2020 5:44 PM PDT Station ID: [id number]
== END 2020-10-24 15:38 | disposition home or self-care (01) ==
LOC: DI 15:37
PROVIDERS: ATTEND Internal Medicine
DX: M79.672 Pain in left foot (principal)

== ENCOUNTER 2021-12-24 18:44 | Outpatient (CLI) | payer MEDICARE | END 2021-12-24 18:45 | disposition home or self-care (01) | LOC: LAB.R 18:44 | PROVIDERS: ATTEND Internal Medicine | DX: K20.90 Esophagitis, unspecified without bleeding (principal); R06.09 Other forms of dyspnea | CPT/HCPCS: 83880 ==

== ENCOUNTER 2022-06-12 14:01 | Outpatient (CLI) | payer MEDICARE ==
--- NOTE | 2022-06-13 10:20 | Mammography Report ---
BILATERAL DIGITAL SCREENING MAMMOGRAM 3D/2D: 06/12/2022 CLINICAL: Routine screening. Comparison is made to exams dated: 05/10/2020 mammogram, 02/05/2018 mammogram, 10/23/2016 mammogram, mammogram, 01/04/2016 mammogram, and 11/26/2013 mammogram - [facility]. There are scattered areas of fibroglandular density in both breasts (category b / 25%-50% glandular t issue). No significant masses, calcifications, or other findings are seen in either breast. There has been no significant interval change. IMPRESSION: NEGATIVE There is no mammographic evidence of malignancy. A 1 year screening mammogram is recommended. Based on the Tyrer Cuzick model (a risk assessment model) the patients lifetime risk is 1.7% and her 10 year risk is 0.0%. According to the ACR, ACS, and NCCN guidelines, an annual breast MRI exam carmel g with mammogram is recommended if the patients lifetime risk is 20% or greater. This exam was interpreted at Station ID: [id number]. NOTE: For mammograms, a report in lay terms will be sent to the patient. Approximately 15% of breast malignancies will not be visualized mammographically. In the management of a palpable breast mass, a negative mammogram must not discourage biopsy of a clinically suspicious lesion. Electronically Signed By: Nic fry/ashwin:06/12/2022 14:46:21 letter sent: No_Letter ACR BI-RADS Category 1: Negative 3341F PARENCHYMAL PATTERN: (A) - The breast(s) demonstrate(s) scattered fibroglandular densities. BI-RADS CATEGORY: (1) - 1 Mammogram [id number] 1 year screening LATERALITY: (B)
== END 2022-06-12 14:02 | disposition home or self-care (01) ==
LOC: DI 14:01
PROVIDERS: ATTEND Internal Medicine
DX: Z12.31 Encounter for screening mammogram for malignant neoplasm of breast (principal)

== ENCOUNTER 2022-08-13 10:59 | Emergency (ER) | payer MEDICARE ==
[2022-08-13 11:12] VITALS: BP 154/67
--- NOTE | 2022-08-13 12:34 | ED Physician Documentation ---
PD HPI HEAD INJURY - Stated complaint Stated Complaint: HEAD INJ - Chief complaint Chief Complaint: Trauma Hd/Nk - History obtained from History obtained from: Patient - Additional information Additional information: Patient is a 81-year-old female presenting for evaluation of head injury that occurred around 10:00 this morning. Patient was outside near a [place] when she tripped and fell hitting her head. She denies LOC. She does not take a blood thinner. She has a small laceration to her left temporal region. She is unsure of her last tetanus. She denies pain or injury elsewhere. Review of Systems Constitutional: denies: Fever Cardiac: denies: Chest pain / pressure Respiratory: denies: Dyspnea GI: denies: Abdominal Pain Musculoskeletal: denies: Neck pain, Back pain Neurologic: reports: Head injury. 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 HEENT: Chronic vision loss Psych: None Musculoskeletal: None Derm: None - Past Surgical History Past Surgical History: Yes General: Cholecystectomy, Appendectomy, Bowel surgery, Colonoscopy /SLATE SPLITTING SUPERVISOR: Dilation and currettage, Tubal ligation, LEEP (Cervical surgery) HEENT: Tonsil/Adenoidectomy - Present Medications Home Medications: Ambulatory Orders Medication Instructions Recorded Confirmed Levothyroxine Sodium 100 mcg PO QDAC 05/15/17 08/13/22 - Allergies Allergies/Adverse Reactions: Allergies Allergy/AdvReac Type Severity Reaction Status Date / Time metronidazole [From Flagyl] Allergy Severe Unknown Verified 08/13/22 11:11 cephalexin monohydrate * Allergy Unknown Verified 08/13/22 11:11 [From Keflex] codeine Allergy Respiratory Verified 08/13/22 11:11 hydrocodone bitartrate * Allergy Nausea Verified 08/13/22 11:11 [From Vicodin] meperidine HCl * Allergy Hives Verified 08/13/22 11:11 [From Demerol] moxifloxacin HCl * Allergy Unknown Verified 08/13/22 11:11 [From Avelox] naproxen [From Naprosyn] Allergy Hives Verified 08/13/22 11:11 Penicillins Allergy Rash Verified 08/13/22 11:11 ciprofloxacin AdvReac Mild vomiting Verified 08/13/22 11:11 - Social History Does the pt smoke?: No Smoking Status: Never smoker Does the pt drink ETOH?: Yes Does the pt have substance abuse?: No - Immunizations Immunizations are current?: Yes - POLST Patient has POLST: No POLST Status: DNR (While she would like all measures to save her life such as emergency surgery, intubation for pneumonia and respiratory failure, blood transfusion products, antibiotics, ICU care, she does not want to be resuscitated in the event of a cardiopulmonary arrest that occurs after all the above been done) PD ED PE NORMAL - General General: Alert and oriented X 3, No acute distress, Well developed/nourished - HEENT HEENT: PERRL, EOMI, Moist mucous membranes, Pharynx benign, Other (0.5 cm laceration to right confucianism) - Neck Neck: Supple, no meningeal sign, No bony TTP, C-Spine cleared by NEXUS criteria - Cardiac Cardiac: RRR, No murmur - Respiratory Respiratory: No respiratory distress, Clear bilaterally - Abdomen Abdomen: Soft, Non tender, Non distended - Back Back: No spinal TTP - Derm Derm: Warm and dry - Extremities Extremities: Normal ROM s pain, No edema, Other (Abrasion to right posterior shoulder) - Neuro Neuro: Alert and oriented X 3, cutter and paster press clippings 2-12 intact, No motor deficit, No sensory deficit, Normal speech Results - Vitals Vitals: Vital Signs - 24 hr 08/13/22 11:08 Temperature 36.6 C Heart Rate 71 Respiratory 16 Rate Blood Pressure 154/67 H O2 Saturation 99 Oxygen O2 Source Room air Procedures - Laceration (location) R forehead Length in cm: 0.5 Wound type: Linear, Superficial, Clean Wound preparation: Hibiclens, Irrigated copiously NS Skin layer closure: Steri strips Other: Patient tolerated well, No complications, Neurovascular intact, Tetanus UTD PD Medical Decision Making - ED course Complexity details: reviewed results, re-evaluated patient ED course: Patient presenting for evaluation of a head injury after a trip and fall. She is not on a blood thinner. Her neuro exam is normal. Due to her age a CT of her head was obtained. Her C-spine was cleared by Nexus criteria. I reviewed her CT head and I do not see signs of an intracranial hemorrhage. She has a sma ll superficial wound that was cleaned and closed with a Steri-Strip.Her tetanus is up-to-date. Patient has an abrasion to right posterior shoulder but she declined an x-ray.She has good range of motion of the shoulder joint. She is counseled on need for close follow-up as well as return precautions for any new or worsening symptoms. Departure - Departure Disposition: 01 Home, Self Care Clinical Impression: Head injury, Simple laceration of face Condition: Stable Instructions: ED Head Injury Closed, ED Laceration Facial Sutr Tape Comments: Your head CT does not show any injuries from your fall. You have a small wound to the right confucianism region. This does not require stitches. Please keep the wound clean and dry. If you develop any worsening symptoms such as pain in a new area then please return to the emergency department. Discharge Date/Time: 08/13/22 14:06
--- NOTE | 2022-08-13 13:07 | CT Report ---
PROCEDURE: HEAD WO INDICATIONS: head injury TECHNIQUE: Noncontrast 4.5 mm thick angled axial sections acquired from the foramen magnum to the vertex. For r adiation dose reduction, the following was used: automated exposure control, adjustment of mA and/or kV according to patient size. COMPARISON: None. FINDINGS: Image quality: Good CSF spaces: Basal cisterns are patent. Lateral ventricles are symmetric. Volume: Vascular calcifications. Periventricular white matter disease is commonly seen with chronic m icroangiopathy. Volume loss is present. These findings are mild. Brain: No intracranial hemorrhage. Delcid-white differentiation is grossly maintained. Craniofacial structures: No displaced fracture. Sinuses are clear. Orbits are intact. IMPRESSION: No acute intracranial abnormality. Reviewed by: Nic Lemus MD on 08/13/2022 1:05 PM PDT Approved by: Nic Lemus MD on 08/13/2022 1:05 PM PDT Station ID: [id number]
[2022-08-13] MEDS: TETANUS/DIPHTHERIA/PERTUSSIS 0.5 ML SYRINGE IM ONE (13:13)
== END 2022-08-13 14:06 | disposition home or self-care (01) ==
LOC: ED 10:59
DX: S01.81XA Laceration without foreign body of other part of head, initial encounter (principal); W01.0XXA Fall on same level from slipping, tripping and stumbling without subsequent striking against object, initial encounter; I48.91 Unspecified atrial fibrillation; Z66 Do not resuscitate; Z23 Encounter for immunization; Z71.85 Encounter for immunization safety counseling
CPT/HCPCS: 90471; 99283; 99284

== ENCOUNTER 2022-08-14 07:25 | Day surgery (SDC) | payer MEDICARE ==
[2022-08-14] MEDS: LACTATED RINGERS 1,000 ML IV ONE (08:04)
--- NOTE | 2022-08-14 08:23 | ANESTHESIA ---
Pre-Anesthesia VS, & Labs - Diagnosis screening - Procedure colonoscopy Vital Signs: Temp Pulse Resp BP Pulse Ox O2 Flow Rate 36.1 C L 86 18 133/96 H 97 08/14/22 07:41 08/14/22 07:41 08/14/22 07:41 08/14/22 07:41 08/14/22 07:41 Height: 5 ft 2.5 in Weight (kg): 60.6 kg Body Mass Index: 24.0 BMI Classification: Normal - NPO Other (prep as directed) - Is Patient ?: No Home Medications and Allergies Levothyroxine Sodium 100 mcg PO QDAC 05/15/17 Allergies/Adverse Reactions: Allergies Allergy/AdvReac Type Severity Reaction Status Date / Time metronidazole [From Flagyl] Allergy Severe Unknown Verified 08/13/22 11:11 cephalexin monohydrate * Allergy Unknown Verified 08/13/22 11:11 [From Keflex] codeine Allergy Respiratory Verified 08/13/22 11:11 hydrocodone bitartrate * Allergy Nausea Verified 08/13/22 11:11 [From Vicodin] meperidine HCl * Allergy Hives Verified 08/13/22 11:11 [From Demerol] moxifloxacin HCl * Allergy Unknown Verified 08/13/22 11:11 [From Avelox] naproxen [From Naprosyn] Allergy Hives Verified 08/13/22 11:11 Penicillins Allergy Rash Verified 08/13/22 11:11 ciprofloxacin AdvReac Mild vomiting Verified 08/13/22 11:11 Anes History & Medical History - Anesthetic History Anesthesia Complications: reports: No previous complications - Medical History Cardiovascular: reports: Atrial fibrillation Pulmonary: reports: None Gastrointestinal: reports: Cholelithiasis Urinary: reports: None Neuro: reports: None Musculoskeletal: reports: None Endocrine/Autoimmune: reports: HyPOthyroidism Blood Disorders: reports: None Skin: reports: None Smoking Status: Never smoker History of Cancer?: No - Surgical History General: reports: Cholecystectomy, Appendectomy, Bowel surgery, Colonoscopy Eyes Ears Nose Throat (EENT): reports: Tonsil/Adenoidectomy Gynecologic: reports: Dilation and currettage, Tubal ligation, LEEP (Cervical surgery) Exam General: Alert, Oriented x3, Cooperative Dental: WNL Mouth Opening: Greater than 4 Fingerbreadths Neck Mobility: Normal Mallampati classification: II Respiratory: Lungs clear Cardiovascular: Regular rate, Normal S1, Normal S2 Plan Anesthesia Type: Total IV Consent for Procedure(s) Verified and Reviewed: Yes Code Status: Attempt Resuscitation ASA classification: 2-Mild systemic disease Is this case an emergency?: No
[2022-08-14] MEDS ORDERED: PROPOFOL 500 MG/50 ML 500 MG/50 ML VIAL ONE (08:34)
[2022-08-14] MEDS: LACTATED RINGERS 700 ML IV ONE (09:07)
--- NOTE | 2022-08-14 09:18 | ANESTHESIA POST OP EVALUATION ---
Anesthesia Post Eval - Post Anesthesia Eval Vitals: Last Vital Signs Temp 36.2 C L 08/14/22 09:07 Pulse 76 08/14/22 09:13 Resp 14 08/14/22 09:13 BP 99/60 08/14/22 09:13 Pulse Ox 98 08/14/22 09:13 O2 Flow Rate CV Function Including HR & BP: Stable Pain Control: Satisfactory Nausea & Vomiting: Negative Mental Status: Baseline Respiratory Status: Airway Patent Hydration Status: Satisfactory Anesthesia Complications: None
[2022-08-14 09:29] VITALS: BP 117/72
== END 2022-08-14 07:26 | disposition home or self-care (01) ==
LOC: SDS 07:25
PROVIDERS: ATTEND Surgery
PROC: 0DBL8ZZ Excision of Transverse Colon, Via Natural or Artificial Opening Endoscopic (ICD-10-PCS; principal; 2022-08-14 08:30)
DX: Z12.11 Encounter for screening for malignant neoplasm of colon (principal); R19.5 Other fecal abnormalities; K63.5 Polyp of colon; K57.30 Diverticulosis of large intestine without perforation or abscess without bleeding; K64.2 Third degree hemorrhoids; K64.4 Residual hemorrhoidal skin tags; Z98.0 Intestinal bypass and anastomosis status; I48.91 Unspecified atrial fibrillation
CPT/HCPCS: 45380; J7120

== ENCOUNTER 2023-03-07 10:01 | Emergency (ER) | payer MEDICARE ==
[2023-03-07 10:23] VITALS: BP 159/99; O2SAT 99
--- NOTE | 2023-03-07 11:21 | XRAY Report ---
PROCEDURE: Ankle 3 View LT INDICATIONS: Trauma TECHNIQUE: 3 views of the ankle were acquired. COMPARISON: X-ray left foot, 10/24/2020. FINDINGS: Bones: There is nondisplaced lateral malleolar fracture with associated soft tissue swelling. No dis locations. Ankle mortise is normally aligned. No suspicious bony lesions. Soft tissues: Trace tibiotalar joint effusion. Achilles tendon appears normal. IMPRESSION: Lateral malleolus fracture. Reviewed by: Glenn Morales MD on 03/07/2023 11:20 AM PST Approved by: Glenn Morales MD on 03/07/2023 11:20 AM PST Station ID: [id number]
--- NOTE | 2023-03-07 12:40 | ED Physician Documentation ---
PD HPI LOWER EXT INJURY - Stated complaint Stated Complaint: LT ANKLE INJ - Chief complaint Chief Complaint: Trauma Ext - History obtained from History obtained from: Patient - Additional information Additional information: She was sitting at her computer desk for a long time with her legs crossed and when she got up her leg was asleep and it collapsed on her and now she has severe pain of the lateral ankle. No other injuries. Declines pain medication. 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 HEENT: Chronic vision loss Psych: None Musculoskeletal: None Derm: None - Past Surgical History Past Surgical History: Yes General: Cholecystectomy, Appendectomy, Bowel surgery, Colonoscopy /MANAGER OPERATING: Dilation and currettage, Tubal ligation, LEEP (Cervical surgery) HEENT: Tonsil/Adenoidectomy - Present Medications Home Medications: Ambulatory Orders Medication Instructions Recorded Confirmed Levothyroxine Sodium 100 mcg PO QDAC 05/15/17 08/14/22 Knee Scooter 1 unit .ROUTE ONCE #1 03/07/23 - Allergies Allergies/Adverse Reactions: Allergies Allergy/AdvReac Type Severity Reaction Status Date / Time metronidazole [From Flagyl] Allergy Severe Unknown Verified 08/13/22 11:11 cephalexin monohydrate * Allergy Unknown Verified 08/13/22 11:11 [From Keflex] codeine Allergy Respiratory Verified 08/13/22 11:11 hydrocodone bitartrate * Allergy Nausea Verified 08/13/22 11:11 [From Vicodin] meperidine HCl * Allergy Hives Verified 08/13/22 11:11 [From Demerol] moxifloxacin HCl * Allergy Unknown Verified 08/13/22 11:11 [From Avelox] naproxen [From Naprosyn] Allergy Hives Verified 08/13/22 11:11 Penicillins Allergy Rash Verified 08/13/22 11:11 ciprofloxacin AdvReac Mild vomiting Verified 08/13/22 11:11 - Social History Does the pt smoke?: No Smoking Status: Never smoker Does the pt drink ETOH?: Yes Does the pt have substance abuse?: No - Immunizations Immunizations are current?: Yes - POLST Patient has POLST: No POLST Status: DNR (While she would like all measures to save her life such as emergency surgery, intubation for pneumonia and respiratory failure, blood transfusion products, antibiotics, ICU care, she does not want to be resuscitated in the event of a cardiopulmonary arrest that occurs after all the above been done) PD ED PE NORMAL - Vitals Vital signs reviewed: Yes - General General: Alert and oriented X 3, No acute distress - Extremities Extremities: Other (Tender over the left lateral malleolus without proximal fibular tenderness or foot tenderness.) - Neuro Neuro: Alert and oriented X 3, Normal speech Results - Vitals Vitals: Vital Signs - 24 hr 03/07/23 10:09 Temperature 36.8 C Heart Rate 86 Respiratory 14 Rate Blood Pressure 159/99 H O2 Saturation 99 Oxygen O2 Source Room air - Rads (name of study) Left ankle x-ray demonstrating very distal fibular fracture Relevant Findings:: Final report received, EMP independent interpretation of test PD Medical Decision Making - ED course ED course: The fracture seems very minor and distal. Given her age I do not think crutches would be appropriate and she is placed in a boot and on a walker with a knee scooter prescription. Departure - Departure Disposition: 01 Home, Self Care Clinical Impression: Left fibular fracture Qualifiers: Encounter type: initial encounter Fibula location: distal Fracture type: closed Fracture morphology: unspecified fracture morphology Qualified Code(s): S82.832A - Other fracture of upper and lower end of left fibula, initial encounter for closed fracture Condition: Good Record reviewed to determine appropriate education?: Yes Instructions: ED Fx Lower Ext Follow-Up: [facility] [Provider Group] Prescriptions: Knee Scooter 1 unit .ROUTE ONCE #1 Comments: As discussed, the fracture seems fairly minor and distal so I think it is okay for you to walk and bear weight on it gingerly once you are able to. You should follow-up with our orthopedist for recheck in about a week, call his office today or Friday for an appointment. The meantime you can use Tylenol, ibuprofen, or Aleve as needed for the pain. Elevate and ice as well.
== END 2023-03-07 14:00 | disposition home or self-care (01) ==
LOC: ED 10:01
DX: S82.832A Other fracture of upper and lower end of left fibula, initial encounter for closed fracture (principal); X58.XXXA Exposure to other specified factors, initial encounter; Z66 Do not resuscitate; I48.91 Unspecified atrial fibrillation; E03.9 Hypothyroidism, unspecified; Z79.899 Other long term (current) drug therapy
CPT/HCPCS: 99283; 99284

== ENCOUNTER 2023-03-17 08:00 | Outpatient (CLI) | payer MEDICARE ==
--- NOTE | 2023-03-17 15:49 | XRAY Report ---
PROCEDURE: Ankle 3 View LT INDICATIONS: LEFT ANKLE PAIN TECHNIQUE: 3 views of the ankle were acquired. COMPARISON: 03/07/2023. FINDINGS: Bones: Stable appearance of transversely oriented lateral malleolus fracture of the left distal fibu la. Persistent but decreased overlying soft tissue swelling. Ankle mortise is normally aligned. No s uspicious bony lesions. Soft tissues: No tibiotalar joint effusion. Achilles tendon appears normal. IMPRESSION: Stable alignment of lateral malleolus fracture. Reviewed by: Seth oBnilla MD on 03/17/2023 3:47 PM PST Approved by: Seth Bonilla MD on 03/17/2023 3:47 PM PST Station ID: [id number]
== END 2023-03-17 23:59 | disposition home or self-care (01) ==
LOC: DI.WOS 08:00
PROVIDERS: ATTEND Physician Assistant Surgical
DX: S82.62XD Displaced fracture of lateral malleolus of left fibula, subsequent encounter for closed fracture with routine healing (principal)

== ENCOUNTER 2023-04-21 08:00 | Outpatient (CLI) | payer MEDICARE ==
--- NOTE | 2023-04-21 16:38 | XRAY Report ---
PROCEDURE: Ankle 3 View LT INDICATIONS: LEFT ANKLE FRACTURE TECHNIQUE: 3 views of the ankle were acquired. COMPARISON: X-ray ankle 03/17/2023 FINDINGS: Bones: Stable alignment of previously identified distal fibular fracture. There has been mild interv al healing with slightly less prominent appearance of fracture lucency. Soft tissues: No tibiotalar joint effusion. Achilles tendon appears normal. IMPRESSION: Mild interval healing with stable alignment of distal fibular fracture. Reviewed by: Livier Jonas MD on 04/21/2023 4:36 PM [facility] Approved by: Livier Jonas MD on 04/21/2023 4:36 PM [facility] Station ID: [id number]
== END 2023-04-21 23:59 | disposition home or self-care (01) ==
LOC: DI.WOS 08:00
PROVIDERS: ATTEND Physician Assistant Surgical
DX: S82.65XD Nondisplaced fracture of lateral malleolus of left fibula, subsequent encounter for closed fracture with routine healing (principal)

== ENCOUNTER 2023-06-12 09:47 | Outpatient (CLI) | payer MEDICARE ==
--- NOTE | 2023-06-12 10:12 | DEXA Report ---
PROCEDURE: Dexa Spine and/or Hip INDICATIONS: OSTEOPOROSIS TECHNIQUE: Dual energy x-ray absorptiometry (DXA) was performed on a Frilp System. Regions measur ed are the AP Spine, femoral neck, and if needed forearm. COMPARISON: DEXA on January 04, 2016 FINDINGS: Lumbar Spine: Bone Mineral Density: 0.881 g/cm/cm,T score: -2.5. There has been no statistically significant de e in bone mineral density since the prior study. Left Femoral Neck: Bone Mineral Density: 0.618 g/cm/cm, T score: -3. Left Hip: Bone Mineral Density: 0.695 g/cm/cm,T score: -2.5. Since the most recent prior study, there has been a statistically significant decrease in bone mineral density by 9.2 percent. (T score greater or equal to -1.0: NORMAL) (T score from -1.1 to -2.4: OSTEOPENIA) (T score less than or equal to -2.5 to: OSTEOPOROSIS) Impression: By WHO criteria, this patient has osteoporosis. No statistical interval change in bone mineral density of the lumbar spine. Interval statistical decr ease in bone mineral density of the hip. Patients with diagnosis of osteoporosis or osteopenia should have regular bone mineral density assess ment. For those eligible for Medicare, routine testing is allowed once every 2 years. Testing frequ ency can be increased for patients who have rapidly progressing disease or for those who are receivin g medical therapy to restore bone mass. Reviewed by: Velvet Hunt MD on 06/12/2023 10:11 AM PDT Approved by: Velvet Hunt MD on 06/12/2023 10:11 AM PDT Station ID: [id number]
== END 2023-06-12 09:48 | disposition home or self-care (01) ==
LOC: DI 09:47
PROVIDERS: ATTEND Internal Medicine
DX: M81.0 Age-related osteoporosis without current pathological fracture (principal); S82.892A Other fracture of left lower leg, initial encounter for closed fracture

== ENCOUNTER 2023-06-25 11:17 | Outpatient (CLI) | payer MEDICARE ==
--- NOTE | 2023-06-26 09:55 | Mammography Report ---
BILATERAL DIGITAL SCREENING MAMMOGRAM 3D/2D: 06/25/2023 CLINICAL: Routine screening. Comparison is made to exams dated: 06/12/2022 mammogram, 05/10/2020 mammogram, 02/05/2018 mammogram, an d 10/10/2016 mammogram - [facility]. There are scattered areas of fibroglandular density in both breasts (category b / 25%-50% glandular t issue). No significant masses, calcifications, or other findings are seen in either breast. There has been no significant interval change. IMPRESSION: NEGATIVE There is no mammographic evidence of malignancy. A 1 year screening mammogram is recommended. Based on the Tyrer Cuzick model (a risk assessment model) the patient's lifetime risk is 1.4% and her 10 year risk is 0.0%. According to the ACR, ACS, and NCCN guidelines, an annual breast MRI exam carmel g with mammogram is recommended if the patient's lifetime risk is 20% or greater. This exam was interpreted at Station ID: [id number]. NOTE: For mammograms, a report in lay terms will be sent to the patient. Approximately 15% of breast malignancies will not be visualized mammographically. In the management of a palpable breast mass, a negative mammogram must not discourage biopsy of a clinically suspicious lesion. Electronically Signed By: Chet gardner/ashwin:06/25/2023 13:34:16 letter sent: No_Letter ACR BI-RADS Category 1: Negative 3341F PARENCHYMAL PATTERN: (A) - The breast(s) demonstrate(s) scattered fibroglandular densities. BI-RADS CATEGORY: (1) - 1 RECOMMENDATION: (ANNUAL) - Recommend routine annual screening mammography. [id number] 1 year screening LATERALITY: (B)
== END 2023-06-25 11:18 | disposition home or self-care (01) ==
LOC: DI 11:17
PROVIDERS: ATTEND Internal Medicine
DX: Z12.31 Encounter for screening mammogram for malignant neoplasm of breast (principal); R92.323 Mammographic fibroglandular density, bilateral breasts

== ENCOUNTER 2023-06-26 10:41 | Outpatient (CLI) | payer MEDICARE ==
[2023-06-26] MEDS ORDERED: DIATRIZOATE MEGLU/DIATRIZO SOD 30 ML BOTTLE PO ONE (11:03)
[2023-06-26] MEDS ORDERED: iohexoL-300 100 ML VIAL ONE (11:03)
[2023-06-26 11:05] LABS: CREATININE 0.9 mg/dL (0.6-1.3)
[2023-06-26] MEDS: DIATRIZOATE MEGLU/DIATRIZO SOD 30 ML BOTTLE PO ONE (14:45)
[2023-06-26] MEDS: iohexoL-300 100 ML VIAL IVP ONE (14:46)
--- NOTE | 2023-06-26 16:02 | CT Report ---
PROCEDURE: Abdomen/Pelvis W INDICATIONS: LLQ ABD PAIN CONTRAST: 100 mL Isovue 300 IV. TECHNIQUE: After the administration of intravenous contrast, a CT scan of the abdomen and pelvis was performed. Images were recorded and evaluated at appropriate window settings. Reformats: coronal and sagittal. F or radiation dose reduction, the following was used: automated exposure control, adjustment of mA and /or kV according to patient size. COMPARISON: None. FINDINGS: Image quality: Diagnostic. Lower chest: Left basilar scars and atelectasis. Liver: No solid mass. Normal size. There is a 1 cm indeterminate hepatic hypodensity in the left hepa tic lobe. Gallbladder and biliary tree: Comparison is surgically absent. There is mild intrahepatic biliary dil ation. Common bile duct is dilated measuring up to 15 mm. Spleen: No splenomegaly. Pancreas: No pancreatic ductal dilation. Adrenals: No adrenal nodule. Kidneys and ureters: No hydronephrosis. No renal cystic lesion which requires follow up. No solid mas s. Stomach, bowel and peritoneum: Postsurgical changes at sigmoid rectal junction. No bowel distension. No pathologic free fluid. Diverticulosis. No acute diverticulitis. Lymph nodes: No central or retroperitoneal adenopathy. Vessels: No infrarenal aortic aneurysm. PELVIS Reproductive organs: Unremarkable. Bladder: There is a 1.9 cm enhancing mass in the left posterior lateral aspect of the urinary bladder , suspicious for neoplasm. No abnormal wall thickening, accounting for underdistention. Pelvic lymph nodes: No pelvic adenopathy by size criteria. Bones: No aggressive osseous abnormality. Moderate spondylitic changes in lumbar spine. Other: No significant ventral or inguinal hernia. IMPRESSION: 1. Diverticulosis without diverticulitis. 2. A 0.9 cm enhancing mass in the left posterior lateral aspect of the urinary bladder, suspicious fo r uroepithelial neoplasm. Recommend urology consultation and cystoscopy. 3. Intrahepatic and intrahepatic biliary dilation is present, which may be secondary to cholecystecto my. Please correlate with serum bilirubin. If there is clinical findings to suggest biliary obstructi on, consider MRCP. 4. A 1 cm indeterminate hepatic hypodensity in the left hepatic lobe. Reviewed by: Glenn Morales MD on 06/26/2023 4:01 PM PDT Approved by: Glenn Morales MD on 06/26/2023 4:01 PM PDT Station ID: [id number]
== END 2023-06-26 10:42 | disposition home or self-care (01) ==
LOC: LAB 10:41
PROVIDERS: ATTEND Internal Medicine
DX: R10.32 Left lower quadrant pain (principal); K57.30 Diverticulosis of large intestine without perforation or abscess without bleeding; N32.9 Bladder disorder, unspecified; R93.2 Abnormal findings on diagnostic imaging of liver and biliary tract; Z79.899 Other long term (current) drug therapy
CPT/HCPCS: 36415; 74177; 82565; Q9963; Q9967

== ENCOUNTER 2023-07-28 09:12 | Day surgery (SDC) | payer MEDICARE ==
[~2023-07-28 09:12] MED LIST: CIPROFLOXACIN 400 MG/200 ML 0 MG/0 ML BAG IV ONE
[2023-07-28] MEDS: LACTATED RINGERS 1,000 ML IV ONE ×2 (09:14→11:11)
--- NOTE | 2023-07-28 09:28 | ANESTHESIA ---
Pre-Anesthesia VS, & Labs - Diagnosis bladder mass - Procedure cystoscopy, resection of bladder tumor Vital Signs: Temp Pulse Resp BP Pulse Ox O2 Flow Rate 36.1 C L 75 16 156/83 H 98 07/28/23 09:20 07/28/23 09:20 07/28/23 09:20 07/28/23 09:20 07/28/23 09:20 Height: 5 ft 2.5 in Weight (kg): 58.7 kg Body Mass Index: 23.3 BMI Classification: Normal - NPO >8 hours - Is Patient ?: No - Lab Results Lab results reviewed: Yes Home Medications and Allergies Home Medications: Ambulatory Orders Alendronate [Fosamax] 70 mg PO Q7D 07/22/23 Famotidine [Pepcid] 20 mg PO BID PRN 07/22/23 Levothyroxine Sodium 100 mcg PO QDAC 05/15/17 Alendronate [Fosamax] 70 mg PO Q7D 07/22/23 Famotidine [Pepcid] 20 mg PO BID PRN 07/22/23 Allergies/Adverse Reactions: Allergies Allergy/AdvReac Type Severity Reaction Status Date / Time metronidazole [From Flagyl] Allergy Severe Unknown Verified 08/13/22 11:11 cephalexin monohydrate * Allergy Unknown Verified 08/13/22 11:11 [From Keflex] codeine Allergy Respiratory Verified 08/13/22 11:11 hydrocodone bitartrate * Allergy Nausea Verified 08/13/22 11:11 [From Vicodin] meperidine HCl * Allergy Hives Verified 08/13/22 11:11 [From Demerol] moxifloxacin HCl * Allergy Unknown Verified 08/13/22 11:11 [From Avelox] naproxen [From Naprosyn] Allergy Hives Verified 08/13/22 11:11 Penicillins Allergy Rash Verified 08/13/22 11:11 ciprofloxacin AdvReac Mild vomiting Verified 08/13/22 11:11 Anes History & Medical History - Anesthetic History Anesthesia Complications: reports: No previous complications, Post-Operative Nausea/Vomiting (after bowel surgery) Family history of Anesthesia Complications: Denies Family history of Malignant Hyperthermia: Denies - Medical History Cardiovascular: reports: High cholesterol Pulmonary: reports: None Gastrointestinal: reports: GERD, Colon polyps, Diverticulitis, Cholelithiasis Urinary: reports: None Neuro: reports: None Musculoskeletal: reports: None Endocrine/Autoimmune: reports: HyPOthyroidism Blood Disorders: reports: None Skin: reports: None Smoking Status: Never smoker - Surgical History General: reports: Cholecystectomy, Appendectomy, Bowel surgery, Colonoscopy Eyes Ears Nose Throat (EENT): reports: Cataracts, Tonsil/Adenoidectomy Gynecologic: reports: Dilation and currettage, Tubal ligation, LEEP (Cervical surgery) Exam General: Alert, Oriented x3, Cooperative Dental: WNL Mouth Openin Fingerbreadth Neck Mobility: Normal Mallampati classification: II Thyromental Distance: 4-6 cm Respiratory: Lungs clear, Normal breath sounds, No respiratory distress Cardiovascular: Regular rate Neurological: Normal speech Mental/Cognitive Status: Alert/Oriented X3, Normal for patient Cognitive Status: Within normal limits Plan Anesthesia Type: General Consent for Procedure(s) Verified and Reviewed: Yes Code Status: Attempt Resuscitation ASA classification: 2-Mild systemic disease Is this case an emergency?: No
[2023-07-28] MEDS ORDERED: DOXYCYCLINE INJ 100 MG in SODIUM CHLORIDE 0.9% MINIBAG 100 ML IV STA (10:11)
[2023-07-28] MEDS ORDERED: fentaNYL 100 MCG/2 ML VIAL IVP PRN (10:14)
[2023-07-28] MEDS ORDERED: NALOXONE 0.4 MG/ML VIAL IVP PRN (10:14)
[2023-07-28] MEDS ORDERED: HYDROmorphone 0.5 MG/0.5 ML SYRINGE IVP PRN (10:14)
[2023-07-28] MEDS ORDERED: METOCLOPRAMIDE 10 MG/2 ML VIAL IVP PRN (10:14)
[2023-07-28] MEDS ORDERED: ePHEDrine 50 MG/ML VIAL IVP PRN (10:14)
[2023-07-28] MEDS ORDERED: ATROPINE ABBOJECT 1 MG/10 ML SYRINGE IVP PRN (10:14)
[2023-07-28] MEDS ORDERED: MORPHINE 2 MG/ML CARPUJECT IVP PRN (10:14)
[2023-07-28] MEDS ORDERED: ONDANSETRON 4 MG/2 ML VIAL IVP PRN ×2 (10:14→11:10)
[2023-07-28] MEDS ORDERED: fentaNYL 100 MCG/2 ML VIAL ONE (10:27)
[2023-07-28] MEDS ORDERED: MIDAZOLAM 2 MG/2 ML VIAL ONE (10:27)
[2023-07-28] MEDS ORDERED: PROPOFOL 200 MG/20 ML VIAL IVP ONE (10:27)
[2023-07-28] MEDS ORDERED: iohexoL-240 10 ML VIAL IVP ONE (10:29)
[2023-07-28] MEDS ORDERED: LIDOCAINE 2% URO-JET 5 ML SYRINGE UR ONE (10:30)
[2023-07-28] MEDS ORDERED: DEXAMETHASONE 4 MG/ML VIAL ONE (10:46)
[2023-07-28] MEDS ORDERED: ONDANSETRON 4 MG/2 ML VIAL ONE (10:46)
[2023-07-28] MEDS ORDERED: LIDOCAINE-PF 2% 10 ML AMP SUBQ ONE (10:47)
[2023-07-28] MEDS ORDERED: ePHEDrine 50 MG/ML VIAL IVP ONE (10:51)
[2023-07-28] MEDS: LIDOCAINE 2% URO-JET 5 ML SYRINGE UR ONE (10:53)
[2023-07-28] MEDS ORDERED: LACTATED RINGERS 1,000 ML IV SCH (11:00)
[2023-07-28] MEDS ORDERED: traMADol 50 MG TABLET PO PRN (11:12)
--- NOTE | 2023-07-28 11:17 | Discharge Plan ---
Discharge Plan Problem Reviewed?: Yes Disposition: Home, Self Care Condition: Good Prescriptions: traMADol [Ultram] 50 mg PO Q4-6H PRN #10 tablet PRN Reason: Pain >8 Ondansetron Odt [Zofran Odt] 4 mg TL Q6H PRN #10 tablet PRN Reason: Nausea / Vomiting Diet: Regular Activity Restrictions: Additional Comments (as instructed) Shower Restrictions: No Driving Restrictions: No Instruction Topics: Transureth Bladder Tumor Resect Dc Additional Instructions or Follow Up instructions: You have a follow-up with Dr. Pereira August 05 at 11:15 AM. Please arrive 15 minutes early No Smoking: If you smoke, Please STOP! Call for help. Follow-up with: Helder Pereira MD [Provider Admit Priv/Credential] -
--- NOTE | 2023-07-28 11:19 | OPERATIVE REPORT ---
Operative Report - General Procedure Date: 07/28/23 Planned Procedure: Cystoscopy, transurethral resection of bladder tumor Pre-Op Diagnosis: bladder mass Procedure Performed: Cystoscopy, transurethral resection of bladder tumor 1cm in size Post Op Diagnosis: bladder mass - Procedure Note Primary Surgeon: Randall Anesthesia Provider: PARKER Burnette Anesthesia Technique: General LMA Pathology: bladder mass Estimated Blood Loss (mL): 0 Findings: 1cm left lateral sessile mass Complications: none - Other Other Information/Narrative: After informed consent was obtained the patient was brought to the OR and laid in the supine position. The patient was anesthetized per anesthesia protocols and prepped draped in the usual sterile fashion in the dorsolithotomy position. A formal timeout was performed reconfirming the patient and procedure. A 26 Kinyarwanda resectoscope was advanced easily into urinary bladder. Bladder was inspected and full and she was noted to have a sessile appearing left lateral mass about 1 cm in size which was about 2 cm lateral to the left ureteral orifice. There were no other masses lesions or other concerns. Her ureteral orifices were orthotopic in nature. Using loop electrocautery and the bipolar setting we resected this mass and sent it for analysis. Spot cautery was used for hemostasis. We filled and emptied her bladder multiple times and there was excellent hemostasis. A Uro-Jet was placed. This concluded the procedure the patient tolerated procedure well. She will follow-up in a week's time for pathology discussion.
[2023-07-28 12:33] VITALS: BP 140/74; O2SAT 96
--- NOTE | 2023-07-28 13:05 | ANESTHESIA POST OP EVALUATION ---
Anesthesia Post Eval - Post Anesthesia Eval Vitals: Last Vital Signs Temp 36.2 C L 07/28/23 12:24 Pulse 62 07/28/23 12:24 Resp 16 07/28/23 12:24 BP 140/74 H 07/28/23 12:24 Pulse Ox 96 07/28/23 12:24 O2 Flow Rate CV Function Including HR & BP: Stable Pain Control: Satisfactory Nausea & Vomiting: Negative Mental Status: Baseline Respiratory Status: Airway Patent Hydration Status: Satisfactory Anesthesia Complications: None
== END 2023-07-28 09:13 | disposition home or self-care (01) ==
LOC: SDS 09:12
PROVIDERS: ATTEND Urology
PROC: 0TBB8ZX Excision of Bladder, Via Natural or Artificial Opening Endoscopic, Diagnostic (ICD-10-PCS; principal; 2023-07-28 10:45)
DX: C67.9 Malignant neoplasm of bladder, unspecified (principal); Z87.891 Personal history of nicotine dependence
CPT/HCPCS: 52234; J7120; Q9966